=== PATIENT | male | born 1960 | race Caucasian/White ===

== ENCOUNTER 2023-06-11 14:49 | Inpatient (IN) | payer OTHER, MEDICAID, SELFPAY ==
[2023-06-11] VITALS (29 sets, daily range): BP systolic 88–154; BP diastolic 50–100; PULSE 2–100; BMI 28.2
[2023-06-11 11:42] LABS: Glucose - Point of Care 141 mg/dl (70-99)
[2023-06-11 12:13] LABS: % Basophils 0.1 % (0-2); % Immature Granulocytes 1.1 % (0-0.5); % Lymphocytes 4.2 % (20.5-51.1); % Monocytes 5.6 % (1.7-9.3); Absolute Immature Granulocytes 0.2 10^3/uL (0-0.05); Absolute Lymphocytes 0.8 10^3/uL (1.2-3.4); Absolute Monocytes 1.1 10^3/uL (0.1-0.6); Absolute Neutrophils 17.2 10^3/uL (1.4-6.5); Hematocrit 44.1 % (39.0-52.0); Mean Corp Hgb Conc. 29.5 g/dL (33.0-37.0); Mean Corpuscular Hgb 27.1 pg (27.0-31.0); Mean Corpuscular Volume 91.9 fL (80.0-94.0); Mean Platelet Volume 10.6 fL (7.4-10.4); Nucleated Red Blood Cells % 0.4 % (-); Platelet Count 299 10^3/uL (130-400); Red Cell Dist. Width 17.7 % (11.5-14.5); White Blood Cell Count 19.3 10^3/uL (4.8-10.8)
[2023-06-11 12:39] LABS: ALT (SGPT) 21 U/L (0-50); AST (SGOT) 30 U/L (17-59); Albumin 3.5 g/dl (3.5-5.0); Alkaline Phosphatase 149 U/L (38-126); Blood Urea Nitrogen 94 mg/dl (9-20); Calcium 8.6 mg/dl (8.4-10.2); Carbon Dioxide 24 mmol/L (22-30); Chloride 105 mmol/L (98-107); Glucose 149 mg/dl (70-99); Potassium 5.6 mmol/L (3.5-5.1); Sodium 136 mmol/L (135-145); Total Protein 6.3 g/dl (6.3-8.2); eGFR 29.39
--- NOTE | 2023-06-11 12:40 | ED.GENMED ---
History of Present Illness
General
Chief Complaint: Breathing Problem
Source: patient
Exam Limitations: none
Time Seen by Provider: 06/11/23 11:46
Travel History
Have you had any contact with someone who has COVID-19?: No
Do you have any symptoms of coronavirus? Fever > 100 degrees, chills, cough, shortness of breath, sore throat, loss of taste or smell, muscle aches, or headache?: No
History of Present Illness
History of Present Illness:
this is a 62yo male with extensive medical history including COPD, A-fib, cardiac arrest, pneumonia who still smokes presents feeling short of breath. He states his shortness of breath progressed over the last few days. Patient reports he feels
like it was caused by trying to use the breathing treatments at home. Patient notes he still smokes. He does not use his CPAP. He has a history of some noncompliance. He was recently admitted to the hospital back in April. Denies reported
fevers
Past History
Past History
ED Past Medical History: Arrthythmia, CHF, COPD, HTN, Hypercholesterolemia, NIDDM, Valvular disease and Other (Previous cardiac arrest)
ED Past Surgical History: Cardiac and Orthopedic
Social History
Tobacco: Smoker
Alcohol: None
Drug: None
Personal:
Living: with family
Phy Exam
Physical Exam
Physical Exam:
CONSTITUTIONAL Patient alert and oriented to person, place and time.ill-appearing. Vital signs reviewed. Markedly hypoxic
HEAD atraumatic, normocephalic.
EYES eyelids normal to inspection,Extraocular muscles intact, Conjunctiva normal, Sclera normal.
NECK normal range of motion, Trachea midline, no jugular venous distention.
RESPIRATORY CHEST moderate respiratory distress noted, Chest expansion equal, wheezing throughout, scattered rales as well.
CARDIOVASCULAR irregularly irregular and tachycardic
ABDOMEN mild distention.
UPPER EXTREMITY range of motion normal, Motor strength normal, no cyanosis, no edema.
LOWER EXTREMITY bilateral edema. Chronic venous stasis changes bilateral
NEURO Speech normal, No focal motor deficits, Jonathan coma scale 15, Memory normal, Cranial Nerves intact to screening exam.
SKIN skin warm, dry, and normal in color.
Scores
Heart Failure Risk
Heart Failure Risk Score: Not Applicable
Course
Orders/Labs/Results
Orders:
Orders
06/11/23 11:51
Electrocardiogram (*1) Urgent
Reason for Study: Shortness of Breath
06/11/23 11:53
Cr Chest Portable [CR Chest Portable - 1 View] Urgent
Comment:
Reason For Exam: sob
Reason Study Needs to be Portable: Unable to Transport
06/11/23 11:54
EKG- Treatment ONCE
06/11/23 11:56
Complete Blood Count/With Diff Urgent
Comprehensive Metabolic Panel Urgent
NT-proBNP Urgent
Troponin I Urgent
06/11/23 11:57
Bipap [RESP] Urgent
Patient to use own unit?: No
Inspiratory Pressure (cm H2O): 15
Expiratory Pressure (cm H2O): 5
06/11/23 12:40
Dexamethasone Sod Phosphate [Decadron] 10 mg IV NOW STA
06/11/23 12:54
Cefepime HCl [Maxipime] 2,000 mg IV NOW STA
06/11/23 13:00
Vancomycin [Vancocin] 1,500 mg 0.9% Sodium Chloride [Nss] 20 ml 0.9% Sodium Chloride 250 ml [Nss] 250 ml IV NOW
06/11/23 13:03
Lactic Acid Q4H
Comment: CANCEL 2nd LACTIC ACID IF 1st LACTIC ACID IS LESS THAN 2
Blood Culture Q30M
[place] Source: Blood/Venous
Specimen Description:
Blood Culture Q30M
[place] Source: Blood/Venous
Specimen Description:
06/11/23 13:15
ABG [Arterial Blood Gas] Urgent
%Oxygen/Room Air: 50
06/11/23 16:45
Lactic Acid Q4H
Comment: CANCEL 2nd LACTIC ACID IF 1st LACTIC ACID IS LESS THAN 2
Abnormal Lab Results
06/11/23 06/11/23 06/11/23
11:41 11:56 13:15
WBC 19.3 H 10^3/uL
(4.8-10.8)
MCHC 29.5 L g/dL
(33.0-37.0)
RDW 17.7 H %
(11.5-14.5)
MPV 10.6 H fL
(7.4-10.4)
Abs Immat Gran (auto) 0.2 H 10^3/uL
(0-0.05)
Absolute Neuts (auto) 17.2 H 10^3/uL
(1.4-6.5)
Absolute Lymphs (auto) 0.8 L 10^3/uL
(1.2-3.4)
Absolute Monos (auto) 1.1 H 10^3/uL
(0.1-0.6)
Immature Gran % 1.1 H %
(0-0.5)
Neutrophils % 89.0 H %
(42.2-75.2)
Lymphocytes % 4.2 L %
(20.5-51.1)
pH 7.18 L*
(7.35-7.45)
pCO2 73 H* mmHg
(35-48)
Potassium 5.6 H mmol/L
(3.5-5.1)
BUN 94 H mg/dl
(9-20)
Creatinine 2.4 H mg/dL
(0.7-1.3)
Glucose 149 H mg/dl
(70-99)
Alkaline Phosphatase 149 H U/L
(38-126)
POC Glucose 141 H mg/dl
(70-99)
06/11/23 11:56
06/11/23 11:56
Vital Signs
Initial and Last Documented VS:
Initial Vital Signs
Temp Pulse Resp BP Pulse Ox
98.4 F 120 18 152/81 74
06/11/23 11:35 06/11/23 11:35 06/11/23 11:35 06/11/23 11:35 06/11/23 11:35
Last Documented Vital Signs
Temp Pulse Resp BP Pulse Ox
98.4 F 113 19 145/100 95
06/11/23 11:35 06/11/23 13:30 06/11/23 13:15 06/11/23 13:00 06/11/23 13:15
MDM/Problems Addressed
MDM/Problems Addressed:
Acute kidney injury, acute pneumonia, acute congestive heart failure, acute exacerbation COPD
*Radiology
Radiology exam reviewed: preliminary read by ED provider (Present infiltrate)
*Pulse Oximetry
Patient hypoxic: yes
*EKG
Interpreted by ED Provider?: Yes
Interpretation: abnormal
Rate: tachycardiac
Rhythm: a-fib
Ischemia: non-specific ST changes
*Material Loader Interpretation
Rate: tachycardiac
Interpretation: abnormal
Rhythm: a-fib
*Critical Care Note
Total Time (30-74mins, 75-104mins- exclusive of procedures): 60 minutes
Data Reviewed
Review of Other/Old Records Reveals: Labs and Discharge Summary (From April 2023)
Source: patient
Further Testing Considered But Not Given:
Consider CT of the chest but suspect pneumonia
Patient Management
Discussion with other providers: Hospitalist
Escalation/DeEscalation of care consider admission/obs:
62-year-old male presents with respiratory distress and hypoxia. On reevaluation his heart rate is coming down respiratory distress improved on BiPAP but patient states he cannot tolerate it. Will trial mid flow. Admit. Broad-spectrum
antibiotics, steroids. May need bronchodilators and diuresis
ED Attending Note
-
Portions of this chart may have been created with voice recognition software.� Occasional wrong word or��sound alike� substitutions may have occurred due to the inherent limitations of voice recognition software.
Discharge Plan
Departure
Patient Disposition: Admit
Date of Disposition: 06/11/23
Time of Disposition: 13:05
Admit to: IMU
Presentation/result/management discussed w/ accepting MD/DO: Hospitalist
Discharge Problem:
Acute exacerbation of chronic obstructive pulmonary disease (COPD), Pneumonia, Acute kidney injury, CHF (congestive heart failure)
Prescriptions:
No Action
allopurinol 100 mg Tablet
100 mg PO DAILY
sotalol 120 mg Tablet
120 mg PO QPM
dapagliflozin propanediol [Farxiga] 10 mg Tablet
10 mg PO DAILY
digoxin 0.125 MG tablet
0.125 mg PO MOWEFR
metoprolol succinate 100 mg Tablet Extended Release 24 Hr
100 mg PO BID Qty: 60 0RF
prednisone 10 mg tablet
10 mg PO DIRECTED Qty: 7 0RF
Rx Instructions:
20 mg daily for 2 days, 10 mg daily for 3 days and stop, start on 06/09/23
Eliquis 5 MG tablet
5 mg PO BID Qty: 0 0RF
hydrocodone-acetaminophen 10-325 mg Tablet
1 tab PO Q4HPRN PRN (Reason: severe pain)
Trelegy Ellipta 100-62.5-25 mcg Blister With Device
1 inh INHALATION R DAILY
furosemide 40 mg tablet
20 mg PO MOWEFR
guaifenesin 600 mg tablet extended release 12hr
600 mg PO [id number] PRN (Reason: cough)
albuterol sulfate 2.5 mg /3 mL (0.083 %) Solution For Nebulization
2.5 mg INHALATION R Q4HPRN PRN (Reason: sob)
Referrals:
Maycol Dhaliwal MD [Family Provider] -
Interventions
Interventions:
*ED COVID-19 Vaccine History Last Done: 06/11/23 11:35
ED- Cardiac Assessment Last Done: 06/11/23 12:01
ED- Pulmonary Assessment Last Done: 06/11/23 12:01
[2023-06-11 12:47] LABS: NT-proBNP 7490 pg/ml
[2023-06-11] MEDS: DECADRON 10 MG IV (13:08)
[2023-06-11] MEDS: MAXIPIME 2000 MG IV (13:21)
[2023-06-11] MEDS: VANCOCIN 300 MG IV (13:22)
[2023-06-11] MEDS: VANCOCIN 300 ML IV (13:22)
[2023-06-11 13:23] LABS: B.E. -2.8 mmol/L; HCO3 27.2 mmol/L (21-28); PO2 92 mmHg (83-108)
[2023-06-11 13:26] LABS: PCO2 73 mmHg (35-48); pH 7.18 (7.35-7.45)
[2023-06-11 13:28] LABS: Lactic Acid 0.8 mmol/L (0.7-2.0)
[2023-06-11] MEDS: LASIX 40 MG IV (14:34)
--- NOTE | 2023-06-11 14:55 | HPS.HSE ---
Family Physician
-
Family Physician: Maycol Dhaliwal
Chief Complaint
-
Shortness of breath.
History of Present Illness
Patient is a 62 years old male with extensive medical history including CHF, COPD, permanent A-fib, cardiac arrest secondary to V-fib, medical noncompliance presents to the emergency room with gradually worsening shortness of breath. Patient
describes gradual worsening shortness of breath over the period of the last week. He describes productive cough, denies chest pain or fever. Denies loss of consciousness.
Patient with history of medical noncompliance. Currently smokes tobacco.
While in emergency room patient was found to be in distress, somnolent with initial pulse ox as low of 74%. Further evaluation including ABG was consistent with hypercapnia and respiratory acidosis. Patient was not able to tolerate attempted
BiPAP. He was placed on mid flow oxygen, at the time of my evaluation patient is somnolent but with no evidence of distress saturating in the low 90s on 4 L of mid flow.
After explanation of her concern of progressive respiratory failure and high risk of intubation patient would like to reconsider attempt of BiPAP.
Medical History
Past Medical History
Past Medical History: Reports Arrhythmia (Permanent A-fib), CHF and COPD
Past Surgical History: Reports Other (AICD)
Social History
Tobacco: Smoker
Alcohol: Binge drinker (Patient reports alcohol drinking at least once a week)
Drug: None
Personal:
Living: With Family
Family History
Family History: Not pertinent
Allergies / Home Medications
Allergies reflects when Allergies were last updated in [facility].
Home Medications with original date entered in [facility]
Allergy/Medication List:
Allergies
Allergy/AdvReac Type Severity Reaction Status Date / Time
Penicillins Allergy childhood Verified 06/11/23 11:38
Home Medications
allopurinol 100 mg tablet 100 mg PO DAILY Gout 02/01/23
dapagliflozin propanediol 10 mg tablet (Farxiga) 10 mg PO DAILY Diabetes 02/01/23
digoxin 125 mcg (0.125 mg) tablet 0.125 mg PO MOWEFR Arrhythmia 02/01/23
sotalol 120 mg tablet 120 mg PO QPM Arrhythmia 02/01/23
apixaban 5 mg tablet (Eliquis) 5 mg PO BID Blood clot prevention/tx #0 tabs 04/05/23
metoprolol succinate 100 mg tablet,extended release 24 hr 100 mg PO BID Arrhythmia #60 tabs 04/05/23
prednisone 10 mg tablet 10 mg PO DIRECTED Lung/breathing issues #7 tabs 04/05/23
albuterol sulfate 2.5 mg/3 mL (0.083 %) solution for nebulization 2.5 mg inhalation R Q4HPRN PRN sob 06/11/23
fluticasone fur. 100 mcg-umeclid 62.5 mcg-vilant 25 mcg inhalat.powder (Trelegy Ellipta) 1 inh inhalation R DAILY 06/11/23
furosemide 40 mg tablet 20 mg PO MOWEFR Fluid retention/Swelling 06/11/23
guaifenesin 600 mg tablet, extended release 12 hr 600 mg PO [id number] PRN cough 06/11/23
hydrocodone 10 mg-acetaminophen 325 mg tablet 1 tab PO Q4HPRN PRN severe pain 06/11/23
Review of Systems
-
A 12 point ROS was completed and negative except as noted: Yes
Respiratory: Reports See HPI
Cardiac: Reports See HPI
Physical Exam
Vital Signs
Vital Signs
Temp Pulse Resp BP Pulse Ox
98.4 F 99 19 134/81 95
06/11/23 11:35 06/11/23 14:34 06/11/23 13:15 06/11/23 14:34 06/11/23 13:15
Physical Exam
General: Well Developed, Well Nourished and No Apparent Distress
HEENT: NormoCephalic, Moist mucous membranes and Atraumatic
Respiratory: Wheezes, Rhonchi and Crackles
Cardiac: S1/S2 and Irregular Rhythm; No Murmur or Rub
GI: Soft, Non Tender, Non Distended and Normal Bowel Sounds; No Organomegaly
Rectal: Deferred by Provider
Musculoskeletal: No Clubbing, No Cyanosis and No Edema
Skin: No Rash
Neuro: Awake, Alert, Oriented, AO x 3, Nonfocal/grossly intact and Other (Somnolent)
Laboratory Results
-
06/11/23 11:56
06/11/23 11:56
Laboratory Results
pH 7.18 (7.35-7.45) L* 06/11/23 13:15
pCO2 73 mmHg (35-48) H* 06/11/23 13:15
pO2 92 mmHg (83-108) 06/11/23 13:15
HCO3 27.2 mmol/L (21-28) 06/11/23 13:15
Lactic Acid 0.8 mmol/L (0.7-2.0) 06/11/23 13:03
Total Bilirubin 1.0 mg/dl (0.2-1.3) 06/11/23 11:56
AST 30 U/L (17-59) 06/11/23 11:56
ALT 21 U/L (0-50) 06/11/23 11:56
Alkaline Phosphatase 149 U/L (38-126) H 06/11/23 11:56
Troponin I 0.020 ng/ml 06/11/23 11:56
Data Reviewed
-
Diagnostic Radiology: Report Reviewed by me
Lab Data: Labs Reviewed by me
Impression/Plan
-
IMPRESSION:
Acute hypoxic/hypercapnic respiratory failure.
Severe respiratory acidosis
Bilateral infiltrates
COPD exacerbation
Acute CHF preserved EF
FORTINO
Hyperkalemia
TME secondary to CO2 retention
Conditions prior to admission:
COPD
Obstructive sleep apnea intolerant to CPAP
CHF preserved/recovered EF: HAZEL 02/22 LVEF of 55% and severe pulmonary hypertension
V-fib status post AICD
Essential hypertension
Gout
Diabetes by history not on medications at home.
CKD stage IIIa-b
Ongoing tobacco smoker.
Alcohol use disorder
PLAN:
Acute hypoxic/hypercarbic respiratory failure.
Presents with hypoxia and pulse ox of 74% on room air.
Exam with +3 pitting edema to lower extremities
Elevated pro CHF BNP
Leukocytosis
ABG consistent with severe respiratory acidosis and hypoxia
Chest x-ray with bilateral infiltrate
Differential diagnosis for above likely multifactorial suspected decompensated CHF preserved EF also with severe pulmonary hypertension, COPD exacerbation, possible and less likely bilateral pneumonia.
Continue oxygen supplementation
Patient is willing to try BiPAP
Monitor closely, high risk for intubation if further decompensation with worsening of respiratory acidosis.
BiPAP ordered 14/08.
Lasix 40 mg IV x 1 monitor for response if stable hemodynamically we will continue with IV diuresis
Empiric antibiotics vancomycin/cefepime.
Sputum culture.
IV Decadron.
Short acting inhaled bronchodilators
Martial Arts Instructor/pulmonology consultation
Acute on chronic CHF preserved EF/pulmonary hypertension.
Preadmission regimen including metoprolol, Farxiga, furosemide 3 times a week, questionable compliance
Continue daily weight.
IV diuresis as above
COPD suspect exacerbation with decompensated respiratory failure.
Continue short acting bronchodilators, empiric antibiotics, corticosteroids
Permanent atrial fibrillation
History of V-fib status post AICD PPM.
Continue metoprolol, sotalol, digoxin
Check digoxin level
Continue anticoagulation with Eliquis
Gout
Continue allopurinol.
Alcohol use disorder.
High risk for DT
Start MSAS protocol
Thiamine
Ongoing tobacco use disorder
Extensively counseled about quitting
Full code
DVT prophylaxis/Eliquis
[2023-06-11 16:21] LABS: B.E. -4.8 mmol/L; HCO3 28.5 mmol/L (21-28); O2 Saturation % 97.6 % (94-98); PO2 97 mmHg (83-108)
[2023-06-11 16:24] LABS: PCO2 103 mmHg (35-48); pH 7.05 (7.35-7.45)
[2023-06-11 16:36] LABS: INR 1.66; PT 19.4 Sec (11.4-14.6)
[2023-06-11 16:38] LABS: GGTP 99 U/L (15-73); Magnesium 2.4 mg/dl (1.6-2.3); Phosphorus 7.6 mg/dl (2.5-4.5)
[2023-06-11 16:40] LABS: Alcohol None Detected
[2023-06-11] MEDS: LASIX 60 MG IV (16:40)
[2023-06-11 16:45] LABS: B-Hydroxybutyrate 0.19 mmol/L (0.02-0.27)
[2023-06-11 16:46] LABS: Glucose - Point of Care 129 mg/dl (70-99)
--- NOTE | 2023-06-11 16:50 | CON.INTV ---
Consultation
Consultation Request
Date/Time Consultation Requested: 06/11/2023
Date/Time Consultation Performed: 06/11/2023
Requesting Provider: Dr. Pope
Performing Provider: Dr. Mahesh Bernal
Reason for Consultation: Acute hypercapnic respiratory failure requiring noninvasive mechanical vent
Medical History
Past Medical History
Past Medical History: Other (See assessment and plan section)
Social History
Tobacco: Smoker
Drug: None
Personal:
Living: With Family
Family History
Family History: Unable to Obtain
Allergies / Home Medications
Allergies
Allergy/AdvReac Type Severity Reaction Status Date / Time
Penicillins Allergy childhood Verified 06/11/23 11:38
Home Medications
Medication Instructions Recorded Confirmed Last Taken Type
allopurinol 100 mg tablet 100 mg PO DAILY Gout 02/01/23 06/11/23 04/02/23 History
dapagliflozin propanediol 10 mg 10 mg PO DAILY Diabetes 02/01/23 06/11/23 06/10/23 History
tablet (Farxiga)
digoxin 125 mcg (0.125 mg) tablet 0.125 mg PO MOWEFR Arrhythmia 02/01/23 06/11/23 04/02/23 History
sotalol 120 mg tablet 120 mg PO QPM Arrhythmia 02/01/23 06/11/23 04/01/23 History
apixaban 5 mg tablet (Eliquis) 5 mg PO BID Blood clot 04/05/23 06/11/23 04/02/23 Rx
prevention/tx #0 tabs
metoprolol succinate 100 mg 100 mg PO BID Arrhythmia #60 tabs 04/05/23 06/11/23 Unknown Rx
tablet,extended release 24 hr
prednisone 10 mg tablet 10 mg PO DIRECTED 04/05/23 06/11/23 Unknown Rx
Lung/breathing issues #7 tabs
albuterol sulfate 2.5 mg/3 mL 2.5 mg inhalation R Q4HPRN PRN sob 06/11/23 06/11/23 Unknown History
(0.083 %) solution for nebulization
fluticasone fur. 100 mcg-umeclid 1 inh inhalation R DAILY 06/11/23 06/11/23 Unknown History
62.5 mcg-vilant 25 mcg
inhalat.powder (Trelegy Ellipta)
furosemide 40 mg tablet 20 mg PO MOWEFR Fluid 06/11/23 06/11/23 Unknown History
retention/Swelling
guaifenesin 600 mg tablet, 600 mg PO [id number] PRN cough 06/11/23 06/11/23 Unknown History
extended release 12 hr
hydrocodone 10 mg-acetaminophen 1 tab PO Q4HPRN PRN severe pain 06/11/23 06/11/23 Unknown History
325 mg tablet
Review of Systems
-
Unable to Obtain full review of systems at this time due to: Acuity and Other (Noninvasive mechanical ventilation)
Vitals / Labs / Diagnostic Testing
Vital Signs
Temp Pulse Resp BP Pulse Ox
97.9 F 101 18 146/84 97
06/11/23 16:06 06/11/23 16:00 06/11/23 16:00 06/11/23 16:00 06/11/23 16:00
Lab Data
06/11/23 11:56
Laboratory Results
06/11/23 06/11/23 06/11/23
13:15 16:07 16:10
PT 19.4 H
INR 1.66
APTT 39.0 H
pH 7.18 L* 7.05 L*
pCO2 73 H* 103 H*
pO2 92 97
HCO3 27.2 28.5 H
O2 Delivery Level
Diagnostic Testing:
Assessment
-
Acute on chronic hypercapnic respiratory failure requiring noninvasive mechanical ventilation acute exacerbation of COPD.
AB06/11/2023: 7. 18/73/92
Chest x-ray: Bilateral infiltrates.
Increased proBNP
Differential diagnosis includes pneumonia ( has leukocytosis) and/or acute on chronic heart failure with preserved ejection fraction.
HAZEL:01/2023 :Normal left ventricular systolic function. Left ventricular ejection fraction
�is 55%.Mild to moderate mitral regurgitation.Moderate tricuspid regurgitation.
Suspect chronic cor pulmonale due to underlying COPD
Conditions RELIEF MAP MODELER:
Dosed on hospital admission 04/2023: Hypercapnic respiratory failure due to COPD exacerbation.
COPD: symbicort. Patient states he is not using it or any BD or O2 at home
FLAVIO: PSG 6 y ago, once, rec CPAP, used only briefly s O2 and could not adapt, ended up returning equipment
AFib on apixaban, metoprolol, sotalol, digoxin
HFrecoveredEF on HAZEL 02-16-23 (EF 45=5% on TTE )
V-fib cardiac arrest, s/p ICD/PM
MReg
HTN
Gout
Arthritis
DM
CKD
Peripheral artery disease, s/p iliac stent
Back surgery
Smoker: 1 ppd for 49 y, down to 7 cig/d for last 2 m
ETOH use: beer, weekly intoxication for 47 y till 3 m ago when quit ETOH
Assessment and plan:
Patient is critically ill, lethargic, with acute severe hypercapnic respiratory failure, acute onset change in mental status.
Current acute decompensation possibly from infectious etiology pneumonia/with increased proBNP heart failure is a possibility on top of his underlying COPD with acute exacerbation.
-
It is noted in the past that the patient has refused oxygen therapy and has history of medical noncompliance. Notes reviewed from admission in April 2023.
-
I personally evaluated the patient at the bedside multiple times, BiPAP has been adjusted several times per
Most current settings 20/5 with a backup rate of 15.
Will repeat ABG in half an hour, if there is no significant improvement then patient will need intubation.
I did discuss in detail with the family above plan, they would want intubation if needed. and daughter.
-
Acute exacerbation of COPD:
Agree with IV corticosteroids
Discontinue inhalers as the patient is unable to perform
Start nebulizer therapy
-
Given bilateral chest x-ray with leukocytosis.
Agree with broad-spectrum antibiotics, patient was in the hospital in April. High risk for multidrug-resistant bacteria.
Sputum culture when able
Aspiration precautions
N.p.o. for now.
Cultures were sent we will follow
-
With increased proBNP, possibly heart failure with preserved ejection fraction. Alternatively, proBNP may be from cor pulmonale as the patient is not compliant with oxygen or BiPAP therapy.
Negative cardiac troponin.
He has bilateral cyanotic feet which per are chronic. Significant lower extremity edema 2-3+.
Lasix 40 mg given in the emergency room. No significant response.
Creatinine is elevated at 2.4, will give 60 mg of Lasix IV now.
Will place a Yung. Has residual of 240 cc in the bladder.
May need to repeat echocardiogram at some point.
Continue outpatient cardiac medications.
-
Acute kidney injury
Hyperkalemia
Agree with Lasix as above
Hopefully can correct acidosis
Repeat BMP at 6 PM, may need to treat hyperkalemia with IV bicarbonate if there is no improvement in acidosis.
-
History of obstructive sleep apnea: Patient did not tolerate CPAP.
Currently tolerating BiPAP here after insistence from the family and staff. Patient initially was refusing BiPAP therapy.
He also was declining intubation if necessary. Family made a decision to proceed with intubation if necessary.
-
Alcohol withdrawal protocol.
-
DVT prophylaxis-on apixaban.
If remains n.p.o., NG tube may need to be placed to provide anticoagulation therapy.
N.p.o. for now, high risk of aspiration.
-
Case has been discussed with primary team, family discussed at the bedside extensively by Dr. Bernal 06/11/2023.
Multiple conversations at the bedside after evaluation with nursing and respiratory therapy.
-
Prognosis is guarded.
-
Critical care statement: A total of 40minutes of critical care time was provided for this patient today. This includes management of unstable vital signs, evaluation of the patient at bedside, reviewing the patient's pertinent medical records
including ventilator settings, arterial blood gases, radiographs, microbiology, laboratory evaluations and discussion with primary team, critical care nursing, and respiratory therapy.
[2023-06-11] MEDS: VIBRAMYCIN 260 MG IV (17:20)
[2023-06-11] MEDS: ATIVAN 1 MG IV (17:20)
[2023-06-11 17:24] LABS: HCO3 26.6 mmol/L (21-28); O2 Saturation % 99.8 % (94-98); PO2 132 mmHg (83-108)
[2023-06-11 17:26] LABS: PCO2 94 mmHg (35-48); pH 7.06 (7.35-7.45)
[2023-06-11 17:27] LABS: Urine Albumin 2+ (Neg - Trace); Urine Bilirubin Negative (Negative); Urine Character Clear (Clear); Urine Color Yellow; Urine Glucose 1+ (Negative); Urine Ketone Negative (Negative); Urine Leukocyte Negative (Negative); Urine Nitrite Negative (Negative); Urine Occult Blood Negative (Negative); Urine Urobilinogen Negative (Neg - 1+)
--- NOTE | 2023-06-11 17:32 | W.PN.UPDATE ---
Update Note
Progress Note Update
Multiple bedside evaluations, patient became agitated. Intermittently obtunded. Unfortunately, he has failed noninvasive mechanical ventilation. Relative contraindication to 8 due to poor mental status.
Plan to pull BiPAP mask off. Required 1 dose of Ativan.
Repeat ABG without significant improvement. pH continues to be under 7.1.
Additional Lasix was given, Yung is in place.
Family at the bedside, again discuss critical situation. I am recommending intubation and mechanical ventilation. They are agreeable.
Anesthesia was called, immediately came to the bedside. Intubation will occur.
Mechanical ventilation will be started, assist-control, 500/16/60%/+5.
Repeat ABG later today.
Start propofol drip
Fentanyl IV pushes as needed
NG tube will be placed-
-
Additional critical care time 35 minutes.
[2023-06-11 17:38] LABS: Urine Bacteria Moderate (Negative); Urine Red Blood Cell 0-2 /HPF (0-2); Urine White Cell 0-2 /HPF (0-5)
[2023-06-11] MEDS: SUBLIMAZE 50 MCG IV ×3 (17:41→19:18)
[2023-06-11 17:45] LABS: Amphetamines Negative (Negative); Barbiturates Negative (Negative); Benzodiazepines Negative (Negative); Buprenorphine Negative (Negative); Cocaine Negative (Negative); Marijuana Negative (Negative); Methadone Negative (Negative); Methamphetamines Negative (Negative); Opiates Positive (Negative); Phencyclidine Negative (Negative); Tricyclic Antidepressants Negative (Negative)
--- NOTE | 2023-06-11 17:49 | W.PN.ANESINT ---
Anesthesia Intubation Note
- Intubation Note
Intubation Note:
Diagnosis: respiratory distress
Blade: glidescope
Tube Size: 8.0
Depth: 24cm
Side Taped: center
Drugs Used: 40mg propofol
Grade View: 1
EtCO2 Present: yes
Atraumatic: yes
Attempts: 1
Insertion Start and Stop Time: 1735 start 1740 end
SaO2 Pre: 95
SaO2 Post: 99
Glidescope Used: yes
Other Airway Adjustments: none
Pre-Oxygenated: yes
Portable Chest X-Ray:
RSI:
Suctioned: not necessary
Bilateral Breath Sounds Confirmed: b/l breathsounds confirmed
Vent Settings:
Settings per _x__Attending Physician
[2023-06-11] MEDS: DUONEB 3 ML INH ×2 (17:53→19:34)
[2023-06-11 18:02] LABS: Fentanyl, Urine Negative (Negative)
--- NOTE | 2023-06-11 18:03 | PTCARENOTE ---
Pt to ICU for COPD, PNA, CHF, FORTINO on BIPAP. ABG drawn and BIPAP settings increased. ABG redrawn and Pt intubated by anesthesia. 8.0/23 lip on right. AC 16/500/5/40%. Sucretions via ETT yellow/green and copious. Insp wheezes and rhonchi. Sedated
with propofol and fentanyl IVP. Dobhoff placed R nare 70cm. No UOP from lasix given in ED. Bladder scan 260cc. Dr. Bernal notified and dias ordered. 14F placed with yellow urine out. Lasix 60mg IVP given as ordered. Labs drawn as ordered. CXR
performed for verification of ETT and Dobhoff-to be read. Right DP pulse not present by doppler, all other pedal pulses dopplered. BLE cool, pale. Dr. Bernal notified. Vancomycin and doxy infused.
[2023-06-11 18:33] LABS: Blood Urea Nitrogen 104 mg/dl (9-20); Calcium 8.4 mg/dl (8.4-10.2); Carbon Dioxide 26 mmol/L (22-30); Chloride 102 mmol/L (98-107); Estimated Creatinine Clearance 32 ml/min; Glucose 143 mg/dl (70-99); Potassium 6.2 mmol/L (3.5-5.1); Sodium 138 mmol/L (135-145); Triglycerides 142 mg/dl (10-149)
[2023-06-11] MEDS: BETAPACE 120 MG PO (18:39)
[2023-06-11] MEDS: THIAMINE INJECTION 200 MG IV (19:21)
[2023-06-11] MEDS: DEXTROSE 50% SYRINGE 25 GRAMS IV (19:21)
[2023-06-11] MEDS: NOVOLIN R 10 UNITS IV (19:21)
[2023-06-11] MEDS: ELIQUIS 5 MG TUBE (19:32)
[2023-06-11] MEDS: SUBLIMAZE 100 IV (19:32)
[2023-06-11 19:37] LABS: B.E. -2.1 mmol/L; O2 Saturation % 87.8 % (94-98); PCO2 52 mmHg (35-48); pH 7.29 (7.35-7.45)
[2023-06-11 19:39] LABS: PO2 56 mmHg (83-108)
--- NOTE | 2023-06-11 19:52 | PHA.VAN.IN ---
Assessment
- Assessment
Renal Function: Appears elevated from baseline (1.5 - 1.7)
Maximum Temperature: 98.4 F oral 06/10 @ 1135
Minimum Temperature: 96.7 F core 06/10 @ 1913
Concomitant Antimicrobials: cefepime, doxycycline
Plan
- Plan
Initial / Loading Dose: vanc 1500mg administered in ED
Maintenance Regimen: dosing by level
Monitoring: random level 06/11 0600
MRSA Screen: Ordered per protocol
Pharmacokinetics Vancomycin I
- -
Patient Age: 62
Patient Sex: Male
Vancomycin Day #: 1
Indication: Pulmonary/Respiratory
Requesting Provider: Dr. Pope
Pertinent Antimicrobial Allergies:
penicillin (as a child) - unknown reaction
Height / Weight:
Height 6 ft
Actual Weight 94.2 kg
- Vital Signs / Lab Results
Temp Pulse Resp BP Pulse Ox
96.7 F L 104 17 93/70 98
06/11/23 19:13 06/11/23 18:15 06/11/23 18:15 06/11/23 18:15 06/11/23 18:15
Lab Results - Hematology
06/11/23
11:56
WBC 19.3 H
Lab Results - Chemistry
06/11/23 06/11/23
11:56 17:52
BUN 94 H 104 H*
Creatinine 2.4 H 2.6 H
Estimated Creat Clear 32
Albumin 3.5
06/11/23
13:03
Lactic Acid 0.8
Lab Results - Urine
06/11/23
17:08
Urine Nitrite Negative
Ur Leukocyte Esterase Negative
Urine WBC 0-2
Urine Bacteria Moderate A
Microbiology Results
06/11/23 17:53 Gram Stain - Preliminary
Endotracheal
--- NOTE | 2023-06-11 20:00 | PTCARENOTE ---
Patient received in bed, intubated and sedated on Propofol. Bilateral wrist restraints maintained. Afob on monitor, afebrile, blood pressure as documented. Bilateral PTs present by doppler, +3 bilateral lwer extremity edema. #8 ETT at 23 cm at
the right lip, tolerating vent settings A/C 16 TV 500 FIO2 40% Peep 5, lungs coarse bilaterally with scattered wheeze, pulse ox 98%. Suctioned for large amount of yellow green sputum. DHT in right nare, abdomen round with hy[oactive bowel sounds.
Thermister dias draining large amounts of urine. Foam dressings on sacrum and left arm. #20 g in right forearm with Propofol gtt infusing. #18 g in left arm flushed and patent. Turned and repositioned
[2023-06-11] MEDS: DECADRON 4 MG IV (21:05)
[2023-06-11] MEDS: DIPRIVAN 100 IV (22:55)
[2023-06-11 23:46] LABS: Glucose - Point of Care 125 mg/dl (70-99)
[2023-06-12] VITALS (24 sets, daily range): BP systolic 98–142; BP diastolic 53–93; BMI 27.2
[2023-06-12] MEDS: MAXIPIME 2000 MG IV ×2 (00:11→12:37)
[2023-06-12] MEDS: STERILE WATER FOR INJECTION 10 ML IV ×2 (00:12→12:37)
[2023-06-12] MEDS: NOVOLOG FLEXPEN-LOW RESISTANCE SC ×2 (00:16→06:13)
--- NOTE | 2023-06-12 00:17 | PTCARENOTE ---
Patient reassessed, no changes in assessment
[2023-06-12 01:24] LABS: % Basophils 0.1 % (0-2); % Lymphocytes 5.1 % (20.5-51.1); % Neutrophils 91.8 % (42.2-75.2); Absolute Immature Granulocytes 0.1 10^3/uL (0-0.05); Absolute Lymphocytes 0.6 10^3/uL (1.2-3.4); Absolute Monocytes 0.2 10^3/uL (0.1-0.6); Absolute Neutrophils 9.8 10^3/uL (1.4-6.5); Hematocrit 36.8 % (39.0-52.0); Hemoglobin 11.6 g/dL (13.0-18.0); Mean Corp Hgb Conc. 31.5 g/dL (33.0-37.0); Mean Corpuscular Hgb 27.2 pg (27.0-31.0); Mean Corpuscular Volume 86.4 fL (80.0-94.0); Mean Platelet Volume 9.7 fL (7.4-10.4); Nucleated Red Blood Cells % 0.4 % (-); Platelet Count 203 10^3/uL (130-400); Red Blood Cell Count 4.26 10^6/uL (4.70-6.10); Red Cell Dist. Width 17.7 % (11.5-14.5); White Blood Cell Count 10.7 10^3/uL (4.8-10.8)
[2023-06-12 01:58] LABS: Blood Urea Nitrogen 97 mg/dl (9-20); Calcium 8.5 mg/dl (8.4-10.2); Carbon Dioxide 21 mmol/L (22-30); Chloride 107 mmol/L (98-107); Estimated Creatinine Clearance 36 ml/min; Glucose 126 mg/dl (70-99); Magnesium 2.1 mg/dl (1.6-2.3); Potassium 4.9 mmol/L (3.5-5.1); Sodium 136 mmol/L (135-145); eGFR 30.93
--- NOTE | 2023-06-12 03:15 | PTCARENOTE ---
Patient given CHG bath, linens changed. Turned and repositioned. No other changes in assessment
[2023-06-12] MEDS: DIPRIVAN 100 IV ×4 (04:17→19:14)
[2023-06-12 05:30] LABS: Vancomycin Random 16.2 ug/ml
[2023-06-12] MEDS: DECADRON 4 MG IV ×3 (05:33→21:57)
[2023-06-12] MEDS: VIBRAMYCIN 260 MG IV (05:33)
[2023-06-12 06:19] LABS: Glucose - Point of Care 129 mg/dl (70-99)
[2023-06-12] MEDS: DUONEB 3 ML INH ×3 (07:07→19:51)
--- NOTE | 2023-06-12 07:53 | CON.CAR ---
Addendum entered and electronically signed by Dank Page MD 06/12/23 11:46:
I saw and examined the patient.
The MANAGER [employer]'s note was reviewed and I agree with the note.
Comment: 62 year old male (known to Dr. Dvais, his primary track announcer), with VF arrest status post ICD, chronic HFpEF, COPD, chronic tobacco abuse, type 2 diabetes mellitus, and permanent atrial fibrillation who presented to the emergency
department with shortness of breath. He ultimately required intubation and remains intubated. He appears to have a PNA and acute on chronic HFpEF exacerbation.
- AF is rate controlled, if FORTINO does not improve likely will need to stop dig
- cont sotalol
- diuresis as able
Original Note:
Consultation
Consultation Request
Date/Time Consultation Requested: 06/11/23 19:00
Date/Time Consultation Performed: 06/12/23 09:00
Requesting Provider: ADAMARIS Harvey
Performing Provider: ADAMARIS Anne for Dr. Page
Reason for Consultation: Heart failure
Medical History
-
Chief Complaint: Shortness of breath
History of Present Illness:
Meek Og is a 62 year old male (known to Dr. Davis, his primary track announcer), with VF arrest status post ICD, chronic HFpEF, COPD, chronic tobacco abuse, type 2 diabetes mellitus, and permanent atrial fibrillation who presented to the emergency
department with shortness of breath. He endorsed shortness of breath with starting earlier this week. It progressively got worse. He presented to the emergency department with an SpO2 of 74%. Initial ABG consistent with hypercapnia and
respiratory acidosis. Noninvasive ventilation was attempted with BiPAP but unfortunately he was unable to tolerate it. He required intubation yesterday evening. This HPI is limited as the patient is currently intubated and sedated on mechanical
ventilation.
Past Medical History
Past Medical History: Arrhythmias (VF arrest, permanent atrial fibrillation), CAD, Cancer, HTN and Other (PAD)
Social History
Tobacco: Smoker
Alcohol: Occasional
Personal:
Living: With Family
Family History
Family History: Reviewed & Not Pertinent
Allergies / Home Medications
Allergy/AdvReac Type Severity Reaction Status Date / Time
Penicillins Allergy childhood Verified 06/11/23 11:38
Medication Instructions Recorded Confirmed Type
allopurinol 100 mg tablet 100 mg PO DAILY Gout 02/01/23 06/11/23 History
dapagliflozin propanediol 10 mg 10 mg PO DAILY Diabetes 02/01/23 06/11/23 History
tablet (Farxiga)
digoxin 125 mcg (0.125 mg) tablet 0.125 mg PO MOWEFR Arrhythmia 02/01/23 06/11/23 History
sotalol 120 mg tablet 120 mg PO QPM Arrhythmia 02/01/23 06/11/23 History
apixaban 5 mg tablet (Eliquis) 5 mg PO BID Blood clot 04/05/23 06/11/23 Rx
prevention/tx #0 tabs
metoprolol succinate 100 mg 100 mg PO BID Arrhythmia #60 tabs 04/05/23 06/11/23 Rx
tablet,extended release 24 hr
prednisone 10 mg tablet 10 mg PO DIRECTED 04/05/23 06/11/23 Rx
Lung/breathing issues #7 tabs
albuterol sulfate 2.5 mg/3 mL 2.5 mg inhalation R Q4HPRN PRN sob 06/11/23 06/11/23 History
(0.083 %) solution for nebulization
fluticasone fur. 100 mcg-umeclid 1 inh inhalation R DAILY 06/11/23 06/11/23 History
62.5 mcg-vilant 25 mcg
inhalat.powder (Trelegy Ellipta)
furosemide 40 mg tablet 20 mg PO MOWEFR Fluid 06/11/23 06/11/23 History
retention/Swelling
guaifenesin 600 mg tablet, 600 mg PO [id number] PRN cough 06/11/23 06/11/23 History
extended release 12 hr
hydrocodone 10 mg-acetaminophen 1 tab PO Q4HPRN PRN severe pain 06/11/23 06/11/23 History
325 mg tablet
Review of Systems
-
Unable to obtain full review of systems at this time due to: Patient Intubation
Physical Exam
Vital Signs
Temp Pulse Resp BP Pulse Ox
98.4 F 80 18 110/63 96
06/12/23 07:48 06/12/23 05:00 06/12/23 05:00 06/12/23 05:00 06/12/23 05:00
Lab Results
06/12/23 01:00
06/12/23 01:00
Troponin I 0.020 ng/ml 06/11/23 11:56
Neu-Z-Zxdksfbyhlz Pept 7490 pg/ml 06/11/23 11:56
Physical Exam
General: Well Developed, Well Nourished, No Apparent Distress and Comfortable
HEENT: Normocephalic, Anicteric and Moist Mucous Membranes
Respiratory: Clear
Cardiac: S1/S2 and Regular Rhythm
Breast: Deferred by me
GI: Soft, Non Tender, Non Distended and Normal Bowel Sounds
Rectal: Deferred by Provider
Genito-urinary: No Costovertebral Tender
Musculoskeletal: No Clubbing, No Cyanosis and Edema (+2 LE edema)
Skin: Warm and Dry
Neuro: Other (sedated)
Hematologic/Lymphatic: No Lymphadenopathy
Psych: Calm
Impression / Plan
-
Acute hypoxic respiratory failure, severe, requiring intubation
-Multifactorial in the setting of COPD and HFpEF, consider cor pulmonale
COPD, acute exacerbation, per pulmonary
HFpEF, acute on chronic
-Diuresis has been ordered, furosemide 60 mg IV, no output to 40mg
-Hold Farxiga given FORTINO
-Trend daily weight, I/O, and BMP with diuresis
-Heart failure education after he is extubated
Permanent atrial fibrillation
-Rate controlled
-May need to discontinue digoxin and decrease sotalol given FORTINO, follow
-Oral Anticoagulation: Apixaban 5 mg twice daily
-[id number]: Score at least 3 (Heart failure, HTN, Diabetes Mellitus)
FORTINO on CKD
Hypertension, BP currently at goal, mild cLVH on TTE
Pulmonary hypertension, PASP 86 mmHg on most recent echocardiogram
Kbs-xmevklr-gyhzqbzeb diabetes mellitus, HgbA1c worsening 7.1%
Ventricular fibrillation arrest, status post ICD, on sotalol, followed in our device clinic
Current tobacco smoker, cessation recommended
Data Reviewed
-
EKG: Report Reviewed by me (Atrial fibrillation with rapid ventricular response, lateral T wave abnormality, rate 116)
Radiology: Report Reviewed by me (CXR: Bibasilar airspace disease/pneumonia.)
Medical Tests (Nuc Med, Echo etc): Report Reviewed by me (Echocardiogram as above)
Labs: Labs Reviewed by me
Old Records: Reviewed
[2023-06-12] MEDS: ELIQUIS 5 MG TUBE ×2 (08:07→19:13)
[2023-06-12] MEDS: FOLVITE 1 MG TUBE (08:07)
[2023-06-12] MEDS: ZYLOPRIM 100 MG TUBE (08:07)
[2023-06-12] MEDS: MIRALAX TUBE (08:07)
[2023-06-12] MEDS: THIAMINE INJECTION 200 MG IV ×2 (08:07→19:12)
[2023-06-12 08:25] LABS: B.E. -0.7 mmol/L; HCO3 23.2 mmol/L (21-28); O2 Saturation % 99.5 % (94-98); PCO2 35 mmHg (35-48); PO2 112 mmHg (83-108); pH 7.43 (7.35-7.45)
[2023-06-12 08:26] LABS: Glycohemoglobin (HgbA1c) 7.1 % (4.0-5.6)
[2023-06-12] MEDS: LASIX 60 MG IV (09:11)
[2023-06-12 10:08] LABS: Digoxin 0.5 ng/ml (0.8-2.0)
[2023-06-12 11:05] LABS: TSH 0.65 uIU/ml (0.47-4.68)
[2023-06-12] MEDS: SUBLIMAZE 100 IV (11:43)
[2023-06-12 11:56] LABS: Glucose - Point of Care 175 mg/dl (70-99)
--- NOTE | 2023-06-12 12:00 | PTCARENOTE ---
VSS. Assessment unchanged. Tolerating vent setting. Daughter at bedside.
[2023-06-12] MEDS: NSS (PRESERVATIVE FREE) 10 ML IV (12:36)
[2023-06-12] MEDS: PROTONIX IV 40 MG IV (12:36)
[2023-06-12] MEDS: NOVOLOG FLEXPEN-LOW RESISTANCE 1 UNITS SC ×2 (12:43→17:52)
--- NOTE | 2023-06-12 12:56 | W.PN.INTV ---
Addendum entered and electronically signed by Mahesh Arciniega MD 06/12/23 14:02:
Patient remains critically ill.
See note below.
Original Note:
Documented by User: Cristal Small MD, Resident 06/12/23 13:45
Today's Communication / Plan
Recommendations
Continue mechanical ventilation
Cefepime
Doxycycline
Pantoprazole
Assessment
-
Acute on chronic hypercapnic respiratory failure requiring mechanical ventilation, acute exacerbation of COPD.
ABG 06/11/2023: 7.06, 94/132
Chest x-ray: Bilateral infiltrates.
Increased proBNP
Differential diagnosis includes pneumonia ( has leukocytosis) and/or acute on chronic heart failure with preserved ejection fraction.
HAZEL:01/2023 :Normal left ventricular systolic function. Left ventricular ejection fraction
�is 55%.Mild to moderate mitral regurgitation.Moderate tricuspid regurgitation.
Suspect chronic cor pulmonale due to underlying COPD
Patient failed BiPAP overnight, ABGs without significant improvement, patient is intubated and mechanically ventilated.
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
Dosed on hospital admission 04/2023: Hypercapnic respiratory failure due to COPD exacerbation.
COPD: symbicort. Patient states he is not using it or any BD or O2 at home
FLAVIO: PSG 6 y ago, once, rec CPAP, used only briefly s O2 and could not adapt, ended up returning equipment
AFib on apixaban, metoprolol, sotalol, digoxin
HFrecoveredEF on HAZEL 02-16-23 (EF 45=5% on TTE )
V-fib cardiac arrest, s/p ICD/PM
MReg
HTN
Gout
Arthritis
DM
CKD
Peripheral artery disease, s/p iliac stent
Back surgery
Smoker: 1 ppd for 49 y, down to 7 cig/d for last 2 m
ETOH use: beer, weekly intoxication for 49 y till 3 m ago when quit ETOH
Assessment and plan:
Patient is critically ill, lethargic, with acute severe hypercapnic respiratory failure, acute onset change in mental status.
Current acute decompensation possibly from infectious etiology pneumonia/with increased proBNP heart failure is a possibility on top of his underlying COPD with acute exacerbation.It is noted in the past that the patient has refused oxygen therapy
and has history of medical noncompliance. Notes reviewed from admission in April 2023.
Patient was started on BiPAP initially in the ED, patient became agitated, intermittently obtunded.� Unfortunately, he has failed noninvasive mechanical ventilation.� Relative contraindication to 8 due to poor mental status.
Repeat ABG without significant improvement.� pH continues to be under 7.1.
Plan to pull BiPAP mask off and start him on mechanical ventilation.�
Required 1 dose of Ativan.
Additional Lasix was given, Yung is in place.
Anesthesia called in. Patient was intubated and mechanically ventilated after discussing with the family.
NG tube placed
ABG today pH 7.43, pCO2 35, pO2 112
-Acute exacerbation of COPD:
IV corticosteroids
Inhalers discontinued because of patient's condition.
DuoNeb started
Given bilateral chest x-ray with leukocytosis, started on antibiotics, cefepime and doxycycline. Patient was in the hospital in April, high risk for multidrug-resistant bacteria.
Aspiration precautions
N.p.o. for now.
Cultures were sent we will follow
-Heart failure with preserved ejection fraction. proBNP elevated to 7490. Alternatively, proBNP may be from cor pulmonale as the patient is not compliant with oxygen or BiPAP therapy.
Negative cardiac troponin.
He has bilateral cyanotic feet which per are chronic. Significant lower extremity edema 2-3+.
Lasix 40 mg given in the emergency room. No significant response.
Creatinine is elevated at 2.4, Lasix dose increased to 60 mg IV
May need to repeat echocardiogram at some point.
Continue outpatient cardiac medications.
-Acute kidney injury
Hyperkalemia, got corrected after mechanical ventilation, K today 4.9, creatinine 2.3
Lasix dose increased to 60 mg IV
-History of obstructive sleep apnea: Patient did not tolerate CPAP at home
Family made a decision to proceed with intubation, mechanical ventilation after BiPAP failure
-Permanent atrial fibrillation
� Rate controlled with sotalol 120 mg
�Anticoagulation with apixaban
-Alcohol withdrawal protocol.
-DVT prophylaxis-on apixaban.
N.p.o. for now, high risk of aspiration.
Subjective Dataa
Subjective Data
Date of Service:
Date of Service: June 12, 2023
Review of Systems
General: Unobtainable - Sedation
Objective Data
Data Reviewed
Vital Signs / I&O / Oxygen:
Vital Signs
Temp Pulse Resp BP Pulse Ox
98.0 F 102 18 129/73 95
06/12/23 11:18 06/12/23 11:00 06/12/23 11:00 06/12/23 11:00 06/12/23 12:00
Intake and Output
06/11/23 06/12/23 06/13/23
06:59 06:59 06:59
Intake Total 502 / 502 133 / 133
Output Total 2675 / 2675 635 / 635
Balance -2173 / -2173 -502 / -502
SaO2 [A/C] 95
SaO2 96
Nasal Cannula flow liters per 10
minute
Physical Exam
General: Other (Patient is sedated)
HEENT: Normocephalic and Anicteric
Cardiovascular: S1-S2 and Peripheral Edema
Respiratory: Wheeze and Crackles
Labs/Micro/Reports
Lab Data
06/12/23 01:00
06/12/23 01:00
Laboratory Results
06/11/23 06/11/23 06/11/23
13:15 16:07 16:10
PT 19.4 H
INR 1.66
APTT 39.0 H
pH 7.18 L* 7.05 L*
pCO2 73 H* 103 H*
pO2 92 97
HCO3 27.2 28.5 H
O2 Delivery Level
06/11/23 06/11/23 06/12/23
17:06 19:31 08:13
PT
INR
APTT
pH 7.06 L* 7.29 L 7.43
pCO2 94 H* 52 H 35
pO2 132 H 56 L* 112 H
HCO3 26.6 25.0 23.2
O2 Delivery Level
Microbiology
06/11/23 17:53 Endotracheal Respiratory Culture - Preliminary
06/11/23 17:53 Endotracheal Gram Stain - Preliminary
06/11/23 13:03 Blood/Venous Blood Culture - Preliminary
Streptococcus species
06/11/23 13:03 Blood/Venous Gram Stain - Preliminary
06/12/23 04:54 Nose Nasal Screen MRSA (PCR) - Final
MRSA not detected - performed by PCR methodology.

Documented by User: Mahesh Arciniega MD 06/12/23 13:59
Today's Communication / Plan
Recommendations
Continue mechanical ventilation without change
Spontaneous breathing trial tomorrow if improved
Continue sedation
Cefepime
Doxycycli continue antibiotics
Follow final cultures
Diuresis today
Assessment
-
Acute on chronic hypercapnic respiratory failure requiring mechanical ventilation, acute exacerbation of COPD.
ABG 06/11/2023: 7.06, 94/132
Emergently intubated 06/11/2023
Chest x-ray: Bilateral infiltrates.
Increased proBNP
Differential diagnosis includes pneumonia ( has leukocytosis) and/or acute on chronic heart failure with preserved ejection fraction.
HAZEL:01/2023 :Normal left ventricular systolic function. Left ventricular ejection fraction
�is 55%.Mild to moderate mitral regurgitation.Moderate tricuspid regurgitation.
Suspect chronic cor pulmonale due to underlying COPD
Patient failed BiPAP overnight, ABGs without significant improvement, patient is intubated and mechanically ventilated.
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
Dosed on hospital admission 04/2023: Hypercapnic respiratory failure due to COPD exacerbation.
COPD: symbicort. Patient states he is not using it or any BD or O2 at home
FLAVIO: PSG 6 y ago, once, rec CPAP, used only briefly s O2 and could not adapt, ended up returning equipment
AFib on apixaban, metoprolol, sotalol, digoxin
HFrecoveredEF on HAZEL 02-16-23 (EF 45=5% on TTE )
V-fib cardiac arrest, s/p ICD/PM
MReg
HTN
Gout
Arthritis
DM
CKD
Peripheral artery disease, s/p iliac stent
Back surgery
Smoker: 1 ppd for 49 y, down to 7 cig/d for last 2 m
ETOH use: beer, weekly intoxication for 49 y till 3 m ago when quit ETOH
Assessment and plan:
Patient is critically ill, lethargic, with acute severe hypercapnic respiratory failure, acute onset change in mental status. Required emergent intubation 06/11/2023, does not respond to BiPAP therapy.
Current acute decompensation possibly from infectious etiology pneumonia/with increased proBNP heart failure is a possibility on top of his underlying COPD with acute exacerbation.It is noted in the past that the patient has refused oxygen therapy
and has history of medical noncompliance. Notes reviewed from admission in April 2023.
Patient was started on BiPAP initially in the ED, patient became agitated, intermittently obtunded.� Unfortunately, he has failed noninvasive mechanical ventilation.� Relative contraindication to 8 due to poor mental status.
Repeat ABG without significant improvement.� pH continues to be under 7.1.
Then intubated 06/11/2023.
Responded well to diuresis. Negative fluid balance. Lower extremity edema improving.
-
NG tube placed
ABG today pH 7.43, pCO2 35, pO2 112-mechanical ventilation settings reviewed.
Pulmonary mechanics acceptable, improved.
FiO2 40%
Continue current mechanical ventilation without change
Sedation breaks per protocol
Will maintain RASS 0(-1)
-Acute exacerbation of COPD: Improved bronchospasm.
Continue without change, IV corticosteroids
Inhalers discontinued because of patient's condition.
DuoNeb started
-
Given bilateral chest x-ray with leukocytosis, started on antibiotics, cefepime and doxycycline. Patient was in the hospital in April, high risk for multidrug-resistant bacteria. Vancomycin discontinued, MRSA screen negative.
Aspiration precautions
N.p.o. for now.
Blood culture positive with Streptococcus species.
Sputum culture pending
-
-Heart failure with preserved ejection fraction. proBNP elevated to 7490. Alternatively, proBNP may be from cor pulmonale as the patient is not compliant with oxygen or BiPAP therapy.
Negative cardiac troponin.
He has bilateral cyanotic feet which per are chronic. Significant lower extremity edema 2-3+.
Lasix 40 mg given in the emergency room. No significant response.
Creatinine is elevated at 2.4, Lasix dose increased to 60 mg IV
May need to repeat echocardiogram at some point. Will reassess depending on clinical situation.
Will repeat dose of Lasix today 60 mg.
Continue outpatient cardiac medications.
-Acute kidney injury, improved.
Hyperkalemia, got corrected after mechanical ventilation, K today 4.9, creatinine 2.3
Continue diuresis intermittently. Follow renal function and electrolytes.
-History of obstructive sleep apnea: Patient did not tolerate CPAP at home
Family made a decision to proceed with intubation, mechanical ventilation after BiPAP failure
-Permanent atrial fibrillation
� Rate controlled with sotalol 120 mg
�Anticoagulation with apixaban
Cardiology following the patient.
-? Chronic alcohol use, discussed with patient has not drank in about 3 weeks.
No need for alcohol withdrawal protocol.
-DVT prophylaxis-on apixaban.
N.p.o. for now, high risk of aspiration. Dobbhoff tube in place
Start tube feedings today
-
Subjective Dataa
Subjective Data
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
Subjective:
Patient is sedated, on mechanical ventilation. Critically ill.
Objective Data
Physical Exam
Respiratory: ET Tube (Yellow secretions. No hemoptysis.)
GI: Distended (Obese)
Neurology: Depressed (Sedated, occasionally open eyes on sedation.)
--- NOTE | 2023-06-12 13:08 | PTCARENOTE ---
Patient received in bed, intubated and sedated on Propofol and fentanyl. Bilateral wrist restraints maintained. Afib on monitor, afebrile, blood pressure as documented. Bilateral PT/DP present by doppler, +3 bilateral lewer extremity edema. #8
ETT at 23 cm at the left lip, tolerating vent settings A/C18/500/5/40%, lungs coarse bilaterally with scattered wheeze, pulse ox 95%. Suctioned for large amount of yellow bloody sputum. DHT in right nare, abdomen round with hypoactive bowel
sounds. Thermister dias draining large amounts of urine. Foam dressings on sacrum, heels, and left arm. #20 g in right forearm with Propofol/fentanyl gtt infusing. #18 g in left arm KVO. Turned and repositioned
--- NOTE | 2023-06-12 16:30 | PTCARENOTE ---
Echo performed at bedside as ordered. Afib continues. Sedation gtts unchanged this shift with RASS -2.
--- NOTE | 2023-06-12 16:47 | W.PN.HOSP.TC ---
Today's Communication/Plan
-
Ventilatory support
Continue sedation
IV diuresis.
IV antibiotics
IV corticosteroids
Total Critical Care Time_45____ minutes. I was immediately available to the patient and staff. I personally examined, reviewed labs, diagnostic images/reports, interpretations, treatment plans, discussed patient care with other providers and
family or caregivers (if patient is unable to make decisions), entered orders as appropriate and documented the medical record.
Assessment / Plan
Assessment / Plan
IMPRESSION:
Acute hypoxic/hypercapnic respiratory failure.
VDRF
� Intubated on 06/10
Severe respiratory acidosis
Bilateral infiltrates
COPD exacerbation
Acute CHF preserved EF
FORTINO
Hyperkalemia
TME secondary to CO2 retention
Conditions prior to admission:
COPD
Obstructive sleep apnea intolerant to CPAP
CHF preserved/recovered EF: HAZEL 02/22 LVEF of 55% and severe pulmonary hypertension
V-fib status post AICD
Essential hypertension
Gout
Diabetes by history not on medications at home.
CKD stage IIIa-b
Ongoing tobacco smoker.
Alcohol use disorder
PLAN:
Acute hypoxic/hypercarbic respiratory failure.
Presents with hypoxia and pulse ox of 74% on room air.
Exam with +3 pitting edema to lower extremities
Elevated pro CHF BNP
Leukocytosis
ABG consistent with severe respiratory acidosis and hypoxia
Chest x-ray with bilateral infiltrate
Differential diagnosis for above likely multifactorial suspected decompensated CHF preserved EF also with severe pulmonary hypertension, COPD exacerbation, possible and less likely bilateral pneumonia.
Failed attempt of BiPAP with persistent respiratory acidosis and required intubation
� Intubated on 06/10
Nutrition. NG tube in place.
Hold oral medications converted via NG tube
Acute on chronic CHF preserved EF/pulmonary hypertension.
Preadmission regimen including metoprolol, Farxiga, furosemide 3 times a week, questionable compliance
Continue daily weight.
Continue IV diuresis
Acute kidney
Suspect prerenal
Monitor creatinine while on IV Lasix
Yung catheter in place since 06/10
COPD suspect exacerbation with decompensated respiratory failure.
Continue short acting bronchodilators,
Blood culture with strep species pending final notification
empiric antibiotics: Cefepime/doxycycline. Initially dose vancomycin discontinued.
corticosteroids
Permanent atrial fibrillation
History of V-fib status post AICD PPM.
Continue metoprolol, sotalol, digoxin
Check digoxin level
Continue anticoagulation with Eliquis
Gout
Continue allopurinol.
Alcohol use disorder.
High risk for DT
Start MSAS protocol
Thiamine
Ongoing tobacco use disorder
Extensively counseled about quitting
Full code
DVT prophylaxis/Eliquis
Anticipated Discharge: > 48 hours
Subjective/Interval History
-
Date of Service: June 12, 2023
Objective Data
-
Labs:
Laboratory Results
06/12/23
08:13
HCO3 23.2
Vital Signs:
Vital Signs
Temp Pulse Resp BP Pulse Ox
97.5 F 89 18 109/72 95
06/12/23 15:36 06/12/23 16:00 06/12/23 16:00 06/12/23 16:00 06/12/23 16:00
I&O
06/11/23 06/12/23 06/13/23
06:59 06:59 06:59
Intake Total 502 / 502 401 / 401
Output Total 2675 / 2675 1505 / 1505
Balance -2173 / -2173 -1104 / -1104
Physical Exam
-
General: Well Developed and No Apparent Distress
HEENT: Normocephalic, Atraumatic, Moist Mucous Membranes and Other (ET tube with clear secretions)
Respiratory: Clear to Auscultation
Cardiac: Regular Rhythm and S1/S2; Negative Murmur, Rub or Gallop
GI: Soft, Nontender, Nondistended, Normal Bowel Sounds and Other (NG tube in place); Negative Organomegaly
Rectal: Deferred by Provider
Genito-urinary: Yung
Musculoskeletal: No Clubbing, No Cyanosis and No Edema
Skin: Negative Rash
Neuro: Nonfocal/Grossly Intact
--- NOTE | 2023-06-12 16:48 | CM ---
CM following re: d/c planning
Chart reviewed
CM spoke with the patient's daughter at bedside; IA completed
Pt is currently intubated & on mechanical ventilation
Per the patient's daughter, she, the patient and her mom all reside in a 2SH with no MIKEY and full flight to 2nd floor
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
Pt does confirm prescription coverage and rx's are filled at [facility] on [address] [place]
Pt PCP-Maycol Dhaliwal
CM addressed consult for ETOH use and at this time the patient unable to respond; however patient's daughter does not agree with ETOH abuse/use claim
At this time d/c plan is undetermined
CM will continue to follow patient's progress and assist with needs at d/c as indicated
PLAN; CM following for needs
[2023-06-12] MEDS: SUBLIMAZE 50 MCG IV ×2 (17:42→22:26)
[2023-06-12] MEDS: BETAPACE 120 MG TUBE (17:44)
[2023-06-12] MEDS: VIBRAMYCIN 100 MG TUBE (17:44)
[2023-06-12 17:49] LABS: Glucose - Point of Care 195 mg/dl (70-99)
--- NOTE | 2023-06-12 20:00 | PTCARENOTE ---
Patient received in bed, intubated and sedated on Propofol and Fentanyl gtts. Bilateral wrist restraints maintained. Afib on monitor, afebrile, blood pressure as documented. Bilateral PTs present by doppler, +3 edema noted. #8 ETT at 23 cm at the
center, tolerating A/C 18 TV 500 FIO2 40% Peep 5, lungs coarse with I/e wheezing bilaterally, pulse ox 98%. DHT in right nare with Jevity 1.5 infusing at 40 ml.hr withn25 ml.hr water flush. abdomen round with hypoactive bowel sounds. Thermister
dias draining yellow urine. Foam dressings on left arm and sacrum. #20 g in right forearm with Propofol and Fentanyl gtts infusing as documented, #18 g in left forearm flushed and patent. turned and repositioned
[2023-06-12 23:43] LABS: Glucose - Point of Care 256 mg/dl (70-99)
[2023-06-13] VITALS (25 sets, daily range): BP systolic 85–157; BP diastolic 19–87; BMI 27.0
[2023-06-13] MEDS: MAXIPIME 2000 MG IV (00:05)
[2023-06-13] MEDS: STERILE WATER FOR INJECTION 10 ML IV ×2 (00:05→11:59)
[2023-06-13] MEDS: NOVOLOG FLEXPEN-MODERATE RESISTANCE 5 UNITS SC ×2 (00:05→05:18)
--- NOTE | 2023-06-13 00:12 | PTCARENOTE ---
Patient reassessed, intermittently restless and agitated, no other changes in assessment. Turned and repositioned
[2023-06-13] MEDS: SUBLIMAZE 50 MCG IV (00:36)
[2023-06-13] MEDS: DIPRIVAN 100 IV ×4 (00:55→23:43)
[2023-06-13] MEDS: DUONEB 3 ML INH ×5 (00:59→19:42)
[2023-06-13 04:22] LABS: % Basophils 0.1 % (0-2); % Immature Granulocytes 0.9 % (0-0.5); % Monocytes 4.4 % (1.7-9.3); % Neutrophils 91.6 % (42.2-75.2); Absolute Immature Granulocytes 0.1 10^3/uL (0-0.05); Absolute Lymphocytes 0.3 10^3/uL (1.2-3.4); Absolute Monocytes 0.5 10^3/uL (0.1-0.6); Absolute Neutrophils 9.7 10^3/uL (1.4-6.5); Hematocrit 36.1 % (39.0-52.0); Hemoglobin 11.5 g/dL (13.0-18.0); Mean Corp Hgb Conc. 31.9 g/dL (33.0-37.0); Mean Corpuscular Hgb 26.7 pg (27.0-31.0); Mean Platelet Volume 9.8 fL (7.4-10.4); Nucleated Red Blood Cells % 0.6 % (-); Platelet Count 212 10^3/uL (130-400); White Blood Cell Count 10.6 10^3/uL (4.8-10.8)
--- NOTE | 2023-06-13 04:38 | SUR.PHASEI ---
Patient given CHG bath, linens changed. Turned and repositioned
[2023-06-13 04:39] LABS: HCO3 25.5 mmol/L (21-28); O2 Saturation % 99.1 % (94-98); PCO2 35 mmHg (35-48); PO2 104 mmHg (83-108); pH 7.47 (7.35-7.45)
[2023-06-13 04:41] LABS: O2 Therapy 95% on ventilator
[2023-06-13 05:10] LABS: Blood Urea Nitrogen 109 mg/dl (9-20); Calcium 8.5 mg/dl (8.4-10.2); Carbon Dioxide 25 mmol/L (22-30); Chloride 102 mmol/L (98-107); Estimated Creatinine Clearance 34 ml/min; Glucose 271 mg/dl (70-99); Potassium 4.5 mmol/L (3.5-5.1); Sodium 136 mmol/L (135-145); eGFR 29.39
[2023-06-13] MEDS: SUBLIMAZE 100 IV ×2 (05:10→19:54)
[2023-06-13] MEDS: DECADRON 4 MG IV ×3 (05:18→21:48)
[2023-06-13] MEDS: VIBRAMYCIN 100 MG TUBE ×2 (05:24→18:30)
[2023-06-13 07:51] LABS: Triglycerides 242 mg/dl (10-149)
[2023-06-13] MEDS: FOLVITE 1 MG TUBE (07:52)
[2023-06-13] MEDS: THIAMINE INJECTION 200 MG IV ×2 (07:53→19:17)
[2023-06-13] MEDS: ELIQUIS 5 MG TUBE ×2 (07:53→19:18)
[2023-06-13] MEDS: NSS (PRESERVATIVE FREE) 10 ML IV (07:53)
[2023-06-13] MEDS: PROTONIX IV 40 MG IV (07:53)
[2023-06-13] MEDS: ZYLOPRIM 100 MG TUBE (07:53)
[2023-06-13] MEDS: MIRALAX 17 GRAMS TUBE (07:54)
[2023-06-13] MEDS: LOPRESSOR 25 MG TUBE ×2 (09:25→21:48)
[2023-06-13] MEDS: NOVOLIN N vial 0.100000000000000006 UNITS SC (09:26)
[2023-06-13 09:40] LABS: Glucose - Point of Care 342 mg/dl (70-99)
--- NOTE | 2023-06-13 11:03 | W.PN.CD ---
Today's Communication / Plan
-
Positive blood culture => Strep in pairs
- Agree with f/u as if it does not clear we may need HAZEL and consideration for ICD removal
Will place Sotalol on hold for severe FORTINO on CKD but will plan to resume (VF recurred and has not recurred since on sotalol)
Holding Farxiga given FORTINO
No diuretic today
Impression / Plan
-
Acute hypoxic respiratory failure, severe, requiring intubation
- Multifactorial in the setting of COPD and HFpEF, consider cor pulmonale
- Seems mostly of pulmonary etiology, not much acute HF
Positive blood culture => Strep in pairs
- Can be important in light of ICD
Ventricular fibrillation arrest, status post ICD, on sotalol, followed in our device clinic
- Will place Sotalol on hold for severe FORTINO on CKD but will plan to resume (VF recurred and has not recurred since on sotalol)
COPD, acute exacerbation, per pulmonary
HFpEF, acute on chronic
- Now off diuresis => typically on low dose diuretic
- Holding Farxiga given FORTINO
- Trend daily weight, I/O, and BMP with diuresis
- Heart failure education after he is extubated
Permanent atrial fibrillation
- Rate controlled
- May need to discontinue digoxin and decrease sotalol given FORTINO, follow
- Oral Anticoagulation: Apixaban 5 mg twice daily
- [id number]: Score at least 3 (Heart failure, HTN, Diabetes Mellitus)
FORTINO on CKD
- Severe
Hypertension, BP currently at goal, mild cLVH on TTE
Pulmonary hypertension, PASP 86 mmHg on most recent echocardiogram
Gji-nstxonv-yosvvzfqc diabetes mellitus, HgbA1c worsening 7.1%
Current tobacco smoker, cessation important
Subjective:
Intubated and sedated
Physical Exam
Vital Signs/Labs
Vital Signs
Temp Pulse Resp BP Pulse Ox
98.6 F 126 18 115/79 93
06/13/23 07:41 06/13/23 09:25 06/13/23 08:00 06/13/23 09:25 06/13/23 08:00
06/12/23 06/13/23 06/14/23
06:59 06:59 06:59
Actual Weight 90.9 kg 90.3 kg
06/13/23 03:59
06/13/23 03:59
PT 19.4 Sec (11.4-14.6) H 06/11/23 16:10
INR 1.66 06/11/23 16:10
APTT 39.0 Sec (23.4-35.0) H 06/11/23 16:10
Magnesium 2.1 mg/dl (1.6-2.3) 06/12/23 01:00
Triglycerides Cancelled 06/13/23 04:38
TSH 0.65 uIU/ml (0.47-4.68) 06/12/23 01:00
Digoxin 0.5 ng/ml (0.8-2.0) L 06/12/23 01:00
06/11/23
11:56
Kfb-P-Bohzkzajgrk Pept 7490
LAB Results
06/11/23
11:56
Troponin I 0.020
Physical Exam
Constitutional: Comfortable
Cardiovascular: Rhythm/rate is irregular, Pedal edema present (mild) and S1S2 is normal
Respiratory: Wheeze Present and Rhonchi Present
GI: Soft and Distention absent
Data Reviewed
-
Date of Service: June 13, 2023
[2023-06-13] MEDS: LANOXIN 125 MCG PO (11:59)
[2023-06-13] MEDS: ROCEPHIN 1000 MG IV (11:59)
[2023-06-13] MEDS: NOVOLOG FLEXPEN-HIGH RESISTANCE 15 UNITS SC (12:00)
[2023-06-13] MEDS: NOVOLOG FLEXPEN 5 UNITS SC ×3 (12:00→23:48)
[2023-06-13 12:09] LABS: Glucose - Point of Care 347 mg/dl (70-99)
--- NOTE | 2023-06-13 12:12 | W.PN.INTV ---
Addendum entered and electronically signed by Mahesh Arciniega MD 06/13/23 13:32:
See addendum.
Original Note:
Documented by User: Cristal Small MD, Resident 06/13/23 12:37
Today's Communication / Plan
Recommendations
Spontaneous breathing trial today
No Lasix today
NPH insulin if sugars greater than 180
Antibiotics changed to ceftriaxone
Taper corticosteroids tomorrow
Assessment
-
Acute on chronic hypercapnic respiratory failure requiring mechanical ventilation, acute exacerbation of COPD.
ABG 06/11/2023: 7.06, 94/132
Emergently intubated 06/11/2023
Chest x-ray: Bilateral infiltrates.
Increased proBNP
Differential diagnosis includes pneumonia ( has leukocytosis) and/or acute on chronic heart failure with preserved ejection fraction.
HAZEL:01/2023 :Normal left ventricular systolic function. Left ventricular ejection fraction
�is 55%.Mild to moderate mitral regurgitation.Moderate tricuspid regurgitation.
Suspect chronic cor pulmonale due to underlying COPD
Patient failed BiPAP overnight, ABGs without significant improvement, patient is intubated and mechanically ventilated.
Conditions REMELTER:
Dosed on hospital admission 04/2023: Hypercapnic respiratory failure due to COPD exacerbation.
COPD: symbicort. Patient states he is not using it or any BD or O2 at home
FLAVIO: PSG 6 y ago, once, rec CPAP, used only briefly s O2 and could not adapt, ended up returning equipment
AFib on apixaban, metoprolol, sotalol, digoxin
HFrecoveredEF on HAZEL 02-16-23 (EF 45=5% on TTE )
V-fib cardiac arrest, s/p ICD/PM
MReg
HTN
Gout
Arthritis
DM
CKD
Peripheral artery disease, s/p iliac stent
Back surgery
Smoker: 1 ppd for 49 y, down to 7 cig/d for last 2 m
ETOH use: beer, weekly intoxication for 49 y till 3 m ago when quit ETOH
Assessment and plan:
Patient is critically ill, lethargic, with acute severe hypercapnic respiratory failure, acute onset change in mental status. Required emergent intubation 06/11/2023, does not respond to BiPAP therapy.
Spontaneous breathing trial today.
Current acute decompensation possibly from infectious etiology pneumonia/with increased proBNP heart failure is a possibility on top of his underlying COPD with acute exacerbation.It is noted in the past that the patient has refused oxygen therapy
and has history of medical noncompliance. Notes reviewed from admission in April 2023.
Patient was started on BiPAP initially in the ED, patient became agitated, intermittently obtunded.� Unfortunately, he has failed noninvasive mechanical ventilation.� Relative contraindication to 8 due to poor mental status.
Repeat ABG without significant improvement.� pH continues to be under 7.1.
Then intubated 06/11/2023.
Responded well to diuresis. Negative fluid balance. Lower extremity edema improving.
Patient no longer on dialysis
NG tube placed
ABG today pH 7.47, pCO2 35, pO2 104-mechanical ventilation settings reviewed.
Pulmonary mechanics acceptable, improved.
FiO2 40%
Spontaneous breathing trial today
Will maintain RASS 0(-1)
-Acute exacerbation of COPD: Improved bronchospasm.
Continue IV corticosteroids, taper them from tomorrow.
Inhalers discontinued because of patient's condition.
DuoNeb started
-
Given bilateral chest x-ray with leukocytosis, started on antibiotics, cefepime and doxycycline. Patient was in the hospital in April, high risk for multidrug-resistant bacteria. Vancomycin discontinued, MRSA screen negative.
Aspiration precautions
NG tube feeding
Blood culture positive with Streptococcus species.
Antibiotic changed to ceftriaxone.
-Heart failure with preserved ejection fraction. proBNP elevated to 7490. Alternatively, proBNP may be from cor pulmonale as the patient is not compliant with oxygen or BiPAP therapy.
Negative cardiac troponin.
He has bilateral cyanotic feet which per are chronic. Significant lower extremity edema 2-3+.
Lasix 40 mg given in the emergency room. No significant response.
Creatinine is elevated at 2.4, Lasix dose increased to 60 mg IV
May need to repeat echocardiogram at some point. Will reassess depending on clinical situation.
Sotalol, Farxiga on hold due to FORTINO
No Lasix today
Trend daily weight, I/O
-Acute kidney injury, improved.
Hyperkalemia, got corrected after mechanical ventilation, K today 4.9, creatinine 2.3
Continue diuresis intermittently. Follow renal function and electrolytes.
-History of obstructive sleep apnea: Patient did not tolerate CPAP at home
Family made a decision to proceed with intubation, mechanical ventilation after BiPAP failure
-Elevated blood sugars 256
NPH insulin if sugars greater than 180
-Permanent atrial fibrillation
Sotalol on hold due to FORTINO
Anticoagulation with apixaban
Cardiology following the patient.
-DVT prophylaxis-on apixaban.
NG tube feeding
Subjective Dataa
Subjective Data
Date of Service:
Date of Service: June 13, 2023
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
Objective Data
Data Reviewed
Vital Signs / I&O / Oxygen:
Vital Signs
Temp Pulse Resp BP Pulse Ox
98.5 F 105 12 112/68 93
06/13/23 11:59 06/13/23 11:59 06/13/23 11:52 06/13/23 11:00 06/13/23 11:52
Intake and Output
06/12/23 06/13/23 06/14/23
06:59 06:59 06:59
Intake Total 502 / 502 1678.8 / 1773.9 447.3 / 447.3
Output Total 2675 / 2675 2715 / 2715 400 / 400
Balance -2173 / -2173 -1036.2 / -941.1 47.3 / 47.3
SaO2 [A/C] 93
SaO2 93
Nasal Cannula flow liters per 10
minute
Physical Exam
General: Other (Patient is sedated)
HEENT: Normocephalic and Anicteric
Cardiovascular: S1-S2, Irregular Rhythm and Peripheral Edema
Respiratory: Wheeze, Crackles and ET Tube (Yellow secretions. No hemoptysis.)
GI: Soft and Distended (Obese)
Neurology: Other (Sedated )
Skin: Warm and Dry
Labs/Micro/Reports
Lab Data
06/13/23 03:59
06/13/23 03:59
Laboratory Results
06/13/23
04:29
pH 7.47 H
pCO2 35
pO2 104
HCO3 25.5
O2 Delivery Level 95% on ventilator
Microbiology
06/11/23 13:03 Blood/Venous Blood Culture - Preliminary
Streptococcus species
Additional testing on request
06/11/23 13:03 Blood/Venous Gram Stain - Preliminary
06/11/23 13:03 Blood/Venous Blood Culture - Preliminary
No Growth in 24 hours- Final report to follow
06/11/23 17:53 Endotracheal Respiratory Culture - Preliminary
06/11/23 17:53 Endotracheal Gram Stain - Preliminary
06/12/23 04:54 Nose Nasal Screen MRSA (PCR) - Final
MRSA not detected - performed by PCR methodology.

Documented by User: Mahesh Arciniega MD 06/13/23 13:28
Today's Communication / Plan
Recommendations
Spontaneous breathing trial today
No Lasix today
NPH insulin if sugars greater than 180
Antibiotics changed to ceftriaxone
Taper corticosteroids tomorrow
Repeat blood cultures
Assessment
-
Acute on chronic hypercapnic respiratory failure requiring mechanical ventilation, acute exacerbation of COPD.
ABG 06/11/2023: 7.06, 94/132
Emergently intubated 06/11/2023
Chest x-ray: Bilateral infiltrates.
Increased proBNP
Differential diagnosis includes pneumonia ( has leukocytosis) and/or acute on chronic heart failure with preserved ejection fraction.
HAZEL:01/2023 :Normal left ventricular systolic function. Left ventricular ejection fraction
�is 55%.Mild to moderate mitral regurgitation.Moderate tricuspid regurgitation.
Suspect chronic cor pulmonale due to underlying COPD
Patient failed BiPAP overnight, ABGs without significant improvement, patient is intubated and mechanically ventilated.
Conditions REMELTER:
Dosed on hospital admission 04/2023: Hypercapnic respiratory failure due to COPD exacerbation.
COPD: symbicort. Patient states he is not using it or any BD or O2 at home
FLAVIO: PSG 6 y ago, once, rec CPAP, used only briefly s O2 and could not adapt, ended up returning equipment
AFib on apixaban, metoprolol, sotalol, digoxin
HFrecoveredEF on HAZEL 02-16-23 (EF 45=5% on TTE )
V-fib cardiac arrest, s/p ICD/PM
MReg
HTN
Gout
Arthritis
DM
CKD
Peripheral artery disease, s/p iliac stent
Back surgery
Smoker: 1 ppd for 49 y, down to 7 cig/d for last 2 m
ETOH use: beer, weekly intoxication for 49 y till 3 m ago when quit ETOH
Assessment and plan:
Patient is critically ill, lethargic, with acute severe hypercapnic respiratory failure, acute onset change in mental status. Required emergent intubation 06/11/2023, does not respond to BiPAP therapy.
Spontaneous breathing trial today.
Current acute decompensation possibly from infectious etiology pneumonia/with increased proBNP heart failure is a possibility on top of his underlying COPD with acute exacerbation.It is noted in the past that the patient has refused oxygen therapy
and has history of medical noncompliance. Notes reviewed from admission in April 2023.
Patient was started on BiPAP initially in the ED, patient became agitated, intermittently obtunded.� Unfortunately, he has failed noninvasive mechanical ventilation.� Relative contraindication to 8 due to poor mental status.
Then intubated 06/11/2023.
Responded well to diuresis. Negative fluid balance. Lower extremity edema improving.
Diuresis on hold, increased creatinine. Fluid balance has been negative for about 48 hours per
ABG today pH 7.47, pCO2 35, pO2 104-mechanical ventilation settings reviewed.
Pulmonary mechanics acceptable, improved.
FiO2 40%
Respiratory rate adjusted.
Spontaneous breathing trial today
Will maintain RASS 0(-1)
-Acute exacerbation of COPD: Improved bronchospasm.
Continue IV corticosteroids, taper them from tomorrow.
Inhalers discontinued because of patient's condition.
DuoNeb continue for now
-
Given bilateral chest x-ray with leukocytosis, started on antibiotics, cefepime and doxycycline. Patient was in the hospital in April, high risk for multidrug-resistant bacteria. Vancomycin discontinued, MRSA screen negative.
Aspiration precautions
NG tube feeding
Blood culture positive with Streptococcus species.
Repeat blood cultures
Antibiotic changed to ceftriaxone.
-Heart failure with preserved ejection fraction. proBNP elevated to 7490. Alternatively, proBNP may be from cor pulmonale as the patient is not compliant with oxygen or BiPAP therapy.
Negative cardiac troponin.
He has bilateral cyanotic feet which per are chronic. Significant lower extremity edema 2-3+.
Status post diuresis, hold for now due to increased creatinine. Lower extremity edema improved.
Echocardiogram noted. Pulmonary hypertension has improved. Slightly decreased LVEF.
Sotalol, Farxiga on hold due to FORTINO
No Lasix today
Trend daily weight, I/O
-Acute kidney injury, improved.
Hyperkalemia resolved.
Intermittent diuresis. Hold for now.
Follow BMP.
-History of obstructive sleep apnea: Patient did not tolerate CPAP at home
Family made a decision to proceed with intubation, mechanical ventilation after BiPAP failure
-Elevated blood sugars 256
NPH insulin if sugars greater than 180
Is on a sliding scale high resistance.
May need insulin drip.
-Permanent atrial fibrillation
Sotalol on hold due to FORTINO
Anticoagulation with apixaban
Cardiology following the patient.
-DVT prophylaxis-on apixaban.
NG tube feeding-tolerating.
Critical care statement: A total of 38 minutes of critical care time was provided for this patient today. This includes management of unstable vital signs, evaluation of the patient at bedside, reviewing the patient's pertinent medical records
including ventilator settings, arterial blood gases, radiographs, microbiology, laboratory evaluations and discussion with primary team, critical care nursing, and respiratory therapy.
[2023-06-13 13:01] LABS: B.E. 0.8 mmol/L; HCO3 27.8 mmol/L (21-28); O2 Saturation % 98.5 % (94-98); PCO2 54 mmHg (35-48); PO2 106 mmHg (83-108); pH 7.32 (7.35-7.45)
--- NOTE | 2023-06-13 14:09 | W.PN.HOSP.TC ---
Today's Communication/Plan
-
Wean off sedation with trial of spontaneous breathing.
Hold further Lasix
Antibiotics
Repeat blood cultures
Continue nutrition.
Continue NG tube medications including anticoagulation.
Basal bolus insulin
Total Critical Care Time__55___ minutes. I was immediately available to the patient and staff. I personally examined, reviewed labs, diagnostic images/reports, interpretations, treatment plans, discussed patient care with other providers and
family or caregivers (if patient is unable to make decisions), entered orders as appropriate and documented the medical record.
Assessment / Plan
Assessment / Plan
IMPRESSION:
Acute hypoxic/hypercapnic respiratory failure.
VDRF
� Intubated on 06/10
Severe respiratory acidosis
Bilateral infiltrates
COPD exacerbation
Acute CHF preserved EF
FORTINO
Hyperkalemia
TME secondary to CO2 retention
Conditions prior to admission:
COPD
Obstructive sleep apnea intolerant to CPAP
CHF preserved/recovered EF: HAZEL 02/22 LVEF of 55% and severe pulmonary hypertension
V-fib status post AICD
Essential hypertension
Gout
Diabetes by history not on medications at home.
CKD stage IIIa-b
Ongoing tobacco smoker.
Alcohol use disorder
PLAN:
Acute hypoxic/hypercarbic respiratory failure.
Presents with hypoxia and pulse ox of 74% on room air.
Exam with +3 pitting edema to lower extremities
Elevated pro CHF BNP
Leukocytosis
ABG consistent with severe respiratory acidosis and hypoxia
Chest x-ray with bilateral infiltrate
Differential diagnosis for above likely multifactorial suspected decompensated CHF preserved EF also with severe pulmonary hypertension, COPD exacerbation, possible and less likely bilateral pneumonia.
Failed attempt of BiPAP with persistent respiratory acidosis and required intubation
� Intubated on 06/10
Attempt to wean off sedation with SBT on 06/12
Nutrition. NG tube in place.
Hold oral medications converted via NG tube
Acute on chronic CHF preserved EF/pulmonary hypertension.
Updated echocardiogram 06/11: LVEF 40-50%, mild diffuse hypokinesis, mild MR, pulmonary pressure 37 mmHg
Preadmission regimen including metoprolol, Farxiga, furosemide 3 times a week, questionable compliance
IV Lasix provided on 06/10 - 06/11.
Noted elevated BUN and rising creatinine
Hold further diuresis monitoring volume status closely
ID:
Bilateral infiltrates with concern for multifocal pneumonia versus pulmonary edema
Streptococcal bacteremia.
Antibiotics consolidated to ceftriaxone.
Echo unremarkable.
Repeat blood culture for clearance
ID consultation
Acute kidney
Suspect prerenal
Monitor creatinine while on IV Lasix
Noted worsening acidemia 109
Yung catheter in place since 06/10
COPD suspect exacerbation with decompensated respiratory failure.
Continue short acting bronchodilators,
Continue corticosteroids
Permanent atrial fibrillation
History of V-fib status post AICD PPM.
Home regimen: Metoprolol, sotalol, digoxin
Check digoxin level
Continue anticoagulation with Eliquis
Gout
Continue allopurinol.
Alcohol use disorder.
High risk for DT
Start MSAS protocol
Thiamine
Ongoing tobacco use disorder
Extensively counseled about quitting
Full code
DVT prophylaxis/Eliquis
Anticipated Discharge: > 48 hours
Subjective/Interval History
-
Date of Service: June 13, 2023
Objective Data
-
Labs:
Laboratory Results
06/13/23 06/13/23 06/13/23
03:59 04:29 12:42
WBC 10.6
Hgb 11.5 L
Hct 36.1 L
Plt Count 212
HCO3 25.5 27.8
Sodium 136
Potassium 4.5
Chloride 102
Carbon Dioxide 25
BUN 109 H*
Creatinine 2.4 H
Glucose 271 H
Calcium 8.5
Vital Signs:
Vital Signs
Temp Pulse Resp BP Pulse Ox
98.5 F 115 16 151/87 92
06/13/23 11:59 06/13/23 13:00 06/13/23 13:00 06/13/23 13:00 06/13/23 13:20
I&O
06/12/23 06/13/23 06/14/23
06:59 06:59 06:59
Intake Total 502 / 502 1678.8 / 1773.9 588.0 / 588.0
Output Total 2675 / 2675 2715 / 2715 550 / 550
Balance -2173 / -2173 -1036.2 / -941.1 38.0 / 38.0
Physical Exam
-
General: Well Developed and No Apparent Distress
HEENT: Normocephalic, Atraumatic and Moist Mucous Membranes
Respiratory: Clear to Auscultation
Cardiac: Regular Rhythm and S1/S2; Negative Murmur, Rub or Gallop
GI: Soft, Nontender, Nondistended and Normal Bowel Sounds; Negative Organomegaly
Rectal: Deferred by Provider
Musculoskeletal: No Clubbing, No Cyanosis and No Edema
Skin: Negative Rash
Neuro: Nonfocal/Grossly Intact
--- NOTE | 2023-06-13 14:17 | CON.ID ---
Consultation
-
Date/Time Consultation Requested: 06/13/2023, 1108
Date/Time Consultation Performed: 06/13/2023, 1420
Requesting Provider: Dr. Henri Pope
Performing Provider: Dr. Frannie Arreola
Reason for Consultation: Strep bacteremia 1/2
Chief Complaint / Past History
Chief Complaint
Short of breath
History of Present Illness
History obtained from review of medical records since patient currently intubated and unable to provide any history. He is a 62 year old male smoker, with DM, COPD, HFpEF, Afib, FLAVIO noncompliant with CPAP, CKD3 who presented to ED on 06/11/23 c/o
worsening SOB x 1 week. O2 sat in 70's. ABG showed hypercapnia and resp acidosis. 06/11/23 BIPAP converted to intubation due to decreased in mental status. CXR showed bilateral opacities. Bcx 1 of 2 sets Streptococcus species.
Past History
Additional Past Medical History:
DM
COPD
Permanent Afib
hx V-fib cardiac arrest
HFpEF
AICD
Sleep apnea, intolerant to CPAP
gout
CKD3
PAD
Allergy History:
Penicillins Allergy (Verified 06/11/23 11:38)
childhood
Medications Reviewed: Yes
Current Antibiotics:
Cefepime (06/10 to 06/11)
ceftriaxone D1
doxycycline d 3
Social History
Tobacco: Smoker
Alcohol: Binge Drinker
Drug: None
Personal:
Family History
Family History: Not Pertinent
Review of Systems
Review of Systems
Unable to obtain, pt on mechanical ventilation.
Vital Signs
Temp Pulse Resp BP Pulse Ox
98.5 F 115 16 151/87 92
06/13/23 11:59 06/13/23 13:00 06/13/23 13:00 06/13/23 13:00 06/13/23 13:20
Physical Exam
Physical Exam
Constitutional: Acutely Ill
Eyes: Sclera Anicteric
Cardiovascular: Irregular Rate and Other (tachycardic)
Pulmonary: Wheezes (Expiratory wheeze, anterior chest)
Gastrointestinal: Soft, Non Tender, Non Distended and Normal Bowel Sounds
Genito-Urinary: Yung and Clear Urine
Extremities: Edema (BLE 1 to 2+)
Lab / Diagnostic Study Results
06/13/23 03:59
06/13/23 03:59
Abs Immat Gran (auto) 0.1 10^3/uL (0-0.05) H 06/13/23 03:59
Absolute Neuts (auto) 9.7 10^3/uL (1.4-6.5) H 06/13/23 03:59
Absolute Lymphs (auto) 0.3 10^3/uL (1.2-3.4) L 06/13/23 03:59
Absolute Monos (auto) 0.5 10^3/uL (0.1-0.6) 06/13/23 03:59
Absolute Basos (auto) 0.0 10^3/uL (0-0.2) 06/13/23 03:59
Immature Gran % 0.9 % (0-0.5) H 06/13/23 03:59
Neutrophils % 91.6 % (42.2-75.2) H 06/13/23 03:59
Lymphocytes % 3.0 % (20.5-51.1) L 06/13/23 03:59
Monocytes % 4.4 % (1.7-9.3) 06/13/23 03:59
Eosinophils % 0.0 % (0-6) 06/13/23 03:59
Basophils % 0.1 % (0-2) 06/13/23 03:59
PT 19.4 Sec (11.4-14.6) H 06/11/23 16:10
INR 1.66 06/11/23 16:10
Lactic Acid Cancelled 06/11/23 16:45
Urine WBC 0-2 /HPF (0-5) 06/11/23 17:08
Microbiology Results
Micro:
06/11/23 13:03 Blood Culture - Preliminary
Blood/Venous No Growth in 48 hours- Final report to follow
06/11/23 17:53 Respiratory Culture - Final
Endotracheal Haemophilus influenzae
Gram Stain - Final
06/13/23 11:51 Blood Culture - Pending
Blood/Venous
06/13/23 11:22 Blood Culture - Pending
Blood/Venous
06/11/23 13:03 Blood Culture - Preliminary
Blood/Venous Streptococcus species
Additional testing on request
Gram Stain - Preliminary
06/12/23 04:54 Nasal Screen MRSA (PCR) - Final
Nose MRSA not detected - performed by PCR methodology.
06/11/23 CXR: Bibasilar airspace opacities are remonstrated.
06/11/23 CXR: Moderate to severe bibasilar airspace disease (right worse than left), progressed from prior.
06/12/23 CXR: Moderate right basilar parenchymal airspace disease/pneumonia, improved but unresolved.�
Assessment / Plan
# CAP
- Sputum cx Haemophilus influenzae, beta-lactamase neg
- Agree with ceftriaxone (d3 abx) to complete 7d course.
# Strep species bacteremia, 1 out of 4 bottles
- Likely contaminant
- Follow repeat blood cx.
- No need to treat at this time.
# AECOPD
- on steroid
- on doxycycline
# Acute on chronic hypoxemic/hypercapnic resp failure
- Weaning from vent
# Tobacco use disorder
--- NOTE | 2023-06-13 14:57 | PTCARENOTE ---
Patient received in AM with assessment as noted. Continues intubated and sedated with Propofol and Fentanyl infusing. SBT done in AM with ABG results [id number]. aware ans patient remains intubated. Lungs coarse through out with
scattered exp wheezes. Current Sao2 94% on vent setting A/C 14-500-40% peep 5. Soft wrist restraints maintained for patient safety with current order on chart and documentation as noted. A-fib on monitor. Afebrile. B/P's stable. Suctions for small
amounts of garrido secretions. Hypo BS. No bowel movement today. Jevity 1.5 infusing at goal rate of 40 ml/hr. Yung draining yellow urine. Family into visit and updated to patient condition. Patient currently in bed with soft restraints in place and
side rails up. Will continue to monitor closely.
[2023-06-13] MEDS: LOPRESSOR 50 MG TUBE (15:40)
[2023-06-13] MEDS: NOVOLOG FLEXPEN-HIGH RESISTANCE 4 UNITS SC ×2 (17:37→23:49)
[2023-06-13 17:46] LABS: Glucose - Point of Care 214 mg/dl (70-99)
--- NOTE | 2023-06-13 20:00 | PTCARENOTE ---
Rec`d pt at 1900 intubated and sedated on prop and fent. pt opens eyes to name. Afib on monitor. +1 edema lower bilateral legs. afebrile. Lungs coarse throughout. 92% on vent...setting A/C 14/500/40%/ 5 of peep. Jevity 1.5 infusing at 40 ml/hr with
25cc flush through Rt nare Dobhoff tube. Therm dias draining yellow urine. Restraints in place for #1 justification. safe environment maintained. pt resting comfortably.
[2023-06-13 23:58] LABS: Glucose - Point of Care 207 mg/dl (70-99)
[2023-06-14] VITALS (27 sets, daily range): BP systolic 95–160; BP diastolic 46–124; PULSE 2–73; BMI 26.9
--- NOTE | 2023-06-14 | PTCARENOTE ---
pt reassessed. no changes in pt assessment. safe environment maintained.
[2023-06-14] MEDS: DUONEB 3 ML INH ×5 (00:19→20:06)
[2023-06-14 04:49] LABS: % Basophils 0.1 % (0-2); % Immature Granulocytes 1.1 % (0-0.5); % Lymphocytes 2.6 % (20.5-51.1); % Monocytes 3.6 % (1.7-9.3); % Neutrophils 92.6 % (42.2-75.2); Absolute Immature Granulocytes 0.1 10^3/uL (0-0.05); Absolute Lymphocytes 0.3 10^3/uL (1.2-3.4); Absolute Monocytes 0.4 10^3/uL (0.1-0.6); Absolute Neutrophils 10.7 10^3/uL (1.4-6.5); Hematocrit 37.9 % (39.0-52.0); Hemoglobin 11.7 g/dL (13.0-18.0); Mean Corp Hgb Conc. 30.9 g/dL (33.0-37.0); Mean Corpuscular Hgb 26.7 pg (27.0-31.0); Mean Corpuscular Volume 86.3 fL (80.0-94.0); Mean Platelet Volume 10.3 fL (7.4-10.4); Nucleated Red Blood Cells % 0.6 % (-); Platelet Count 182 10^3/uL (130-400); Red Blood Cell Count 4.39 10^6/uL (4.70-6.10); Red Cell Dist. Width 17.9 % (11.5-14.5); White Blood Cell Count 11.5 10^3/uL (4.8-10.8)
[2023-06-14 05:07] LABS: Blood Urea Nitrogen 92 mg/dl (9-20); Calcium 8.3 mg/dl (8.4-10.2); Carbon Dioxide 23 mmol/L (22-30); Chloride 108 mmol/L (98-107); Estimated Creatinine Clearance 43 ml/min; Glucose 264 mg/dl (70-99); Potassium 5.5 mmol/L (3.5-5.1); Sodium 136 mmol/L (135-145); Triglycerides 183 mg/dl (10-149); eGFR 38.91
[2023-06-14] MEDS: DECADRON 4 MG IV (05:16)
[2023-06-14] MEDS: DIPRIVAN 100 IV (05:36)
[2023-06-14] MEDS: NOVOLOG FLEXPEN 5 UNITS SC (05:37)
[2023-06-14] MEDS: NOVOLOG FLEXPEN-HIGH RESISTANCE 10 UNITS SC (05:38)
[2023-06-14 05:48] LABS: Glucose - Point of Care 316 mg/dl (70-99)
[2023-06-14] MEDS: NOVOLIN R 10 UNITS IV (06:15)
[2023-06-14] MEDS: DEXTROSE 50% SYRINGE 25 GRAMS IV (06:17)
[2023-06-14] MEDS: VIBRAMYCIN 100 MG TUBE (07:22)
[2023-06-14] MEDS: PROTONIX IV 40 MG IV (07:23)
[2023-06-14] MEDS: MIRALAX 17 GRAMS TUBE (07:23)
[2023-06-14] MEDS: ELIQUIS 5 MG TUBE ×2 (07:23→21:12)
[2023-06-14] MEDS: NSS (PRESERVATIVE FREE) 10 ML IV (07:23)
[2023-06-14] MEDS: ZYLOPRIM 100 MG TUBE (07:23)
[2023-06-14] MEDS: FOLVITE 1 MG TUBE (07:23)
[2023-06-14] MEDS: THIAMINE INJECTION 200 MG IV (07:24)
[2023-06-14] MEDS: SUBLIMAZE 100 IV (08:40)
--- NOTE | 2023-06-14 09:26 | W.PN.ID1 ---
Date of Service
Date of Service: June 14, 2023
Today's Communication
Continue ceftriaxone.
Assessment / Plan
# CAP
- Sputum cx :Haemophilus influenzae, beta-lactamase neg
- Agree with ceftriaxone (d4 abx) to complete 7d course.
# Strep species bacteremia, 1 out of 4 bottles
- Likely contaminant
- Follow repeat blood cx.
- No need to treat at this time.
# AECOPD
- on steroid
- on doxycycline
# Acute on chronic hypoxemic/hypercapnic resp failure
- Weaning from vent
# Tobacco use disorder
- Will benefit from smoking cessation
#Additional Past Medical History:
DM
COPD
Permanent Afib
hx V-fib cardiac arrest
HFpEF
AICD
Sleep apnea, intolerant to CPAP
gout
CKD3
PAD
Chief Complaint
-: Pneumonia
Subjective / Review of Systems
Awake. Occasional agitation per nurse.
Vital Signs / Physical Exam
Vital Signs
Vital Signs
Temp Pulse Resp BP Pulse Ox
97.7 F 101 23 129/58 97
06/14/23 07:56 06/14/23 09:00 06/14/23 09:00 06/14/23 09:00 06/14/23 09:00
Physical Exam
Constitutional: No Acute Distress
Eyes: No Conjunctival Hemorrhage and Sclera Anicteric
Cardiovascular: Irregular Rate and S1/S2
Pulmonary: Clear (anteriorly)
Gastrointestinal: Soft, Non Tender and Non Distended
Genito-Urinary: Yung and Clear Urine
Extremities: Venous Insufficiency (bilateral LE)
Objective Data
Lab Data
Lab Results
06/14/23 04:27
PT 19.4 Sec (11.4-14.6) H 06/11/23 16:10
INR 1.66 06/11/23 16:10
APTT 39.0 Sec (23.4-35.0) H 06/11/23 16:10
Estimated Creat Clear 43 ml/min 06/14/23 04:27
Lactic Acid Cancelled 06/11/23 16:45
Total Bilirubin 1.0 mg/dl (0.2-1.3) 06/11/23 11:56
GGT 99 U/L (15-73) H 06/11/23 16:10
AST 30 U/L (17-59) 06/11/23 11:56
ALT 21 U/L (0-50) 06/11/23 11:56
Alkaline Phosphatase 149 U/L (38-126) H 06/11/23 11:56
Most recent labs reviewed.
Micro Results:
06/11/23 13:03 Blood Culture - Preliminary
Blood/Venous No Growth in 48 hours- Final report to follow
06/11/23 17:53 Respiratory Culture - Final
Endotracheal Haemophilus influenzae
Gram Stain - Final
06/13/23 11:51 Blood Culture - Pending
Blood/Venous
06/13/23 11:22 Blood Culture - Pending
Blood/Venous
06/11/23 13:03 Blood Culture - Preliminary
Blood/Venous Streptococcus species
Additional testing on request
Gram Stain - Preliminary
06/12/23 04:54 Nasal Screen MRSA (PCR) - Final
Nose MRSA not detected - performed by PCR methodology.
06/11/23 CXR: Bibasilar airspace opacities are remonstrated.
06/11/23 CXR: Moderate to severe bibasilar airspace disease (right worse than left), progressed from prior.
06/12/23 CXR: Moderate right basilar parenchymal airspace disease/pneumonia, improved but unresolved.�
--- NOTE | 2023-06-14 09:41 | W.PN.CD ---
Today's Communication / Plan
-
Hold Sotalol for severe FORTINO on CKD
- but will plan to resume
- He has VFx2 with no sotalol and no VF since sotalol added
Holding Farxiga given FORTINO
No diuretic today
Given lots of wheezing and fairly good LVEF if we must we can stop metoprolol and try Dilt for rate control
34 min of critical care time spent today caring for the patient
Impression / Plan
-
Acute hypoxic respiratory failure, severe, requiring intubation
- Multifactorial in the setting of COPD and HFmidrangeEF
- Seems mostly of pulmonary etiology, not much acute HF
Positive blood culture => Strep in pairs
- ID suspects contaminant
Ventricular fibrillation arrest, status post ICD, on sotalol, followed in our device clinic
- Sotalol still on hold, will resume (FORTINO)
COPD, acute exacerbation, per pulmonary
- Lots of wheezing
HFmidrangeEF, acute on chronic
- Now off diuresis => typically on low dose diuretic
- Holding Farxiga given FORTINO
- Trend daily weight, I/O, and BMP with diuresis
- Heart failure education after he is extubated
Permanent atrial fibrillation
- Rate controlled. If needed we can try and stop metoprolol and use Dilt for rate control
- May need to discontinue digoxin and decrease sotalol given FORTINO, follow
- Oral Anticoagulation: Apixaban 5 mg twice daily
- [id number]: Score at least 3 (Heart failure, HTN, Diabetes Mellitus)
FORTINO on CKD
- Severe, perhaps a bit better
Hypertension, BP currently at goal, mild cLVH on TTE
Pulmonary hypertension, PASP 86 mmHg on most recent echocardiogram
Int-ibkplso-tqzrqcqkg diabetes mellitus, HgbA1c worsening 7.1%
Current tobacco smoker, cessation important
Subjective:
Intubated and sedated
Physical Exam
Vital Signs/Labs
Vital Signs
Temp Pulse Resp BP Pulse Ox
97.7 F 101 23 129/58 97
06/14/23 07:56 06/14/23 09:00 06/14/23 09:00 06/14/23 09:00 06/14/23 09:00
06/13/23 06/14/23 06/15/23
06:59 06:59 06:59
Actual Weight 90.3 kg 90 kg
06/14/23 04:27
PT 19.4 Sec (11.4-14.6) H 06/11/23 16:10
INR 1.66 06/11/23 16:10
APTT 39.0 Sec (23.4-35.0) H 06/11/23 16:10
Magnesium 2.1 mg/dl (1.6-2.3) 06/12/23 01:00
Triglycerides 183 mg/dl (10-149) H 06/14/23 04:27
TSH 0.65 uIU/ml (0.47-4.68) 06/12/23 01:00
Digoxin 0.5 ng/ml (0.8-2.0) L 06/12/23 01:00
06/11/23
11:56
Eos-H-Prptbruwtht Pept 7490
LAB Results
06/11/23
11:56
Troponin I 0.020
Physical Exam
Constitutional: Other (intubated and sedated)
EENT: Anicteric
Cardiovascular: Rhythm/rate is irregular and S1S2 is normal
Respiratory: Wheeze Present
GI: Soft and Distention absent
Data Reviewed
-
Date of Service: June 14, 2023
[2023-06-14] MEDS: LOKELMA 10 GRAM TUBE (10:14)
[2023-06-14 10:47] LABS: Glucose - Point of Care 188 mg/dl (70-99)
[2023-06-14 10:55] LABS: B.E. 2.1 mmol/L; HCO3 29.4 mmol/L (21-28); O2 Saturation % 84.2 % (94-98); PCO2 57 mmHg (35-48); pH 7.32 (7.35-7.45)
--- NOTE | 2023-06-14 10:56 | W.PN.INTV ---
Today's Communication / Plan
Recommendations
Spontaneous breathing trial: Extubate today.
Decrease IV corticosteroids
Continue antibiotic therapy
Continue tube feedings
Follow BMP later, if remains hypercapnic additional Lasix will be given.
Heart rate control per cardiology.
Assessment
-
Acute on chronic hypercapnic respiratory failure requiring mechanical ventilation, acute exacerbation of COPD.
ABG 06/11/2023: 7.06, 94/132
Emergently intubated 06/11/2023
Chest x-ray: Bilateral infiltrates.
Increased proBNP
Differential diagnosis includes pneumonia ( has leukocytosis) and/or acute on chronic heart failure with preserved ejection fraction.
HAZEL:01/2023 :Normal left ventricular systolic function. Left ventricular ejection fraction
�is 55%.Mild to moderate mitral regurgitation.Moderate tricuspid regurgitation.
Suspect chronic cor pulmonale due to underlying COPD
Patient failed BiPAP overnight, ABGs without significant improvement, patient is intubated and mechanically ventilated.
Conditions MARBLE MASON:
Dosed on hospital admission 04/2023: Hypercapnic respiratory failure due to COPD exacerbation.
COPD: symbicort. Patient states he is not using it or any BD or O2 at home
FLAVIO: PSG 6 y ago, once, rec CPAP, used only briefly s O2 and could not adapt, ended up returning equipment
AFib on apixaban, metoprolol, sotalol, digoxin
HFrecoveredEF on HAZEL 02-16-23 (EF 45=5% on TTE )
V-fib cardiac arrest, s/p ICD/PM
MReg
HTN
Gout
Arthritis
DM
CKD
Peripheral artery disease, s/p iliac stent
Back surgery
Smoker: 1 ppd for 49 y, down to 7 cig/d for last 2 m
ETOH use: beer, weekly intoxication for 49 y till 3 m ago when quit ETOH
Assessment and plan:
Patient is critically ill, lethargic, with acute severe hypercapnic respiratory failure, acute onset change in mental status. Required emergent intubation 06/11/2023, does not respond to BiPAP therapy.
Current acute decompensation possibly from infectious etiology pneumonia/with increased proBNP heart failure is a possibility on top of his underlying COPD with acute exacerbation. It is noted in the past that the patient has refused oxygen therapy
and has history of medical noncompliance. Notes reviewed from admission in April 2023.
-
Overall clinically improving but remains critically ill 06/14/2023.
In discussion with Dr. Davis who knows the patient from the outpatient setting, patient always has a wheeze.
-
intubated 06/11/2023.
Mechanical ventilation settings reviewed. Pulmonary mechanics stable with a peak pressure of 26.
Patient continues to be with abnormal breath sounds which is a chronic problem.
Hemodynamically stable.
Secretions improved since admission
With sedation breaks patient has a strong cough.
He is appropriate, following commands. Moving 4 extremities.
All sedation has been discontinued early this morning 06/14/2023 per
-
Spontaneous breathing trial for over an hour performed under my supervision. On reevaluation blood pressure is a stable. Atrial fibrillation is slightly fast at 110 140 but patient is somewhat restless and would like to be extubated.
Saturations are above 94%.
ABG was mixed venous. Looks improved compared to yesterday.
at this point recommend extubation
Would utilize BiPAP 5/15 as needed.
Continue oxygen supplementation to maintain pulse ox above 88%
All sedation will be discontinued.
-Acute exacerbation of COPD: Improved bronchospasm.
Dexamethasone decreased to 2 mg IV every 8 hours 06/14/2023.
Inhalers discontinued because of patient's condition.
DuoNeb continue for now, 4 times a day.
-
Sputum culture with haemophilus influenza.
Continue ceftriaxone and complete total 7 days of antibiotics.
Blood culture positive with Streptococcus species.Final cultures pending.
Repeat blood cultures were sent.
Chest x-ray 06/14/2023: Reviewed, mild right lower lobe pneumonia. Improved compared to prior. There is mild left lower lobe abnormality.
-
MRSA screen negative.
-
Heart failure with preserved ejection fraction. proBNP elevated to 7490. Alternatively, proBNP may be from cor pulmonale as the patient is not compliant with oxygen or BiPAP therapy.
Negative cardiac troponin.
He has bilateral cyanotic feet which per are chronic. Significant lower extremity edema 2-3+.
Status post diuresis, hold for now due to increased creatinine. Lower extremity edema improved.
Echocardiogram noted. Pulmonary hypertension has improved. Slightly decreased LVEF.
Sotalol, Farxiga on hold due to FORTINO
Intermittent Lasix, defer to cardiology.
Trend daily weight, I/O
-Acute kidney injury, improved.
Hyperkalemia, Lokelma was given. Repeat BMP later today. If persistently hypercapnic then Lasix will be given.
Will optimize bowel regimen as well.
Follow BMP.
-
History of obstructive sleep apnea: Patient did not tolerate CPAP at home
-
Elevated blood sugars 256 blood sugar goal 140-180.
Insulin drip started 06/14/2023.
-Permanent atrial fibrillation
Sotalol on hold due to FORTINO
Okay to continue with metoprolol for now. Has been tolerating in the outpatient setting.
Defer further heart rate control medication to cardiology
Anticoagulation with apixaban
-DVT prophylaxis-on apixaban.
NG tube feeding-tolerating.
Dr. Bernal updated at the bedside 06/14/2023 per
Case discussed with cardiology and primary team as well
Critical care statement: A total of 32 minutes of critical care time was provided for this patient today. This includes management of unstable vital signs, evaluation of the patient at bedside, reviewing the patient's pertinent medical records
including ventilator settings, arterial blood gases, radiographs, microbiology, laboratory evaluations and discussion with primary team, critical care nursing, and respiratory therapy.
Subjective Dataa
Subjective Data
Date of Service:
Date of Service: June 14, 2023
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
Subjective:
Patient remains critically ill, intubated on mechanical ventilation.
Patient is appropriate with sedation breaks, following commands.
Has remained hemodynamically stable.
Review of Systems
General: Other (Difficult to obtain due to intubation status.)
Objective Data
Data Reviewed
Vital Signs / I&O / Oxygen:
Vital Signs
Temp Pulse Resp BP Pulse Ox
97.7 F 125 21 129/58 95
06/14/23 07:56 06/14/23 09:52 06/14/23 09:52 06/14/23 09:00 06/14/23 09:52
Intake and Output
06/13/23 06/14/23 06/15/23
06:59 06:59 06:59
Intake Total 1678.8 / 1773.9 2060.2 / 2113.8 194.8 / 194.8
Output Total 2715 / 2715 2350 / 2350 275 / 275
Balance -1036.2 / -941.1 -289.8 / -236.2 -80.2 / -80.2
SaO2 [CPAP/PSV] 94
SaO2 [A/C] 97
SaO2 95
Nasal Cannula flow liters per 10
minute
Physical Exam
General: Other (Patient is sedated)
HEENT: Normocephalic and Anicteric
Cardiovascular: S1-S2, Irregular Rhythm and Peripheral Edema
Respiratory: Wheeze (Bilateral, expiratory.), Crackles and ET Tube (Yellow secretions improved. No evidence for hemoptysis.)
GI: Soft and Distended (Obese)
Neurology: Awake, Alert, Other (Difficult to obtain history due to intubation status.) and Other (Following commands with sedation breaks.)
Skin: Warm and Dry
Labs/Micro/Reports
Lab Data
06/14/23 04:27
Laboratory Results
06/13/23
12:42
pH 7.32 L
pCO2 54 H
pO2 106
HCO3 27.8
O2 Delivery Level
Microbiology
06/11/23 13:03 Blood/Venous Blood Culture - Preliminary
No Growth in 48 hours- Final report to follow
06/11/23 17:53 Endotracheal Respiratory Culture - Final
Haemophilus influenzae
06/11/23 17:53 Endotracheal Gram Stain - Final
06/11/23 13:03 Blood/Venous Blood Culture - Preliminary
Streptococcus species
Additional testing on request
06/11/23 13:03 Blood/Venous Gram Stain - Preliminary
06/12/23 04:54 Nose Nasal Screen MRSA (PCR) - Final
MRSA not detected - performed by PCR methodology.
[2023-06-14 10:57] LABS: PO2 58 mmHg (83-108)
[2023-06-14] MEDS: LOPRESSOR 50 MG TUBE ×3 (11:15→21:15)
--- NOTE | 2023-06-14 11:24 | RESPNOTE ---
patient extubated at 1120 without incident. 90% on 6L.
[2023-06-14] MEDS: NOVOLOG FLEXPEN SC ×2 (12:00→17:11)
[2023-06-14] MEDS: NOVOLIN R 3 UNITS IV (12:04)
[2023-06-14 12:05] LABS: Glucose - Point of Care 190 mg/dl (70-99)
[2023-06-14] MEDS: NOVOLIN R INSULIN INFUSION 100 IV (12:06)
[2023-06-14] MEDS: ROCEPHIN 1000 MG IV (12:23)
[2023-06-14] MEDS: STERILE WATER FOR INJECTION 10 ML IV (12:24)
--- NOTE | 2023-06-14 12:48 | PN.DE.MGMTRT ---
Insulin Management
- -
06/14/2023 Diabetes Management Consult
Patient admitted 06/11/2023 with Acute kidney injury, acute CHF,exacerbation of COPD, Acute pneumonia. PMH COPD, CHF, afib , ICD /pacemaker placement, cardiac arrest, HTN, HCL, type 2 diabetes, valvular disease. In the past patient has taken
glimepiride 2.5 mg daily and metformin 500 mg BID but these were both stopped. He was started on Farxiga 10 mg daily on 06/08/2023. A1C on admission 7.1%, CR 2.4, eGFR 29.39 . Patient was intubated on ventilator. He is receiving steroids IV.
Glucose has trended up as high as 347.
Today Patient has been extubated, he is alert and oriented able to speak to me regarding his diabetes care prior to admission. His voice is raspy. He is receiving tube feedings @ 40 per hour.
The AM CR is 1.9, eGFR 38.91. Fasting glucose 316 today. He did receive 15 units of novolog and 10 units of R this AM. Glucose 188 and 190. Will start glycemic protocol as ordered by Dr. Bernal. I spoke to the nurse.
Patient does NOT have a glucose monitor.
Diabetes History
- -
Type of Diabetes: 2
Pre-Admission Diabetes Regimen
06/14/23
04:27
Creatinine 1.9 H
Lab Results
Hemoglobin A1c 7.1 % (4.0-5.6) H 06/12/23 01:00
Insulin Pump Settings
IP Diabetes Regimen
06/13/23 06/13/23 06/14/23
17:35 23:46 04:27
Glucose 264 H
POC Glucose 214 H 207 H
06/14/23 06/14/23 06/14/23
05:36 10:36 11:54
Glucose
POC Glucose 316 H 188 H 190 H
Meal type: Breakfast
Patient Education
[2023-06-14 13:22] LABS: Glucose - Point of Care 118 mg/dl (70-99)
[2023-06-14 14:15] LABS: Glucose - Point of Care 121 mg/dl (70-99)
[2023-06-14] MEDS: DECADRON 2 MG IV ×2 (14:44→21:15)
[2023-06-14 14:57] LABS: Blood Urea Nitrogen 90 mg/dl (9-20); Calcium 8.3 mg/dl (8.4-10.2); Carbon Dioxide 28 mmol/L (22-30); Chloride 105 mmol/L (98-107); Estimated Creatinine Clearance 37 ml/min; Glucose 133 mg/dl (70-99); Potassium 5.6 mmol/L (3.5-5.1); Sodium 139 mmol/L (135-145); eGFR 32.63
--- NOTE | 2023-06-14 15:07 | W.PN.UPDATE ---
Update Note
Progress Note Update
BMP noted, potassium remains elevated at 5.6. Slightly higher. Did not respond to Lokelma.
Will give 60 mg of IV Lasix now.
Repeat later
[2023-06-14] MEDS: LASIX 60 MG IV (15:13)
[2023-06-14 15:15] LABS: Glucose - Point of Care 124 mg/dl (70-99)
--- NOTE | 2023-06-14 15:43 | W.PN.UPDATE ---
Update Note
Progress Note Update
Extubated, no stridor on exam.
Continue with nebulizer therapy
Will add secretion clearance interventions
Will add Pulmicort
Continue with supplemental oxygen
Additional dose of Lasix will be given due to hyperkalemia
--- NOTE | 2023-06-14 15:53 | PTCARENOTE ---
Patient received in AM with assessment as noted. Initially intubated with Fentanyl and Propofol infusing. Sedation weaned for planned SBP and d/c'd at 0915. SBT done between 9559-2138 and tolerated well with tidal volumes 350-420 ml and respiratory
in the 20's. Sao2 >93% and ETCO2 in the 40's. Seen by and extubation ordered and done at 1120. Patient weaned from 6 to 4 lnc with Sao2 maintained >93%. Voice initially a very weak oriented whisper but is slowly improving but is still
very hoarse. Speech oriented, affect calm and cooperative. Restraints d/c'd upon extubation. MSAS score of 2 with points given for heart rate. Rapid A-fib on monitor. Afebrile. More hypertensive with sedation d/c'd. Denies pain. Lungs continue
coarse with exp wheezes and scattered rhonchi. Hypo BS. No bowel movement today. Jevity 1.5 infusing via right nares Dobhoff at goal rate of 40 ml/hr with residuals <110 ml. Yung draining yellow urine. Family into visit and updated to patient
condition. Patient currently in bed with call perez and telephone in reach. Will continue to monitor closely.
[2023-06-14 16:18] LABS: Glucose - Point of Care 132 mg/dl (70-99)
--- NOTE | 2023-06-14 17:00 | W.PN.HOSP.TC ---
Today's Communication/Plan
-
Extubated.
Continue antibiotics covering community-acquired pneumonia
Steroid taper
Additional Lasix provided for volume as well as hyperkalemia.
A-fib rate controlled with metoprolol.
Address hyperglycemia with insulin protocol
Speech and swallow evaluation
Assessment / Plan
Assessment / Plan
IMPRESSION:
Acute hypoxic/hypercapnic respiratory failure.
VDRF
� Intubated on 06/10
Severe respiratory acidosis
Community-acquired pneumonia
Bilateral infiltrates likely attributed to community-acquired pneumonia as well as pulmonary edema.
COPD exacerbation
Acute CHF preserved EF
FORTINO
Hyperkalemia
TME secondary to CO2 retention
Conditions prior to admission:
COPD
Obstructive sleep apnea intolerant to CPAP
CHF preserved/recovered EF: HAZEL 02/22 LVEF of 55% and severe pulmonary hypertension
V-fib status post AICD
Essential hypertension
Gout
Diabetes by history not on medications at home.
CKD stage IIIa-b
Ongoing tobacco smoker.
Alcohol use disorder
PLAN:
Acute hypoxic/hypercarbic respiratory failure.
Presents with hypoxia and pulse ox of 74% on room air.
Exam with +3 pitting edema to lower extremities
Elevated pro CHF BNP
Leukocytosis
ABG consistent with severe respiratory acidosis and hypoxia
Chest x-ray with bilateral infiltrate
Differential diagnosis for above likely multifactorial suspected decompensated CHF preserved EF also with severe pulmonary hypertension, COPD exacerbation, likely bilateral pneumonia.
Failed attempt of BiPAP with persistent respiratory acidosis and required intubation
� Intubated on 06/10
- Extubated on 06/13
Speech and swallow evaluation
Acute on chronic CHF preserved EF/pulmonary hypertension.
Updated echocardiogram 06/11: LVEF 40-50%, mild diffuse hypokinesis, mild MR, pulmonary pressure 37 mmHg
Preadmission regimen including metoprolol, Farxiga, furosemide 3 times a week, questionable compliance
IV Lasix provided on 06/10 - 06/11, 314
Follow-up volume status is extubated
ID:
Community-acquired pneumonia
Sputum culture positive for haemophilus influenza
Bilateral infiltrates with concern for multifocal pneumonia.
Streptococcal bacteremia 1 out of 4 likely contaminant
Antibiotics consolidated to ceftriaxone/doxycycline
Acute kidney
Cardiorenal state with
Monitor creatinine while on IV Lasix
Noted worsening azotemia 109
Yung catheter in place since 06/10
Hyperkalemia observe status post Lokelma and IV Lasix.
COPD suspect exacerbation with decompensated respiratory failure.
Continue short acting bronchodilators,
Continue corticosteroids taper
Type 2 diabetes.
Hemoglobin A1c 7.1
Persistent hyperglycemia likely steroid-induced
Initiated on insulin protocol. Will continue until settled respiratory and hemodynamic status prior to transition to oral regimen, possibly standing dose of insulin.
Permanent atrial fibrillation
History of V-fib status post AICD PPM.
Home regimen: Metoprolol, sotalol, digoxin
Off sotalol due to FORTINO
Reintroduce metoprolol and monitor rate postextubation
Continue anticoagulation with Eliquis
Gout
Continue allopurinol.
Alcohol use disorder.
High risk for DT
Continue MSAS protocol
Thiamine
Ongoing tobacco use disorder
Extensively counseled about quitting
Full code
DVT prophylaxis/Eliquis
Anticipated Discharge: > 48 hours
Subjective/Interval History
-
Date of Service: June 14, 2023
Objective Data
-
Labs:
Laboratory Results
06/14/23 06/14/23 06/14/23
04:27 09:23 10:46
WBC 11.5 H
Hgb 11.7 L
Hct 37.9 L
Plt Count 182
HCO3 29.4 H
Sodium 136 Pending
Potassium 5.5 H Pending
Chloride 108 H Pending
Carbon Dioxide 23 Pending
BUN 92 H Pending
Creatinine 1.9 H Pending
Glucose 264 H Pending
Calcium 8.3 L Pending
06/14/23
14:29
WBC
Hgb
Hct
Plt Count
HCO3
Sodium 139
Potassium 5.6 H
Chloride 105
Carbon Dioxide 28
BUN 90 H
Creatinine 2.2 H
Glucose 133 H
Calcium 8.3 L
Vital Signs:
Vital Signs
Temp Pulse Resp BP Pulse Ox
97.8 F 113 16 141/96 95
06/14/23 15:04 06/14/23 16:12 06/14/23 16:00 06/14/23 16:12 06/14/23 16:00
I&O
06/13/23 06/14/23 06/15/23
06:59 06:59 06:59
Intake Total 1678.8 / 1773.9 2060.2 / 2113.8 596.4 / 596.4
Output Total 2715 / 2715 2350 / 2350 535 / 535
Balance -1036.2 / -941.1 -289.8 / -236.2 61.4 / 61.4
Physical Exam
-
General: Well Developed and No Apparent Distress
HEENT: Normocephalic, Atraumatic and Moist Mucous Membranes
Respiratory: Clear to Auscultation
Cardiac: Regular Rhythm and S1/S2; Negative Murmur, Rub or Gallop
GI: Soft, Nontender, Nondistended and Normal Bowel Sounds; Negative Organomegaly
Rectal: Deferred by Provider
Musculoskeletal: No Clubbing, No Cyanosis and No Edema
Skin: Negative Rash
Neuro: Nonfocal/Grossly Intact
[2023-06-14 17:15] LABS: Glucose - Point of Care 136 mg/dl (70-99)
[2023-06-14 18:11] LABS: Glucose - Point of Care 147 mg/dl (70-99)
--- NOTE | 2023-06-14 20:00 | PTCARENOTE ---
rec`d pt at 1900 laying in bed, AAOx 3 talking to his daughter. glycemic protocol continued. A fib on monitor. hr low 100s. +pulses, + 1 generalized edema. 92% on 4L. wears BIPAP at night. coarse lung sounds. productive cough. pt will suction self
with Asif. Rt angelica suggs @70 florecita. Tf jevity 1.2 at 40cc/hr with 25cc flush. round, hard, distended abdomen. dias in place draining adequate yellow urine. Left arm covered with foams. safe environment maintained. call perez in reach.
[2023-06-14] MEDS: PULMICORT 0.5 MG INH (20:06)
[2023-06-14 20:20] LABS: Glucose - Point of Care 138 mg/dl (70-99)
[2023-06-14] MEDS: VITAMIN B1 100 MG PO (21:12)
[2023-06-14 21:18] LABS: Glucose - Point of Care 142 mg/dl (70-99)
[2023-06-14 22:14] LABS: Glucose - Point of Care 129 mg/dl (70-99)
[2023-06-14 23:20] LABS: Glucose - Point of Care 135 mg/dl (70-99)
[2023-06-15] VITALS (22 sets, daily range): BP systolic 123–170; BP diastolic 70–96; PULSE 2–111; O2SAT 96–97; BMI 26.9; BMI 27.6
--- NOTE | 2023-06-15 | PTCARENOTE ---
pt reassessed. no changes in pt assessment. glycemic protocol continued. call perez in reach
[2023-06-15 00:21] LABS: Glucose - Point of Care 172 mg/dl (70-99)
--- NOTE | 2023-06-15 00:55 | RESPNOTE ---
Pt was very concerned that the CPT would set off his defibrillator. Pt states that his backpack leaf blower sets off the defibrillator. It was this RTs' decision to make dayshift aware to consult the pulmonary group.
--- NOTE | 2023-06-15 00:59 | RESPNOTE ---
BORING MACHINE OPERATOR HORIZONTAL made aware that the patient was extremely concerned about the CPT setting off his defibrillator. Pt also states that his backpack leaf blower sets off the defibrillator. It was this RTs' decision to make dayshift RT aware to consult pulmonary.
[2023-06-15 01:15] LABS: Glucose - Point of Care 168 mg/dl (70-99)
[2023-06-15 03:20] LABS: Glucose - Point of Care 182 mg/dl (70-99)
--- NOTE | 2023-06-15 04:00 | PTCARENOTE ---
pt reassessed. no changes in pt assessment. call perez in reach.
[2023-06-15] MEDS: LOPRESSOR 50 MG TUBE ×2 (04:04→09:47)
[2023-06-15 04:09] LABS: % Basophils 0.1 % (0-2); % Immature Granulocytes 1.2 % (0-0.5); % Lymphocytes 2.1 % (20.5-51.1); % Neutrophils 91.6 % (42.2-75.2); Absolute Immature Granulocytes 0.2 10^3/uL (0-0.05); Absolute Lymphocytes 0.3 10^3/uL (1.2-3.4); Absolute Monocytes 0.8 10^3/uL (0.1-0.6); Hemoglobin 12.6 g/dL (13.0-18.0); Mean Corpuscular Volume 89.9 fL (80.0-94.0); Mean Platelet Volume 9.3 fL (7.4-10.4); Nucleated Red Blood Cells % 0.2 % (-); Platelet Count 193 10^3/uL (130-400); Red Blood Cell Count 4.67 10^6/uL (4.70-6.10); Red Cell Dist. Width 17.9 % (11.5-14.5); White Blood Cell Count 16.4 10^3/uL (4.8-10.8)
[2023-06-15 04:13] LABS: Glucose - Point of Care 162 mg/dl (70-99)
[2023-06-15 05:36] LABS: Glucose - Point of Care 107 mg/dl (70-99)
[2023-06-15] MEDS: DECADRON 2 MG IV ×3 (05:36→21:36)
[2023-06-15 06:37] LABS: Glucose - Point of Care 88 mg/dl (70-99)
[2023-06-15 07:10] LABS: Glucose - Point of Care 104 mg/dl (70-99)
--- NOTE | 2023-06-15 07:23 | PN.DE.MGMTRT ---
Insulin Management
- -
06/15/2023: Diabetes Management F/U:
Patient admitted 06/11/2023 w/ FORTINO, Acute CHF, COPD exacerbation and Acute pneumonia.
PMH includes: Ischemic CM, moderate MR, CHF, A-Fib , ICD/ PPM, cardiac arrest, COPD, pulmonary emphysema, CKD3a, HTN, HCL, T2DM, valvular disease, Active smoker (unmotivated to quit), chronic pain with narcotic drug use.
Was taking Glimepiride 2.5 mg daily and Metformin 500 mg BID in the past, both stopped due to CKD. He was started on Farxiga 10 mg daily on 06/08/2023.
A1C on admission 7.1%, CR 2.4, eGFR 29.39.Cr remains elevated, 2.3-->2.0 today.
Patient was intubated on 06/10, Extubated on 06/13. He continues on IV steroids and tube feeds-->Hyperglycemia--> Critical care glycemic protocol.
Glucose has improved, 88 to 182, requiring 0.4 to 7 units of insulin/hr.
Will closely monitor and reassess for readiness to transition to oral medications, ideally at d/c of tube feeds.
He is awaiting speech and swallow eval. Discussed SQ insulin use upon transition from insulin gtt given elevated Cr. Pt adamant about resuming Farxiga, states both Metformin and Glimepiride were stopped due to CKD and is aware of risk for worsening
kidney function with continued use of Farxiga. He continued to state that he does not want to hear about insulin use and that his glucose levels have always been good at home.
Diabetes History
- -
Type of Diabetes: 2
Pre-Admission Diabetes Regimen
06/14/23 06/14/23 06/15/23
09:23 14:29 03:57
Creatinine Cancelled 2.2 H Cancelled
06/15/23
06:32
Creatinine Cancelled
Lab Results
Hemoglobin A1c 7.1 % (4.0-5.6) H 06/12/23 01:00
Insulin Pump Settings
IP Diabetes Regimen
06/14/23 06/14/23 06/14/23
09:23 10:36 11:54
Glucose Cancelled
POC Glucose 188 H 190 H
06/14/23 06/14/23 06/14/23
13:10 14:04 14:29
Glucose 133 H
POC Glucose 118 H 121 H
06/14/23 06/14/23 06/14/23
14:59 16:07 17:03
Glucose
POC Glucose 124 H 132 H 136 H
06/14/23 06/14/23 06/14/23
18:00 20:09 21:07
Glucose
POC Glucose 147 H 138 H 142 H
06/14/23 06/14/23 06/15/23
22:03 23:09 00:09
Glucose
POC Glucose 129 H 135 H 172 H
06/15/23 06/15/23 06/15/23
01:03 03:08 03:57
Glucose Cancelled
POC Glucose 168 H 182 H
06/15/23 06/15/23 06/15/23
04:02 05:24 06:26
Glucose
POC Glucose 162 H 107 H 88
06/15/23 06/15/23
06:32 06:58
Glucose Cancelled
POC Glucose 104 H
Meal type: Breakfast
Patient Education
[2023-06-15 07:59] LABS: Blood Urea Nitrogen 95 mg/dl (9-20); Calcium 8.5 mg/dl (8.4-10.2); Carbon Dioxide 35 mmol/L (22-30); Chloride 101 mmol/L (98-107); Estimated Creatinine Clearance 41 ml/min; Glucose 146 mg/dl (70-99); Magnesium 2.7 mg/dl (1.6-2.3); Potassium 5.7 mmol/L (3.5-5.1); Sodium 143 mmol/L (135-145); eGFR 36.58
[2023-06-15] MEDS: PULMICORT 0.5 MG INH ×2 (07:59→20:14)
[2023-06-15] MEDS: DUONEB 3 ML INH ×3 (07:59→20:14)
[2023-06-15 08:23] LABS: Glucose - Point of Care 134 mg/dl (70-99)
[2023-06-15] MEDS: NOVOLOG FLEXPEN 4 UNITS SC (08:29)
[2023-06-15] MEDS: ELIQUIS 5 MG TUBE (08:32)
[2023-06-15] MEDS: MIRALAX 17 GRAMS TUBE (08:33)
[2023-06-15] MEDS: FOLVITE 1 MG TUBE (08:33)
[2023-06-15] MEDS: NSS (PRESERVATIVE FREE) 10 ML IV (08:33)
[2023-06-15] MEDS: VITAMIN B1 100 MG PO ×2 (08:34→19:59)
[2023-06-15] MEDS: ZYLOPRIM 100 MG TUBE (08:34)
[2023-06-15] MEDS: PROTONIX IV 40 MG IV (08:34)
[2023-06-15 09:14] LABS: Glucose - Point of Care 134 mg/dl (70-99)
--- NOTE | 2023-06-15 09:22 | W.PN.ID1 ---
Date of Service
Date of Service: June 15, 2023
Today's Communication
Continue ceftriaxone (d5 abx) to complete 7d course.
Assessment / Plan
# CAP
- Sputum cx :Haemophilus influenzae, beta-lactamase neg
- Continue ceftriaxone (d5 abx) to complete 7d course.
# Strep species bacteremia, 1 out of 4 bottles
- Likely contaminant
- Repeat blood cx negatve
- No need to treat at this time.
# AECOPD
- on steroid
- on doxycycline as per pulm.
# Leukocytosis due to steroid.
# Acute on chronic hypoxemic/hypercapnic resp failure
- Extubated
# Tobacco use disorder
- Will benefit from smoking cessation
#Additional Past Medical History:
DM
COPD
Permanent Afib
hx V-fib cardiac arrest
HFpEF
AICD
Sleep apnea, intolerant to CPAP
gout
CKD3
PAD
Chief Complaint
-: Pneumonia
Subjective / Review of Systems
Extubated.
Vital Signs / Physical Exam
Vital Signs
Vital Signs
Temp Pulse Resp BP Pulse Ox
97.5 F 97 26 123/76 96
06/15/23 08:00 06/15/23 07:59 06/15/23 07:59 06/15/23 06:00 06/15/23 07:59
Physical Exam
Constitutional: Comfortable
Eyes: Sclera Anicteric
Pulmonary: Clear (anteriorly)
Gastrointestinal: Soft, Non Tender and Non Distended
Genito-Urinary: Yung and Clear Urine
Extremities: Venous Insufficiency
Neurological: Awake
Objective Data
Lab Data
Lab Results
06/15/23 03:57
06/15/23 07:31
PT 19.4 Sec (11.4-14.6) H 06/11/23 16:10
INR 1.66 06/11/23 16:10
APTT 39.0 Sec (23.4-35.0) H 06/11/23 16:10
Estimated Creat Clear 41 ml/min 06/15/23 07:31
Lactic Acid Cancelled 06/11/23 16:45
Total Bilirubin 1.0 mg/dl (0.2-1.3) 06/11/23 11:56
GGT 99 U/L (15-73) H 06/11/23 16:10
AST 30 U/L (17-59) 06/11/23 11:56
ALT 21 U/L (0-50) 06/11/23 11:56
Alkaline Phosphatase 149 U/L (38-126) H 06/11/23 11:56
Most recent labs reviewed.
Micro Results:
06/11/23 13:03 Blood Culture - Preliminary
Blood/Venous No Growth in 72 hours- Final report to follow
06/13/23 11:51 Blood Culture - Preliminary
Blood/Venous No Growth in 24 hours- Final report to follow
06/13/23 11:22 Blood Culture - Preliminary
Blood/Venous No Growth in 24 hours- Final report to follow
06/11/23 17:53 Respiratory Culture - Final
Endotracheal Haemophilus influenzae
Gram Stain - Final
06/11/23 13:03 Blood Culture - Preliminary
Blood/Venous Streptococcus species
Additional testing on request
Gram Stain - Preliminary
06/12/23 04:54 Nasal Screen MRSA (PCR) - Final
Nose MRSA not detected - performed by PCR methodology.
06/11/23 CXR: Bibasilar airspace opacities are remonstrated.
06/11/23 CXR: Moderate to severe bibasilar airspace disease (right worse than left), progressed from prior.
06/12/23 CXR: Moderate right basilar parenchymal airspace disease/pneumonia, improved but unresolved.�
[2023-06-15 10:21] LABS: Glucose - Point of Care 127 mg/dl (70-99)
--- NOTE | 2023-06-15 10:23 | W.PN.CD ---
Addendum entered and electronically signed by Ivan Davis MD 06/15/23 16:28:
Move to metoprolol ER 50 bid and in a few days go to 100 BID (his home dose)
Please call with questions.
Original Note:
Today's Communication / Plan
-
Will resume his sotalol
At discharge add back his usual SGLT2-I and his usual diuretic dosing
Metoprolol dosing as needed for rate control
Cardiology will sign off
Impression / Plan
-
Acute hypoxic respiratory failure, severe, requiring intubation
- Multifactorial in the setting of COPD and HFmidrangeEF
- Seems mostly of pulmonary etiology, not much acute HF
ID issues
- Suspected pneuomonia leading to his resp. failure
- Sputum with H. influenzae, beta-lactamase neg => 2 more days of Ceftriaxone planned
- Positive blood culture x1, all others negative => Strep in pairs => ID suspects contaminant
FORTINO on CKD
- Severe
- Hyperkalemia persists
Ventricular fibrillation arrest, status post ICD, on sotalol, followed in our device clinic
- Sotalol will resume now 06/15/2023
COPD, acute exacerbation, per pulmonary
- A bit less wheezing
- Even as outpatient he usually had wheezing but tolerated metoprolol ER at high dose (needed for rate control) and sotalol
HFmidrangeEF, acute on chronic
- Now off diuresis => typically on low dose diuretic
- Holding Farxiga given FORTINO
- Trend daily weight, I/O, and BMP with diuresis
- Heart failure education after he is extubated
Permanent atrial fibrillation
- Rate controlled. If needed we can try and stop metoprolol and use Dilt for rate control
- May need to discontinue digoxin and decrease sotalol given FORTINO, follow
- Oral Anticoagulation: Apixaban 5 mg twice daily
- [id number]: Score at least 3 (Heart failure, HTN, Diabetes Mellitus)
Hypertension, BP currently at goal, mild cLVH on TTE
Pulmonary hypertension, PASP 86 mmHg on most recent echocardiogram
Mng-wefkwut-kckmqvbmb diabetes mellitus, HgbA1c worsening 7.1%
Current tobacco smoker, cessation important
Subjective:
Intubated and sedated
Physical Exam
Vital Signs/Labs
Vital Signs
Temp Pulse Resp BP Pulse Ox
97.5 F 100 16 141/76 97
06/15/23 08:00 06/15/23 09:47 06/15/23 09:12 06/15/23 09:47 06/15/23 09:32
06/14/23 06/15/23 06/16/23
06:59 06:59 06:59
Actual Weight 90 kg 90 kg
06/15/23 03:57
06/15/23 07:31
PT 19.4 Sec (11.4-14.6) H 06/11/23 16:10
INR 1.66 06/11/23 16:10
APTT 39.0 Sec (23.4-35.0) H 06/11/23 16:10
Magnesium 2.7 mg/dl (1.6-2.3) H 06/15/23 07:31
Triglycerides 183 mg/dl (10-149) H 06/14/23 04:27
TSH 0.65 uIU/ml (0.47-4.68) 06/12/23 01:00
Digoxin 0.5 ng/ml (0.8-2.0) L 06/12/23 01:00
06/11/23
11:56
Qrj-V-Xoskhtcczta Pept 7490
Physical Exam
Constitutional: No acute distress
Cardiovascular: Rhythm/rate is irregular
Respiratory: Respiratory effort normal, Crackles Absent and Wheeze Present
GI: Soft and Distention absent
Neuro/Psych: Alert and Oriented
Data Reviewed
-
Date of Service: June 15, 2023
--- NOTE | 2023-06-15 10:29 | PTCARENOTE ---
Complete assessment and noted in chart/worklist. Pt seen this morning by Dr Bernal, Dr Pop, Diabetes LITHOGRAPH PRINTER, and Renal MD. Pt remains afib 90-110. Pt with coarse BS (rhonchi) and exp wheezes throughout all lobes, on 4l nc. O2 sat=95%. Acupella done
at bedside, resp tx given. Pt with dobhof FT with jevity 1.2 at 40 ml/hr and 25 ml hr water flushes. +BS, abd obese, +BSs. Consult placed for swallowing for possible removal of DHT. Miralax given to help with constipation. Yung cath intact,
draining large amts of yellow urine. Pt's at bedside and updated. Pt turned q 2 hrs, P/T consulted to see/assess pt today. Foam drsgs on F/A from previous skin tears intact. Protective drsgs on heels bilat intact. Pt resting comfortably, remote
at side.
--- NOTE | 2023-06-15 11:05 | W.PN.INTV ---
Addendum entered and electronically signed by Mahesh Arciniega MD 06/15/23 14:21:
Patient is on an insulin drip, hopefully after discontinuing NG tube and tube feedings insulin drip will be able to be discontinued.
After discontinuation of insulin drip then transferred to telemetry.
Original Note:
Today's Communication / Plan
Recommendations
PT/OT/speech eval
Continue dexamethasone, Pulmicort
Continue ceftriaxone
Resume Farxiga
Resume sotalol, continue metoprolol
Resume pantoprazole
Assessment
-
Acute on chronic hypercapnic respiratory failure requiring mechanical ventilation, acute exacerbation of COPD.
ABG 06/11/2023: 7.06, 94/132
Emergently intubated 06/11/2023
Chest x-ray: Bilateral infiltrates.
Increased proBNP
Differential diagnosis includes pneumonia ( has leukocytosis) and/or acute on chronic heart failure with preserved ejection fraction.
HAZEL:01/2023 :Normal left ventricular systolic function. Left ventricular ejection fraction
�is 55%.Mild to moderate mitral regurgitation.Moderate tricuspid regurgitation.
Suspect chronic cor pulmonale due to underlying COPD
Patient failed BiPAP overnight, ABGs without significant improvement, patient is intubated and mechanically ventilated.
Patient is extubated 06/14/2023. Hemodynamically condition stable. Lung exam has improved.
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
Dosed on hospital admission 04/2023: Hypercapnic respiratory failure due to COPD exacerbation.
COPD: symbicort. Patient states he is not using it or any BD or O2 at home
FLAVIO: PSG 6 y ago, once, rec CPAP, used only briefly s O2 and could not adapt, ended up returning equipment
AFib on apixaban, metoprolol, sotalol, digoxin
HFrecoveredEF on HAZEL 02-16-23 (EF 45=5% on TTE )
V-fib cardiac arrest, s/p ICD/PM
MReg
HTN
Gout
Arthritis
DM
CKD
Peripheral artery disease, s/p iliac stent
Back surgery
Smoker: 1 ppd for 49 y, down to 7 cig/d for last 2 m
ETOH use: beer, weekly intoxication for 49 y till 3 m ago when quit ETOH
Assessment and plan:
Patient admitted with acute severe hypercapnic respiratory failure, acute onset change in mental status. Required emergent intubation 06/11/2023, does not respond to BiPAP therapy.
Differentials might be infectious etiology pneumonia/with increased proBNP heart failure is a possibility on top of his underlying COPD with acute exacerbation. It is noted in the past that the patient has refused oxygen therapy and has history of
medical noncompliance. Notes reviewed from admission in April 2023.
-
Overall clinically improving.
Patient extubated after spontaneous breathing trial for over an hour on 06/14/2023.
Patient is on 4 L oxygen, saturations above 94%. ABG today pH 7.32, pCO2 57, pO2 58, HCO3 29
Lung exam improved than yesterday with mild bilateral wheezing.
Continue oxygen supplementation.
Acapella device
PT/OT/speech eval today.
-
-Acute exacerbation of COPD: Improved bronchospasm.
Dexamethasone decreased to 2 mg IV every 8 hours 06/14/2023.
Started on Pulmicort.
DuoNeb continue for now, 4 times a day.
-
Sputum culture with haemophilus influenza.
Continue ceftriaxone and complete total 7 days of antibiotics as per ID.
Blood culture positive with Streptococcus species.Final cultures pending.
Repeat blood cultures were sent.
Chest x-ray 06/14/2023: Reviewed, mild right lower lobe pneumonia. Improved compared to prior. There is mild left lower lobe abnormality.
-
MRSA screen negative.
-
Heart failure with preserved ejection fraction. proBNP elevated to 7490. Alternatively, proBNP may be from cor pulmonale as the patient is not compliant with oxygen or BiPAP therapy.
Negative cardiac troponin.
He has bilateral cyanotic feet which per are chronic. Significant lower extremity edema 2-3+.
Status post diuresis, hold for now due to increased creatinine. Lower extremity edema improved.
Echocardiogram noted. Pulmonary hypertension has improved. Slightly decreased LVEF.
Farxiga on hold due to FORTINO
On metoprolol tartrate
Sotalol resumed today as per cardiology recommendation.
Trend daily weight, I/O
-Acute kidney injury, improved.
Persistent hyperkalemia, Lokelma was given. Diuresed yesterday with 60 mg Lasix
Potassium still at 5.7 today
Will optimize bowel regimen as well. MiraLAX given.
Follow BMP.
-
History of obstructive sleep apnea: Patient did not tolerate CPAP at home
-
Elevated blood sugars
Insulin drip started 06/14/2023.
Blood sugars controlled ranging 88�182
Farxiga resumed
-Permanent atrial fibrillation
Sotalol resumed today as per cardiology.
continue with metoprolol.
Anticoagulation with apixaban
-DVT prophylaxis-on apixaban.
NG tube feeding-tolerating.
Subjective Dataa
Subjective Data
Date of Service:
Date of Service: June 15, 2023
Patient extubated 06/14/2023. No acute events overnight, no SOB, chest pain, abdominal pain. He is on 4 L of oxygen. Patient feels a little dizzy with upright position.
Patient remains hemodynamically stable.
Chief Complaint: Survival Equipment Repairer Follow Up (Acute hypercapnic respiratory failure requiring intubation.)
Review of Systems
General: Elevated Blood Sugar
Cardiopulmonary: Wheezing
Genitourinary: Yung
Objective Data
Data Reviewed
Vital Signs / I&O / Oxygen:
Vital Signs
Temp Pulse Resp BP Pulse Ox
97.5 F 100 16 141/76 97
06/15/23 08:00 06/15/23 09:47 06/15/23 09:12 06/15/23 09:47 06/15/23 09:32
Intake and Output
06/14/23 06/15/23 06/16/23
06:59 06:59 06:59
Intake Total 2060.2 / 2113.8 1421.1 / 1487.9 79.3 / 79.3
Output Total 2350 / 2350 2580 / 2780 555 / 555
Balance -289.8 / -236.2 -1158.9 / -1292.1 -475.7 / -475.7
SaO2 [CPAP/PSV] 94
SaO2 [A/C] 97
SaO2 97
Nasal Cannula flow liters per 4
minute
Physical Exam
General: Comfortable
HEENT: Normocephalic and Anicteric
Cardiovascular: S1-S2 and Irregular Rhythm
Respiratory: Wheeze (Bilateral, expiratory.)
GI: Soft and Non Tender
Neurology: Awake, Alert and Oriented
Skin: Warm and Dry
Labs/Micro/Reports
Lab Data
06/15/23 03:57
06/15/23 07:31
Microbiology
06/11/23 13:03 Blood/Venous Blood Culture - Preliminary
No Growth in 72 hours- Final report to follow
06/13/23 11:51 Blood/Venous Blood Culture - Preliminary
No Growth in 24 hours- Final report to follow
06/13/23 11:22 Blood/Venous Blood Culture - Preliminary
No Growth in 24 hours- Final report to follow
06/11/23 17:53 Endotracheal Respiratory Culture - Final
Haemophilus influenzae
06/11/23 17:53 Endotracheal Gram Stain - Final
06/11/23 13:03 Blood/Venous Blood Culture - Preliminary
Streptococcus species
Additional testing on request
06/11/23 13:03 Blood/Venous Gram Stain - Preliminary
06/12/23 04:54 Nose Nasal Screen MRSA (PCR) - Final
MRSA not detected - performed by PCR methodology.
--- NOTE | 2023-06-15 11:14 | PTCARENOTE ---
Yung cath d/c'd, urinal at side. Pt assisted OOB to chair with 2 physical therapists. Pt sl weak on feet, but tolerating well.
--- NOTE | 2023-06-15 11:42 | PTOTSP ---
Speech Therapy Assessment
Oral/pharyngeal swallow deemed within functional limits without overt signs of aspiration. However aspiration risk is mildly elevated given laryngeal irritation as evidenced by hoarse vocal quality and breathy cough.
Recommend
1. Regular solids and thin liquids
2. Meds with liquid as tolerated
3. Upright with meals.
4. Single sips of liquid
5. Aspiration precautions.
6. Monitor vocal quality. Consider ENT if not at baseline within a week.
[2023-06-15 12:00] LABS: Glucose - Point of Care 125 mg/dl (70-99)
[2023-06-15] MEDS: FARXIGA 10 MG PO (12:03)
[2023-06-15] MEDS: ROCEPHIN 1000 MG IV (12:03)
[2023-06-15] MEDS: STERILE WATER FOR INJECTION 10 ML IV (12:04)
[2023-06-15] MEDS: LANOXIN 125 MCG PO (12:08)
--- NOTE | 2023-06-15 12:09 | PN.CDI ---
Addendum entered and electronically signed by Henri Pope MD 06/15/23 17:48:
Sufficient documentation provided. No further comments.
Original Note:
CDI
- -
CDI:
Physician Documentation Request
Admit Date: 06/11/23 14:49
Dear Doctor Toshia,
06/12 ID saw patient and included a diagnosis of CAP.
Respiratory culture positive for Hemophilus influenzae.
Please clarify if a relationship exist between these conditions:
Yes,pneumonia is related to/associated with/due to Hemophilus influenzae.
No, pneumonia is not related to/associated with/due to Hemophilus influenzae.
Unable to determine
Use of terms such as suspected, likely, concern for, or probable (associated with a specific diagnosis that is being evaluated, monitored, or treated as if it exists) are acceptable and can be coded in the inpatient setting, when documented at the
time of discharge.
Thank you,
Devi Fernando RN, BSN
CDI Specialist
tiger text
Please use your independent medical judgment in providing your response.
--- NOTE | 2023-06-15 12:13 | PN.CDI ---
Addendum entered and electronically signed by Henri Pope MD 06/15/23 17:48:
Unable to comment
Original Note:
CDI
- -
CDI:
Physician Documentation Request
Admit Date: 06/11/23 14:49
Dear Doctor Toshia,
Patient diagnosis includes heart failure.
Echo on 06/11 reports and EF of 45-50%
06/12 cardio note states HFpEF, acute on chronic.
06/13- cardio note states 'HFmidrangeEF, acute on chronic'
06/13 hospitalist note states Acute CHF preserved EF.
In an attempt to clarify potentially conflicting documentation, please clarify the type of CHF.
Type
Systolic
Diastolic
Combined Systolic/Diastolic
Other
Use of terms such as suspected, likely, concern for, or probable (associated with a specific diagnosis that is being evaluated, monitored, or treated as if it exists) are acceptable and can be coded in the inpatient setting, when documented at the
time of discharge.
Thank you,
Devi Fernando RN, BSN
CDI Specialist
tiger text
Please use your independent medical judgment in providing your response.
--- NOTE | 2023-06-15 12:24 | PTCARENOTE ---
Speech/swallowing eval completed. Dr Nguyen and Dr Bernal updated. Pt cleared to eat 1800 diabetic diet, and thin liquids. DHT d/c'd and insulin drip d/c'd. Accu check done =127. Lunch ordered, and pt tolerating well.
--- NOTE | 2023-06-15 13:46 | PTCARENOTE ---
Diabetes Education- Met with Meek and his daughter, Dary for glucometer instructions. Known history T2DM,A1C 7.1%, taking Farxiga prior to admission. Has never monitored BS. Discussed benefit of testing in regards to foods impact on BS, medication
effectiveness. Provided with and instructions given on One Touch Verio Flex glucometer. He is aware to check with his insurance for preferred meter. Fair return demonstration, dexterity issues and became frustrated, requiring verbal cues and some
manual assistance. Result 172 mg/dl, lunch meal just finished. Education booklet with information marked regarding testing pattern and expected results. Encouraged to attend outpt DSME classes and handout given. He will need follow up education to
reinforce proper testing technique, will return on Sunday.
--- NOTE | 2023-06-15 13:52 | W.PN.HOSP.TC ---
Today's Communication/Plan
-
Speech and swallow evaluation
Diet has been advanced
Resume sotalol and metoprolol.
Stop IV insulin transition into Farxiga and basal bolus protocol.
Continue IV antibiotics
Continue steroid taper per
Physical therapy assessment.
Assessment / Plan
Assessment / Plan
IMPRESSION:
Acute hypoxic/hypercapnic respiratory failure.
VDRF
� Intubated on 06/10
Severe respiratory acidosis
Community-acquired pneumonia
Bilateral infiltrates likely attributed to community-acquired pneumonia as well as pulmonary edema.
COPD exacerbation
Acute CHF preserved EF
FORTINO
Hyperkalemia
TME secondary to CO2 retention
Conditions prior to admission:
COPD
Obstructive sleep apnea intolerant to CPAP
CHF preserved/recovered EF: HAZEL 02/22 LVEF of 55% and severe pulmonary hypertension
V-fib status post AICD
Essential hypertension
Gout
Diabetes by history not on medications at home.
CKD stage IIIa-b
Ongoing tobacco smoker.
Alcohol use disorder
PLAN:
Acute hypoxic/hypercarbic respiratory failure.
Presents with hypoxia and pulse ox of 74% on room air.
Exam with +3 pitting edema to lower extremities
Elevated pro CHF BNP
Leukocytosis
ABG consistent with severe respiratory acidosis and hypoxia
Chest x-ray with bilateral infiltrate
Differential diagnosis for above likely multifactorial suspected decompensated CHF preserved EF also with severe pulmonary hypertension, COPD exacerbation, likely bilateral pneumonia.
Failed attempt of BiPAP with persistent respiratory acidosis and required intubation
� Intubated on 06/10
- Extubated on 06/13
Respiratory status remained stable
Speech and swallow evaluation with recommendation of regular consistency diet and thin liquids
NG tube to be removed on 06/14.
Acute on chronic CHF preserved EF/pulmonary hypertension.
Updated echocardiogram 06/11: LVEF 40-50%, mild diffuse hypokinesis, mild MR, pulmonary pressure 37 mmHg
Preadmission regimen including metoprolol, Farxiga, furosemide 3 times a week, questionable compliance
IV Lasix provided on 06/10 - 06/11, 314
Follow-up volume status is extubated
COPD exacerbation
Community-acquired pneumonia
Sputum culture positive for haemophilus influenza
Bilateral infiltrates with concern for multifocal pneumonia.
Streptococcal bacteremia 1 out of 4 likely contaminant
Antibiotics consolidated to ceftriaxone.
Continue Decadron taper
Acute kidney
Cardiorenal state with
Monitor creatinine while on IV Lasix
Noted worsening azotemia 109
Yung catheter in place since 06/10
Hyperkalemia likely function of tube feedings and hyper glycemia. Continue Lokelma dose increased to 10 mg 3 times daily and follow BMP
COPD suspect exacerbation with decompensated respiratory failure.
Continue short acting bronchodilators,
Continue corticosteroids taper
Type 2 diabetes.
Hemoglobin A1c 7.1
Persistent hyperglycemia likely steroid-induced
Initiated on insulin protocol.
Extubated
Diet being advanced
Resume Farxiga
Change to basal bolus protocol with serial Accu-Cheks adjusting regimen.
Permanent atrial fibrillation
History of V-fib status post AICD PPM.
Home regimen: Metoprolol, sotalol, digoxin
Restart sotalol and metoprolol
Continue anticoagulation with Eliquis
Gout
Continue allopurinol.
Alcohol use disorder.
No evidence of DT since presentation.
Thiamine
Ongoing tobacco use disorder
Extensively counseled about quitting
Full code
DVT prophylaxis/Eliquis
Anticipated Discharge: > 48 hours
Subjective/Interval History
-
Date of Service: June 15, 2023
Objective Data
-
Labs:
Laboratory Results
06/15/23 06/15/23 06/15/23
03:57 06:32 07:31
WBC 16.4 H
Hgb 12.6 L
Hct 42.0
Plt Count 193
Sodium Cancelled Cancelled 143
Potassium Cancelled Cancelled 5.7 H
Chloride Cancelled Cancelled 101
Carbon Dioxide Cancelled Cancelled 35 H
BUN Cancelled Cancelled 95 H
Creatinine Cancelled Cancelled 2.0 H
Glucose Cancelled Cancelled 146 H
Calcium Cancelled Cancelled 8.5
Vital Signs:
Vital Signs
Temp Pulse Resp BP Pulse Ox
97.2 F 99 18 158/82 91
06/15/23 11:00 06/15/23 13:37 06/15/23 13:37 06/15/23 12:00 06/15/23 13:37
I&O
06/14/23 06/15/23 06/16/23
06:59 06:59 06:59
Intake Total 2060.2 / 2113.8 1421.1 / 1487.9 358.3 / 358.3
Output Total 2350 / 2350 2580 / 2780 625 / 625
Balance -289.8 / -236.2 -1158.9 / -1292.1 -266.7 / -266.7
Physical Exam
-
General: Well Developed and No Apparent Distress
HEENT: Normocephalic, Atraumatic and Moist Mucous Membranes
Respiratory: Clear to Auscultation
Cardiac: Regular Rhythm and S1/S2; Negative Murmur, Rub or Gallop
GI: Soft, Nontender, Nondistended and Normal Bowel Sounds; Negative Organomegaly
Rectal: Deferred by Provider
Musculoskeletal: No Clubbing, No Cyanosis and No Edema
Skin: Negative Rash
Neuro: Nonfocal/Grossly Intact
[2023-06-15] MEDS: LOKELMA 10 GRAM PO ×2 (14:20→18:13)
--- NOTE | 2023-06-15 14:26 | CM ---
CM following re: discharge planning.
Discussed in Rounds, reviewed pt's chart, met with pt and spoke to pt's spouse Keyona over the phone to update on discharge plan progress. Per Rounds meeting, pt extubated yesterday to 4L NC of O2, doing better.
PT and OT evaluations are noted - SNF level of care recommended. Both pt and his spouse are aware, expressed their disappointed feelings. pt expressed his negative feelings regarding SNF and pt stated last time he was in the hospital, was intubated
and returned back home. Pt stated he feels he will be able to return back home instead of going to rehab. Pt's spouse supports pt's response and she stated she want to see how pt improves tomorrow and then she will decide on level of care. Pt's
spouse stated she preferred pt returns back home if able and she will help as needed.
D/C plan: SNF vs VN. PT/OT will reevaluate the pt daily.
CM will follow with discharge plan updates as hospitalization progresses
--- NOTE | 2023-06-15 15:25 | W.PN.UPDATE ---
Update Note
Progress Note Update
Insulin drip discontinued
NG tube discontinued
Tolerated lunch
Will transfer to telemetry
Pulmonary will follow
[2023-06-15] MEDS: COLACE PO (15:30)
[2023-06-15] MEDS: LOPRESSOR TUBE (16:37)
[2023-06-15] MEDS: LOPRESSOR 50 MG PO (16:54)
[2023-06-15 16:56] LABS: Glucose - Point of Care 132 mg/dl (70-99)
[2023-06-15] MEDS: BETAPACE 120 MG PO (18:12)
--- NOTE | 2023-06-15 18:42 | PTCARENOTE ---
Pt cont's to do well OOB in the chair, was able to walk to the bathroom with walker, had a BM and had voided this afternoon. Pt wants to stay in chair for now. Pt Gabe was updated and order placed for pt to go to tele bed when available. O2 95%
sat on 2l NC.
[2023-06-15] MEDS: COLACE 100 MG PO (19:59)
[2023-06-15] MEDS: TOPROL XL 50 MG PO (19:59)
[2023-06-15] MEDS: ELIQUIS 5 MG PO (19:59)
--- NOTE | 2023-06-15 20:00 | PTCARENOTE ---
Received pt. at 1900. Pt. awake, alert, and oriented. Denies pain/discomfort at this time. Afebrile. Heart rhythm known Afib. Blood pressure normotensive. Pt. on 2L nasal cannula. Lungs sound diminished. Pt. currently on 1800 calorie diabetic diet.
Voiding in urinal without issue. Skin as documented. Vital signs stable at this time.
[2023-06-15] MEDS: NOVOLOG FLEXPEN SC (20:50)
--- NOTE | 2023-06-15 22:00 | PTCARENOTE ---
Received pt from ICU Pt. awake, alert, and oriented- anxious at times. VSS- no complaints of pain- no changes in assessment.
[2023-06-16] MEDS: BENADRYL 25 MG PO (02:54)
[2023-06-16 03:28] VITALS: BP 155/86
[2023-06-16 06:00] VITALS: BMI 26.7
[2023-06-16] MEDS: DECADRON IV ×2 (06:17→14:29)
[2023-06-16] MEDS: LOKELMA PO ×2 (06:18→06:45)
--- NOTE | 2023-06-16 06:45 | PTCARENOTE ---
Pt does not want to take IV Decadron and his Lokelma for the morning, pt stating 'we are trying to kill him'- educated pt- will continue to educate
[2023-06-16 07:20] VITALS: BP 168/84
[2023-06-16 07:23] LABS: Glucose - Point of Care 116 mg/dl (70-99)
--- NOTE | 2023-06-16 07:33 | PTCARENOTE ---
Patient states that he wants to leave AMA today and states he is refusing rehab. Patient refusing to use walker and is getting up on own. Reinforced fall precautions and need to use walker.
[2023-06-16] MEDS: DUONEB 3 ML INH ×3 (07:57→20:36)
[2023-06-16] MEDS: PULMICORT 0.5 MG INH ×2 (07:57→20:36)
--- NOTE | 2023-06-16 08:12 | W.PN.HOSP.TC ---
Addendum entered and electronically signed by Obdulio Stahl MD 06/17/23 13:10:
Patient is in need of oxygen on exertion due to pulse oximetry of 92% on room air at rest; 86% on room air with exertion.
Patient was placed on 2L O2 via nasal cannula with saturation of 94%. Oxygen will help to improve hypoxemia.
Patient is mobile within the home. Albuterol therapy has been discussed and is ineffective in treating hypoxemia-related symptoms.
Oxygen will improve the patient's symptoms.
Original Note:
Today's Communication/Plan
-
Potassium 5.9 today, EKG with no changes, change diet to low potassium
Patient refused lokelma this morning, counseled he must take it 3 times a day
Start lactulose 20 g 3 times daily
Ordered-oxycodone 10 mg 3 times daily as needed that he says he takes at home
Continue Rocephin, steroid taper
Assessment / Plan
Assessment / Plan
IMPRESSION:
Acute hypoxic/hypercapnic respiratory failure.
VDRF
� Intubated on 06/10
Severe respiratory acidosis
Community-acquired pneumonia
Bilateral infiltrates likely attributed to community-acquired pneumonia as well as pulmonary edema.
COPD exacerbation
Acute CHF preserved EF
FORTINO
Hyperkalemia
TME secondary to CO2 retention
Conditions prior to admission:
COPD
Obstructive sleep apnea intolerant to CPAP
CHF preserved/recovered EF: HAZEL 02/22 LVEF of 55% and severe pulmonary hypertension
V-fib status post AICD
Essential hypertension
Gout
Diabetes by history not on medications at home.
CKD stage IIIa-b
Ongoing tobacco smoker.
Alcohol use disorder
PLAN:
Acute hypoxic/hypercarbic respiratory failure.
Presents with hypoxia and pulse ox of 74% on room air.
Exam with +3 pitting edema to lower extremities
Elevated pro CHF BNP
Leukocytosis
ABG consistent with severe respiratory acidosis and hypoxia
Chest x-ray with bilateral infiltrate
Differential diagnosis for above likely multifactorial suspected decompensated CHF preserved EF also with severe pulmonary hypertension, COPD exacerbation, likely bilateral pneumonia.
Failed attempt of BiPAP with persistent respiratory acidosis and required intubation
� Intubated on 06/10
- Extubated on 06/13
Respiratory failure improved, currently requiring 2 L of oxygen, does not wear oxygen at home�continue to wean
Speech and swallow evaluation with recommendation of regular consistency diet and thin liquids
NG tube to be removed on 06/14.
Acute on chronic CHF preserved EF/pulmonary hypertension.
Updated echocardiogram 06/11: LVEF 40-50%, mild diffuse hypokinesis, mild MR, pulmonary pressure 37 mmHg
Preadmission regimen including metoprolol, Farxiga, furosemide 3 times a week, questionable compliance
IV Lasix provided on 06/10 - 06/11, 314
Follow-up volume status is extubated
COPD exacerbation
Community-acquired pneumonia
Sputum culture positive for haemophilus influenza
Bilateral infiltrates with concern for multifocal pneumonia.
Streptococcal bacteremia 1 out of 4 likely contaminant
Antibiotics consolidated to ceftriaxone.
Continue Decadron taper
Acute kidney injury superimposed on stage IIIa chronic kidney disease
Cardiorenal state with
Monitor creatinine while on IV Lasix
Noted worsening azotemia 109
Yung catheter in place since 06/10
Hyperkalemia
-EKG 06/15 no changes
-Changed to low potassium diet, patient refused morning dose of Lokelma
-Counseled patient that he must take this
COPD suspect exacerbation with decompensated respiratory failure.
Continue short acting bronchodilators,
Continue corticosteroids taper
Type 2 diabetes.
Hemoglobin A1c 7.1
Persistent hyperglycemia likely steroid-induced
Initiated on insulin protocol.
Extubated
Diet being advanced
Resume Farxiga
Change to basal bolus protocol with serial Accu-Cheks adjusting regimen.
Permanent atrial fibrillation
History of V-fib status post AICD PPM.
Home regimen: Metoprolol, sotalol, digoxin
Restart sotalol and metoprolol
Continue anticoagulation with Eliquis
Gout
Continue allopurinol.
Alcohol use disorder.
No evidence of DT since presentation.
Thiamine
Ongoing tobacco use disorder
Extensively counseled about quitting
DVT prophylaxis�Eliquis
Full code
Physical Exam
General: No acute distress
HEENT: Normocephalic, Atraumatic, EOMI, MMM
Respiratory: Scattered rhonchi and wheezing
Cardiac: Normal S1/S2, Regular Rate and Rhythm
GI: Soft, Nontender, Nondistended, Normal Bowel Sounds
Extremities: No Clubbing, Cyanosis
Bilateral lower extremity edema noted
Neuro: Nonfocal/Grossly Intact
Psych: Calm, Cooperative
Derm: No Visible lesions
Anticipated Discharge: > 48 hours
Subjective/Interval History
-
Date of Service: June 16, 2023
Patient denies dyspnea with activity, denies shortness of breath. Continues to have a cough. No chest pain, no shortness of breath. No fever, no vomiting.
Objective Data
-
Labs:
Laboratory Results
06/16/23
06:00
WBC Pending
Hgb Pending
Hct Pending
Plt Count Pending
Sodium Pending
Potassium Pending
Chloride Pending
Carbon Dioxide Pending
BUN Pending
Creatinine Pending
Glucose Pending
Calcium Pending
Vital Signs:
Vital Signs
Temp Pulse Resp BP Pulse Ox
97.9 F 96 20 168/84 100
06/16/23 07:20 06/16/23 08:00 06/16/23 08:00 06/16/23 07:20 06/16/23 08:00
I&O
06/15/23 06/16/2324
06:59 06:59 06:59
Intake Total 1421.1 / 1487.9 1408.3 / 1408.3 480 / 480
Output Total 2580 / 2780 1475 / 1475 900 / 900
Balance -1158.9 / -1292.1 -66.7 / -66.7 -420 / -420
[2023-06-16 09:22] LABS: % Basophils 0.2 % (0-2); % Monocytes 6.4 % (1.7-9.3); % Neutrophils 87.4 % (42.2-75.2); Absolute Immature Granulocytes 0.6 10^3/uL (0-0.05); Absolute Lymphocytes 0.6 10^3/uL (1.2-3.4); Absolute Monocytes 1.3 10^3/uL (0.1-0.6); Absolute Neutrophils 17.1 10^3/uL (1.4-6.5); Hematocrit 41.6 % (39.0-52.0); Hemoglobin 12.5 g/dL (13.0-18.0); Mean Corpuscular Hgb 26.7 pg (27.0-31.0); Mean Corpuscular Volume 88.7 fL (80.0-94.0); Mean Platelet Volume 9.5 fL (7.4-10.4); Nucleated Red Blood Cells % 0.4 % (-); Platelet Count 214 10^3/uL (130-400); Red Blood Cell Count 4.69 10^6/uL (4.70-6.10); Red Cell Dist. Width 17.3 % (11.5-14.5); White Blood Cell Count 19.6 10^3/uL (4.8-10.8)
[2023-06-16] MEDS: COLACE PO ×2 (09:44→19:47)
[2023-06-16] MEDS: FOLVITE 1 MG PO (09:46)
[2023-06-16] MEDS: TOPROL XL 50 MG PO ×2 (09:46→19:47)
[2023-06-16] MEDS: FARXIGA 10 MG PO (09:47)
[2023-06-16] MEDS: VITAMIN B1 100 MG PO ×2 (09:47→19:47)
[2023-06-16] MEDS: PROTONIX 40 MG PO (09:47)
[2023-06-16] MEDS: ZYLOPRIM 100 MG PO (09:47)
[2023-06-16] MEDS: ELIQUIS 5 MG PO ×2 (09:48→19:47)
[2023-06-16 09:50] LABS: Blood Urea Nitrogen 94 mg/dl (9-20); Calcium 8.4 mg/dl (8.4-10.2); Carbon Dioxide 30 mmol/L (22-30); Chloride 99 mmol/L (98-107); Estimated Creatinine Clearance 55 ml/min; Glucose 161 mg/dl (70-99); Potassium 5.9 mmol/L (3.5-5.1); Sodium 136 mmol/L (135-145); Triglycerides 203 mg/dl (10-149); eGFR 51.67
--- NOTE | 2023-06-16 10:01 | W.PN.ID1 ---
Date of Service
Date of Service: June 16, 2023
Today's Communication
Tomorrow is last day of ceftriaxone.
ID will sign off. Call pen.
Assessment / Plan
# CAP
- Sputum cx :Haemophilus influenzae, beta-lactamase neg
- To complete ceftriaxone tomorrow ( 7d total abx course)
# Strep species bacteremia, 1 out of 4 bottles
- Likely contaminant
- Repeat blood cx negatve
- No need to treat at this time.
# AECOPD
- on steroid
- on doxycycline as per pulm.
# Leukocytosis due to steroid.
# Acute on chronic hypoxemic/hypercapnic resp failure
- Extubated
# Tobacco use disorder
- Will benefit from smoking cessation
ID will sign off.
#Additional Past Medical History:
DM
COPD
Permanent Afib
hx V-fib cardiac arrest
HFpEF
AICD
Sleep apnea, intolerant to CPAP
gout
CKD3
PAD
Chief Complaint
-: Pneumonia
Subjective / Review of Systems
c/o insomnia due to steroid.
Wants to stop steroid.
Vital Signs / Physical Exam
Vital Signs
Vital Signs
Temp Pulse Resp BP Pulse Ox
97.9 F 96 20 168/64 100
06/16/23 07:20 06/16/23 09:46 06/16/23 08:00 06/16/23 09:46 06/16/23 08:00
Physical Exam
Constitutional: No Acute Distress
Pulmonary: Clear
Gastrointestinal: Soft, Non Tender and Non Distended
Extremities: Venous Insufficiency
Objective Data
Lab Data
Lab Results
06/16/23 09:04
06/16/23 09:04
PT 19.4 Sec (11.4-14.6) H 06/11/23 16:10
INR 1.66 06/11/23 16:10
APTT 39.0 Sec (23.4-35.0) H 06/11/23 16:10
Estimated Creat Clear 55 ml/min 06/16/23 09:04
Lactic Acid Cancelled 06/11/23 16:45
Total Bilirubin 1.0 mg/dl (0.2-1.3) 06/11/23 11:56
GGT 99 U/L (15-73) H 06/11/23 16:10
AST 30 U/L (17-59) 06/11/23 11:56
ALT 21 U/L (0-50) 06/11/23 11:56
Alkaline Phosphatase 149 U/L (38-126) H 06/11/23 11:56
Most recent labs reviewed.
Micro Results:
06/11/23 13:03 Blood Culture - Preliminary
Blood/Venous No Growth in 4 days- Final report to follow
06/13/23 11:51 Blood Culture - Preliminary
Blood/Venous No Growth in 48 hours- Final report to follow
06/13/23 11:22 Blood Culture - Preliminary
Blood/Venous No Growth in 48 hours- Final report to follow
06/11/23 17:53 Respiratory Culture - Final
Endotracheal Haemophilus influenzae
Gram Stain - Final
06/11/23 13:03 Blood Culture - Preliminary
Blood/Venous Streptococcus species
Additional testing on request
Gram Stain - Preliminary
06/12/23 04:54 Nasal Screen MRSA (PCR) - Final
Nose MRSA not detected - performed by PCR methodology.
06/11/23 CXR: Bibasilar airspace opacities are remonstrated.
06/11/23 CXR: Moderate to severe bibasilar airspace disease (right worse than left), progressed from prior.
06/12/23 CXR: Moderate right basilar parenchymal airspace disease/pneumonia, improved but unresolved.�
[2023-06-16] MEDS: LOKELMA 10 GRAM PO ×3 (10:13→18:03)
[2023-06-16] MEDS: ROXICODONE 10 MG PO ×3 (10:13→19:51)
[2023-06-16 10:45] VITALS: BP 146/87
--- NOTE | 2023-06-16 10:50 | PTCARENOTE ---
Patient with potassium level 5.9 on morning labs. aware. Flor refused at 0600. Gave a dose and retimed medication. EKG done - patient in Afib which is his baseline. Denies symptoms.
[2023-06-16 11:52] LABS: Glucose - Point of Care 131 mg/dl (70-99)
[2023-06-16] MEDS: ROCEPHIN 1000 MG IV (12:14)
[2023-06-16] MEDS: DUPHALAC/CHRONULAC 20 GRAMS PO ×2 (12:14→16:00)
[2023-06-16] MEDS: STERILE WATER FOR INJECTION 10 ML IV (12:14)
--- NOTE | 2023-06-16 14:00 | PTCARENOTE ---
Patient continues to take off oxygen and ambulate in room without ringing for assistance. Patient is not using walker. Reinforced fall precautions but patient is not compliant.
--- NOTE | 2023-06-16 15:20 | W.PN.PUL3 ---
Today's Communication / Plan
-
Continue nebulizers while in the hospital
Transition to prednisone
Inhalers upon discharge
Discontinue BiPAP per patient request
Home oxygen assessment tomorrow
Hyperkalemia management per primary team
From the pulmonary perspective hopefully discharge in the next 24 hours.
Assessment
-
62-year-old man with history of COPD, admitted to the hospital with shortness of breath, required intubation and mechanical ventilation due toHypercapnic respiratory failure. Extubated and on supplemental oxygen. Patient transferred to the floors
06/15/2023.
Pulmonary following for for hypoxemic respiratory failure/acute exacerbation of COPD/pneumonia
Acute on chronic hypercapnic respiratory failure requiring mechanical ventilation, acute exacerbation of COPD.
ABG 06/11/2023: 7.06, 94/132
Emergently intubated 06/11/2023
Extubated 06/14/2023.
Chest x-ray: Bilateral infiltrates.
Increased proBNP
Differential diagnosis includes pneumonia ( has leukocytosis) and/or acute on chronic heart failure with preserved ejection fraction.
HAZEL:01/2023 :Normal left ventricular systolic function. Left ventricular ejection fraction
�is 55%.Mild to moderate mitral regurgitation.Moderate tricuspid regurgitation.
Suspect chronic cor pulmonale due to underlying COPD
Patient failed BiPAP overnight, ABGs without significant improvement, patient is intubated and mechanically ventilated.
Patient is extubated 06/14/2023.� Hemodynamically condition stable.� Lung exam has improved.
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
Dosed on hospital admission 04/2023: Hypercapnic respiratory failure due to COPD exacerbation.
COPD: symbicort. Patient states he is not using it or any BD or O2 at home
FLAVIO: PSG 6 y ago, once, rec CPAP, used only briefly s O2 and could not adapt, ended up returning equipment
AFib on apixaban, metoprolol, sotalol, digoxin
HFrecoveredEF on HAZEL 02-16-23 (EF 45=5% on TTE )
V-fib cardiac arrest, s/p ICD/PM
MReg
HTN
Gout
Arthritis
DM
CKD
Peripheral artery disease, s/p iliac stent
Back surgery
Smoker: 1 ppd for 49 y, down to 7 cig/d for last 2 m
ETOH use: beer, weekly intoxication for 49 y till 3 m ago when quit ETOH
Assessment and plan:
Patient admitted with acute severe hypercapnic respiratory failure, acute onset change in mental status.� Required emergent intubation 06/11/2023, does not respond to BiPAP therapy.
Differentials might be infectious etiology pneumonia/with increased proBNP heart failure is a possibility on top of his underlying COPD with acute exacerbation. It is noted in the past that the patient has refused oxygen therapy and has history of
medical noncompliance.�
-
Overall clinically improving.
Patient extubated-06/14/2023.
-
Wean oxygen down as able. Maintain pulse ox above 90%. Home oxygen assessment closer to discharge.
Home oxygen assessment tomorrow. Currently on 2 L.
Patient [place] without significant shortness of breath.
-
Continue secretion clearance intervention
Acapella device
Acute exacerbation of COPD: Improved bronchospasm.
Will transition to prednisone 40 mg daily 06/16/2023. Decrease by 10 mg every 72 hours to off.
Continue Pulmicort. While in the hospital
DuoNeb continue for now, 4 times a day. While in the hospital
Transition to inhalers upon discharge. Usually on Trelegy.
Will discontinue BiPAP patient does not like it here in the hospital.
-
Sputum culture with haemophilus influenza.
MRSA screen negative.
Continue ceftriaxone and complete total 7 days of antibiotics as per ID.
Blood culture positive with Streptococcus species
Repeat cultures negative
Defer antibiotics to infectious disease.
Chest x-ray 06/14/2023: Reviewed, mild right lower lobe pneumonia.� Improved compared to prior.� There is mild left lower lobe abnormality
-
Heart failure with preserved ejection fraction.��proBNP elevated to 7490.
Negative cardiac troponin.
Cardiology following
Status post diuresis.
-
-Acute kidney injury, improved. Hyperkalemia management per primary team.
-
History of obstructive sleep apnea: Patient did not tolerate CPAP at home
-
Elevated blood sugars, improve as steroids were tapered.
Management per primary team
-
-Permanent atrial fibrillation
Sotalol resumed today as per cardiolog rate improved
Remains on anticoagulation
Management per primary team
continue with metoprolol.
Anticoagulation with apixaban
-DVT prophylaxis-on apixaban.
Subjective Data
-
Date of Service:
Date of Service: June 16, 2023
Chief Complaint: Pulmonary Follow Up (Acute exacerbation of COPD/pneumonia)
Subjective:
Patient continues to report occasional coughing.
Phlegm production improved
Chronic wheezing.
Overall he feels better.
Review of Systems
General: Fever (n)
Cardiopulmonary: Dyspnea (Improved), Cough ( improved) and Wheezing
Objective Data
Data Reviewed
Vital Signs / I&O / Oxygen:
Vital Signs
Temp Pulse Resp BP Pulse Ox
98.0 F 102 18 146/87 95
06/16/23 10:45 06/16/23 10:45 06/16/23 10:45 06/16/23 10:45 06/16/23 13:58
Intake and Output
06/15/23 06/16/23 06/17/23
06:59 06:59 06:59
Intake Total 1421.1 / 1487.9 1408.3 / 1408.3 480 / 480
Output Total 2580 / 2780 1475 / 1475 900 / 900
Balance -1158.9 / -1292.1 -66.7 / -66.7 -420 / -420
SaO2 [CPAP/PSV] 94
SaO2 [A/C] 97
SaO2 95
Nasal Cannula flow liters per 2
minute
Physical Exam
General: Respiratory Distress (n) and Comfortable
HEENT: Normocephalic
Cardiovascular: S1-S2 and Irregular Rhythm
Respiratory: Wheeze (Chronic)
GI: Soft and Non Distended
Neurology: Awake and Alert
Labs/Micro/Reports
Lab Data
06/16/23 09:04
06/16/23 09:04
Microbiology
06/11/23 13:03 Blood/Venous Blood Culture - Final
No Growth - Final Report
06/13/23 11:51 Blood/Venous Blood Culture - Preliminary
No Growth in 72 hours- Final report to follow
06/13/23 11:22 Blood/Venous Blood Culture - Preliminary
No Growth in 72 hours- Final report to follow
06/11/23 17:53 Endotracheal Respiratory Culture - Final
Haemophilus influenzae
06/11/23 17:53 Endotracheal Gram Stain - Final
[2023-06-16 15:25] VITALS: BP 138/83
[2023-06-16 16:59] LABS: Glucose - Point of Care 89 mg/dl (70-99)
[2023-06-16] MEDS: BETAPACE 120 MG PO (18:03)
[2023-06-16 19:30] VITALS: BP 127/82
[2023-06-16] MEDS: DUPHALAC/CHRONULAC PO (19:57)
[2023-06-16 21:45] LABS: Glucose - Point of Care 88 mg/dl (70-99)
[2023-06-16 23:45] VITALS: BP 135/89
[2023-06-17 03:55] VITALS: BP 133/76
[2023-06-17] MEDS: LOKELMA 10 GRAM PO (05:16)
[2023-06-17 06:00] VITALS: BMI 27.0
[2023-06-17] MEDS: ROXICODONE 10 MG PO ×2 (06:34→12:13)
[2023-06-17 07:17] VITALS: BP 130/66
[2023-06-17 07:17] LABS: Glucose - Point of Care 79 mg/dl (70-99)
[2023-06-17] MEDS: DUONEB INH ×3 (07:20→15:27)
[2023-06-17] MEDS: PULMICORT INH (07:24)
[2023-06-17 07:43] LABS: % Basophils 0.1 % (0-2); % Eosinophils 0.8 % (0-6); % Immature Granulocytes 1.6 % (0-0.5); % Lymphocytes 9.4 % (20.5-51.1); % Monocytes 10.6 % (1.7-9.3); % Neutrophils 77.5 % (42.2-75.2); Absolute Eosinophils 0.1 10^3/uL (0-0.7); Absolute Immature Granulocytes 0.2 10^3/uL (0-0.05); Absolute Lymphocytes 1.4 10^3/uL (1.2-3.4); Absolute Monocytes 1.5 10^3/uL (0.1-0.6); Absolute Neutrophils 11.2 10^3/uL (1.4-6.5); Hematocrit 42.4 % (39.0-52.0); Hemoglobin 12.8 g/dL (13.0-18.0); Mean Corp Hgb Conc. 30.2 g/dL (33.0-37.0); Mean Corpuscular Hgb 27.2 pg (27.0-31.0); Mean Platelet Volume 10.3 fL (7.4-10.4); Nucleated Red Blood Cells % 0.2 % (-); Platelet Count 186 10^3/uL (130-400); Red Blood Cell Count 4.71 10^6/uL (4.70-6.10); Red Cell Dist. Width 17.1 % (11.5-14.5); White Blood Cell Count 14.5 10^3/uL (4.8-10.8)
[2023-06-17 08:10] LABS: Blood Urea Nitrogen 94 mg/dl (9-20); Calcium 8.4 mg/dl (8.4-10.2); Carbon Dioxide 35 mmol/L (22-30); Chloride 94 mmol/L (98-107); Estimated Creatinine Clearance 55 ml/min; Glucose 66 mg/dl (70-99); Potassium 4.8 mmol/L (3.5-5.1); Sodium 137 mmol/L (135-145); eGFR 51.67
--- NOTE | 2023-06-17 08:10 | W.PN.HOSP.TC ---
Addendum entered and electronically signed by Obdulio Stahl MD 06/17/23 14:33:
Patient has had multiple readmissions with chief complaint of shortness of breath and respiratory failure. The patient has a PaC02 of 84 on 2 liters of oxygen. The patient reports he is on oxygen continuously. The patient reports he gets short of
breath with minimal exertion. Due to the patients COPD and hypoventilation, the patient is at risk of worsening Chronic Respiratory failure. I have considered BiLevel, BiLevel ST, and BiLevel Vaps therapy and they have all been ruled out due to the
patients worsening condition. The patient now requires a unique mode of ventilation not offered on less costly options. The patient requires a device that will not fail in the event of a power failure and is also portable for mobility within the
home when needed. Due to the patients worsening condition, I am prescribing Non-Invasive Ventilation therapy to decrease the chance of continued unplanned expensive medical encounters including the physician office visits, emergency/urgent care
treatment and hospital readmissions.
Case management setting patient up with BiPAP.
Original Note:
Today's Communication/Plan
-
Today the last day of Rocephin as per ID
Cleared by pulmonology for discharge on steroid taper
He needs oxygen 2 L with activity�case management setting up
Also will be set up with home P T
Assessment / Plan
Assessment / Plan
IMPRESSION:
Acute hypoxic/hypercapnic respiratory failure.
VDRF
� Intubated on 06/10
Severe respiratory acidosis
Community-acquired pneumonia
Bilateral infiltrates likely attributed to community-acquired pneumonia as well as pulmonary edema.
COPD exacerbation
Acute CHF preserved EF
FORTINO
Hyperkalemia
TME secondary to CO2 retention
Conditions prior to admission:
COPD
Obstructive sleep apnea intolerant to CPAP
CHF preserved/recovered EF: HAZEL 02/22 LVEF of 55% and severe pulmonary hypertension
V-fib status post AICD
Essential hypertension
Gout
Diabetes by history not on medications at home.
CKD stage IIIa-b
Ongoing tobacco smoker.
Alcohol use disorder
PLAN:
Acute hypoxic/hypercarbic respiratory failure.
Presents with hypoxia and pulse ox of 74% on room air.
Exam with +3 pitting edema to lower extremities
Elevated pro CHF BNP
Leukocytosis
ABG consistent with severe respiratory acidosis and hypoxia
Chest x-ray with bilateral infiltrate
Differential diagnosis for above likely multifactorial suspected decompensated CHF preserved EF also with severe pulmonary hypertension, COPD exacerbation, likely bilateral pneumonia.
Failed attempt of BiPAP with persistent respiratory acidosis and required intubation
� Intubated on 06/10
- Extubated on 06/13
Respiratory failure improved, currently on RA
He needs 2 L of oxygen with activity, case management setting up
Speech and swallow evaluation with recommendation of regular consistency diet and thin liquids
NG tube to be removed on 06/14.
Acute on chronic CHF preserved EF/pulmonary hypertension.
Updated echocardiogram 06/11: LVEF 40-50%, mild diffuse hypokinesis, mild MR, pulmonary pressure 37 mmHg
Preadmission regimen including metoprolol, Farxiga, furosemide 3 times a week, questionable compliance
IV Lasix provided on 06/10 - 06/11, 314
Follow-up volume status is extubated
COPD exacerbation
Community-acquired pneumonia
Sputum culture positive for haemophilus influenza
Bilateral infiltrates with concern for multifocal pneumonia.
Streptococcal bacteremia 1 out of 4 likely contaminant
He has completed a full course of Rocephin
Status post IV steroids, cleared by pulmonology for discharge on prednisone taper
Resume Trelegy upon discharge
Acute kidney injury superimposed on stage IIIa chronic kidney disease
Cardiorenal state with
Monitor creatinine while on IV Lasix
Noted worsening azotemia 109
Yung catheter in place since 06/10
Hyperkalemia
-EKG 06/15 no changes
-Resolved on Lokelma, potassium 4.8 today
COPD suspect exacerbation with decompensated respiratory failure.
Continue short acting bronchodilators,
Continue corticosteroids taper
Type 2 diabetes.
Hemoglobin A1c 7.1
Persistent hyperglycemia likely steroid-induced
Initiated on insulin protocol.
Extubated
Diet being advanced
Resume Farxiga
Change to basal bolus protocol with serial Accu-Cheks adjusting regimen.
Permanent atrial fibrillation
History of V-fib status post AICD PPM.
Home regimen: Metoprolol, sotalol, digoxin
Restarted sotalol and metoprolol
Continue anticoagulation with Eliquis
Gout
Continue allopurinol.
Alcohol use disorder.
No evidence of DT since presentation.
Thiamine
Ongoing tobacco use disorder
Extensively counseled about quitting
DVT prophylaxis�Eliquis
Full code
Physical Exam
General: No acute distress
HEENT: Normocephalic, Atraumatic, EOMI, MMM
Respiratory: Scattered rhonchi and wheezing
Cardiac: Normal S1/S2, Regular Rate and Rhythm
GI: Soft, Nontender, Nondistended, Normal Bowel Sounds
Extremities: No Clubbing, Cyanosis
Bilateral lower extremity edema noted
Neuro: Nonfocal/Grossly Intact
Psych: Calm, Cooperative
Derm: No Visible lesions
Anticipated Discharge: Today
Subjective/Interval History
-
Date of Service: June 16, 2023
Patient ambulated to the bathroom without any problems breathing. No dyspnea with activity. Cough continues to improve. No chest pain. He had a bowel movement.
Objective Data
-
Labs:
Laboratory Results
06/16/23
09:04
WBC 19.6 H
Hgb 12.5 L
Hct 41.6
Plt Count 214
Sodium 136
Potassium 5.9 H
Chloride 99
Carbon Dioxide 30
BUN 94 H
Creatinine 1.5 H
Glucose 161 H
Calcium 8.4
Vital Signs:
Vital Signs
Temp Pulse Resp BP Pulse Ox
98.0 F 102 18 146/87 97
06/16/23 10:45 06/16/23 10:45 06/16/23 10:45 06/16/23 10:45 06/16/23 10:45
I&O
06/15/23 06/16/23 06/17/23
06:59 06:59 06:59
Intake Total 1421.1 / 1487.9 1408.3 / 1408.3 480 / 480
Output Total 2580 / 2780 1475 / 1475 900 / 900
Balance -1158.9 / -1292.1 -66.7 / -66.7 -420 / -420
[2023-06-17] MEDS: COLACE PO (09:32)
[2023-06-17] MEDS: ELIQUIS 5 MG PO (09:33)
[2023-06-17] MEDS: FOLVITE 1 MG PO (09:33)
[2023-06-17] MEDS: DELTASONE 40 MG PO (09:33)
[2023-06-17] MEDS: DUPHALAC/CHRONULAC PO (09:33)
[2023-06-17] MEDS: VITAMIN B1 100 MG PO (09:34)
[2023-06-17] MEDS: ZYLOPRIM 100 MG PO (09:34)
[2023-06-17] MEDS: PROTONIX 40 MG PO (09:34)
[2023-06-17] MEDS: FARXIGA 10 MG PO (09:34)
[2023-06-17] MEDS: TOPROL XL 50 MG PO ×2 (09:34→14:16)
[2023-06-17 11:10] VITALS: BP 139/84
[2023-06-17 12:01] LABS: Glucose - Point of Care 109 mg/dl (70-99)
[2023-06-17] MEDS: ROCEPHIN 1000 MG IV (12:13)
--- NOTE | 2023-06-17 12:22 | PTOTSP ---
ST Tx session
Pt received awake/alert sitting up on edge of bed with spouse at the bedside. Reports vocal quality improving however not at baselinle, spouse agrees. Education re: seeking outpatient follow up with ENT if voice does not return to baseline after d/c
from hospital.
Self fed trials of regular solids/thin liquids. Demo grossly functional mastication and bolus was orally cleared. Thin liquids by straw sip swallow appears prompt. No overt s/sx of aspiration observed.
Recommend
1. Continue regular solids/thin liquids
2. Standard aspiration precautions
3. Meds oral with sips of water
4. No further acute ACCESSIBILITY LIFT TECHNICIAN needs. ACCESSIBILITY LIFT TECHNICIAN signing off please reconsult as needed
[2023-06-17 12:30] VITALS: BP 159/90; PULSE 118; O2SAT 96
[2023-06-17 12:50] VITALS: BP 159/90; PULSE 116; O2SAT 94
--- NOTE | 2023-06-17 14:01 | W.DCSUMMARY ---
Discharge Summary
Discharge Data
Date of Admission: 06/11/23
Date of Discharge: 06/17/23
-
Pending Results: No
Hospital Course
Discharge diagnoses:
Acute hypoxic and hypercapnic respiratory failure requiring intubation
Severe respiratory acidosis
Community-acquired pneumonia
Acute on chronic obstructive pulmonary disease exacerbation
Acute heart failure with a preserved ejection fraction
Acute kidney injury
Hyperkalemia
Acute hypercapnic encephalopathy
Cigarette nicotine dependency
Type 2 diabetes
Gout
History of ventricular fibrillation arrest status post defibrillator placement
Acute kidney injury superimposed on stage III chronic kidney disease
Alcohol use disorder
Consults: Cardiology, pulmonology/environmental compliance inspector
Hospital course:
62-year-old male with a past medical history of VF arrest status post ICD, chronic HFpEF, COPD, chronic tobacco abuse, type 2 diabetes mellitus, and permanent atrial fibrillation on Eliquis was admitted with acute hypoxic and respiratory failure
secondary to pneumonia, COPD exacerbation. Patient was intubated, and seen with the environmental compliance inspector in the ICU. He was treated with IV steroids, IV antibiotics. He was able to be extubated, and weaned to room air.
Sputum cultures grew out haemophilus influenza, beta-lactamase negative. Patient was seen in conjunction with ID, who recommended IV Rocephin. Patient completed a full course of Rocephin.
For his COPD exacerbation, he was treated with IV steroids and doxycycline. He completed the doxycycline. Pulmonology recommends discharge on a prednisone taper.
Patient had acute kidney injury superimposed on stage III chronic kidney disease. His FORTINO is due to sepsis. His sotalol and Farxiga were initially held. His creatinine peaked at 2.6, and improved to 1.5 on the day of discharge.
Patient was seen in conjunction with cardiology, for acute heart failure with a preserved ejection fraction. He received IV Lasix, but does not need to be discharged on any oral Lasix. Patient has paroxysmal atrial fibrillation and is on Eliquis.
He was resumed on his Eliquis, metoprolol, and sotalol.
Patient's hospital course was complicated by hyperkalemia. He was treated with Lokelma, his potassium was normal at 4.8 on the day of discharge.
Patient continues to smoke, cigarette nicotine cessation counseling was provided.
Home oxygen evaluation was performed, he needs to wear 2 L of oxygen with activity. He is also set up with a home BiPAP.
Patient's multiple medical conditions have been optimized. He will be discharged home with home PT, oxygen 2L to be worn with activity, and BiPAP. He needs to follow-up with his primary care doctor in 1 week, as well as his usual customer sales advisor and
cruise counselor in 2-3 weeks.
Disposition: Home with home PT
Discharge planning: Required 50 minutes
Discharge Plan
-
Patient Disposition: Home with Home Care
Discharge Diagnosis/Procedures: Acute hypoxic and hypercapnic respiratory failure status post extubation, pneumonia, chronic obstructive pulmonary disease exacerbation, congestive heart failure, acute kidney injury, hyperkalemia, permanent atrial
fibrillation, alcohol use disorder, cigarette nicotine dependency, type 2 diabetes
Condition: Fair
Diet: Low Fat, Low Cholesterol and Diabetic, Carb Controlled
Activity: As tolerated
Other Services: PT and OT
Activity Restrictions/Additional Instructions:
Your oxygenation drops when you walk. You need to wear oxygen 2 L with activity. Follow-up with your customer sales advisor, and they will wean you.
Recommend you continue to abstain from smoking cigarettes.
Take your steroid taper as directed, follow-up with your primary care doctor in 1 week, and pulmonology in 2-3 weeks..
Instructions: *CBC Heart Failure Instructions
Referrals:
Александр Rowe MD [Active] - in two to three weeks
Maycol Dhaliwal MD [Family Provider] - in one week
Prescriptions:
New
prednisone 10 mg Tablet
See Rx Instructions .ROUTE .COMPLEX Qty: 30 0RF
Rx Instructions:
Take By Mouth:
40 mg daily x3 days, 30 mg daily x3 days,
20 mg daily x3 days, 10 mg daily x3 days.
polyethylene glycol 3350 17 gram/dose powder
17 g PO DAILY Qty: 510 0RF
Continued
allopurinol 100 mg Tablet
100 mg PO DAILY
sotalol 120 mg Tablet
120 mg PO QPM
dapagliflozin propanediol [Farxiga] 10 mg Tablet
10 mg PO DAILY
digoxin 0.125 MG tablet
0.125 mg PO MOWEFR
metoprolol succinate 100 mg Tablet Extended Release 24 Hr
100 mg PO BID Qty: 60 0RF
Eliquis 5 MG tablet
5 mg PO BID Qty: 0 0RF
hydrocodone-acetaminophen 10-325 mg Tablet
1 tab PO Q4HPRN PRN (Reason: severe pain)
Trelegy Ellipta 100-62.5-25 mcg Blister With Device
1 inh INHALATION R DAILY
furosemide 40 mg tablet
20 mg PO MOWEFR
guaifenesin 600 mg tablet extended release 12hr
600 mg PO [id number] PRN (Reason: cough)
albuterol sulfate 2.5 mg /3 mL (0.083 %) Solution For Nebulization
2.5 mg INHALATION R Q4HPRN PRN (Reason: sob)
Discontinued
prednisone 10 mg tablet
10 mg PO DIRECTED Qty: 7 0RF
Rx Instructions:
20 mg daily for 2 days, 10 mg daily for 3 days and stop, start on 06/09/23
Discharge Orders:
Discharge Patient (As Directed); Ordered 06/17/23
Ordered By: Obdulio Stahl
Discharge Date and Time
Discharge Date/Time: 06/17/23 16:15
--- NOTE | 2023-06-17 14:03 | W.PN.PUL3 ---
Today's Communication / Plan
-
Prednisone taper
Restart inhalers
Completed antibiotic
Wean off oxygen
CPAP set up in the outpatient setting ongoing
Discharge planning
Sign off
Assessment
-
62-year-old man with history of COPD, admitted to the hospital with shortness of breath, required intubation and mechanical ventilation due toHypercapnic respiratory failure. Extubated and on supplemental oxygen. Patient transferred to the floors
06/15/2023.
Pulmonary following for for hypoxemic respiratory failure/acute exacerbation of COPD/pneumonia
Acute on chronic hypercapnic respiratory failure requiring mechanical ventilation, acute exacerbation of COPD.
ABG 06/11/2023: 7.06, 94/132
Emergently intubated 06/11/2023
Extubated 06/14/2023.
Chest x-ray: Bilateral infiltrates.
Increased proBNP
Differential diagnosis includes pneumonia ( has leukocytosis) and/or acute on chronic heart failure with preserved ejection fraction.
HAZEL:01/2023 :Normal left ventricular systolic function. Left ventricular ejection fraction
�is 55%.Mild to moderate mitral regurgitation.Moderate tricuspid regurgitation.
Suspect chronic cor pulmonale due to underlying COPD
Patient failed BiPAP overnight, ABGs without significant improvement, patient is intubated and mechanically ventilated.
Patient is extubated 06/14/2023.� Hemodynamically condition stable.� Lung exam has improved.
Conditions BANQUET CHEF:
Dosed on hospital admission 04/2023: Hypercapnic respiratory failure due to COPD exacerbation.
COPD: symbicort. Patient states he is not using it or any BD or O2 at home
FLAVIO: PSG 6 y ago, once, rec CPAP, used only briefly s O2 and could not adapt, ended up returning equipment
AFib on apixaban, metoprolol, sotalol, digoxin
HFrecoveredEF on HAZEL 02-16-23 (EF 45=5% on TTE )
V-fib cardiac arrest, s/p ICD/PM
MReg
HTN
Gout
Arthritis
DM
CKD
Peripheral artery disease, s/p iliac stent
Back surgery
Smoker: 1 ppd for 49 y, down to 7 cig/d for last 2 m
ETOH use: beer, weekly intoxication for 49 y till 3 m ago when quit ETOH
Assessment and plan:
Patient admitted with acute severe hypercapnic respiratory failure, acute onset change in mental status.� Required emergent intubation 06/11/2023, does not respond to BiPAP therapy.
Differentials might be infectious etiology pneumonia/with increased proBNP heart failure is a possibility on top of his underlying COPD with acute exacerbation. It is noted in the past that the patient has refused oxygen therapy and has history of
medical noncompliance.�
-
Clinically improved-ambulatory around the east without significant symptoms.
Patient extubated-06/14/2023.
-
Wean off oxygen as able.
-
I agree with discharge planning
-
Acapella device-can continue at home until symptoms completely clear.
Acute exacerbation of COPD: Improved bronchospasm.
Continue prednisone 40 mg daily 06/16/2023. Decrease by 10 mg every 72 hours to off.
Discontinue all nebulizers upon discharge.
Transition to inhalers upon discharge. Usually on Trelegy.
-
BiPAP was discontinued.
-
Sputum culture with haemophilus influenza.
MRSA screen negative.
Completed 7-day course of antibiotics. No additional antibiotics needed.
Blood culture positive with Streptococcus species
Repeat cultures negative
Defer antibiotics to infectious disease.
Chest x-ray 06/14/2023: Reviewed, mild right lower lobe pneumonia.� Improved compared to prior.� There is mild left lower lobe abnormality
-
Heart failure with preserved ejection fraction.��proBNP elevated to 7490.
Negative cardiac troponin.
Cardiology following
Status post diuresis.
-
-Acute kidney injury, improved. Hyperkalemia management per primary team.
-
History of obstructive sleep apnea: Patient did not tolerate CPAP at home
-
-Permanent atrial fibrillation
Sotalol resumed today as per cardiolog rate improved
Remains on anticoagulation
Management per primary team
continue with metoprolol.
Anticoagulation with apixaban
-DVT prophylaxis-on apixaban.
-
I agree with discharge planning
Outpatient follow-up in our office with Dr. Rowe after discharge.
Sign off
Subjective Data
-
Date of Service:
Date of Service: June 17, 2023
Chief Complaint: Pulmonary Follow Up (Acute exacerbation of COPD/pneumonia)
Subjective:
Feels better
Patient has been ambulatory
Anxious to go home
Review of Systems
General: Fever (n)
Cardiopulmonary: Dyspnea (n)
GI: Abdominal Pain (n) and Nausea (n)
Objective Data
Data Reviewed
Vital Signs / I&O / Oxygen:
Vital Signs
Temp Pulse Resp BP Pulse Ox
98.1 F 107 16 130/66 93
06/17/23 07:17 06/17/23 09:34 06/17/23 07:17 06/17/23 09:34 06/17/23 08:15
Intake and Output
06/16/23 06/17/23 06/18/23
06:59 06:59 06:59
Intake Total 1408.3 / 1408.3 1320 / 1320
Output Total 1475 / 1475 1300 / 1300
Balance -66.7 / -66.7
SaO2 [CPAP/PSV] 94
SaO2 [A/C] 97
SaO2 93
Nasal Cannula flow liters per 1.5
minute
Physical Exam
General: Respiratory Distress (n) and Comfortable
HEENT: Normocephalic
Cardiovascular: S1-S2 and Irregular Rhythm
Respiratory: Wheeze (Chronic)
GI: Soft and Non Distended
Neurology: Awake and Alert
Labs/Micro/Reports
Lab Data
06/17/23 07:21
06/17/23 07:21
Microbiology
06/13/23 11:51 Blood/Venous Blood Culture - Preliminary
No Growth in 4 days- Final report to follow
06/13/23 11:22 Blood/Venous Blood Culture - Preliminary
No Growth in 4 days- Final report to follow
06/11/23 13:03 Blood/Venous Blood Culture - Final
No Growth - Final Report
--- NOTE | 2023-06-17 14:18 | CM ---
Addendum entered by Bessy Quiles RN 06/17/23 14:56:
DR Stahl completed BIPI script and wrote note for BIPAP. All information sent to Vanessa at [facility] . They will set up BIPAP on Sunday.
Original Note:
entered order for discharge.
As per PT Vn recommended.
Home oxygen test indicates home oxygen need.
Spoke with patient he requested fastest o2 set up possible.Agreed on [facility] Cliical script faxed to [phone] .
Pt qualifies as per [facility].
Postable to be delivered to room and he will call at ri for concentrator to be deliverd to home. Pt stated understanding .
[place] will drive him home.
Pt said Jake CARRANZA he will accept. Referral placed.
PLAN Home with home oxygen with [facility] and Jake Carranza fax [phone]
--- NOTE | 2023-06-17 14:53 | PTCARENOTE ---
Reviewed discharge instructions with patient. Patient verbalizes understanding. Reviewed tapering doses of prednisone - verbalizes understanding. Reviewed heart failure education and patient has heart failure booklet. Patient is going home with
oxygen and [facility]. Removed peripheral IV and tele monitor. Patient states that he understands all instructions and denies questions at this time.
--- NOTE | 2023-06-17 14:57 | CM ---
DR Stahl completed BIPI script and wrote note for BIPAP. All information sent to Vanessa at [facility] . They will set up BIPAP on Sunday.
MD entered order for discharge.
As per PT Vn recommended.
Home oxygen test indicates home oxygen need.
Spoke with patient he requested fastest o2 set up possible.Agreed on Vanessa [facility] Cliical script faxed to [phone] .
Pt qualifies as per [facility].
Portable to be delivered to room and he will call at al for concentrator to be delivered to home. Pt stated understanding .
[place] will drive him home.
Pt said Jake CARRANZA he will accept. Referral placed.
[facility] Carranza fax [phone]
--- NOTE | 2023-06-17 15:57 | PTCARENOTE ---
Patient left via wheelchair accompanied by staff member and spouse. Denies discharge instruction questions.
--- NOTE | 2023-06-18 10:30 | W.HF.CON ---
Heart Failure
- LV Function
Left ventricular function study result: LV Ejection fraction >40%
Ejection Fraction Percentage: 45-50
- ARNI
Patient already on ARNI: No
Heart Failure ARNI Not Indicated: LV Ejection Fraction >/= 40%
- ACEI/ARB
Patient already on ACEI/ARB: No
Heart Failure ACEI/ARB Not Indicated: LV Ejection Fraction > 40%
- Beta Lakia
Patient already on Evidence Based Beta Lakia: Yes
- Mineralocorticord Receptor Antagonist
Patient already on MRA: No
Heart Failure MRA Not Indicated: LV Ejection Fraction > 40%
- SGLT-2 Inhibitor
Patient already on SGLT-2 Inhibitor: Yes
- Afib Anticoagulation
Patient already on Anticoagulation for Afib: Yes
- NYHA CHF Classification
NYHA CHF Classification Level: Class III - Symptoms w/ min exertion, interferes w/ nml daily activity
- ACC/AHA Stage
ACC/AHA Stage: Stage C: Symptomatic Heart Failure
== END 2023-06-17 16:15 | disposition home health service (06) | DRG 208 ==
LOC: 4 EAST ACU 14:49
PROVIDERS: Nurse Practitioner Family; Student in an Organized Health Care Education/Training Program; ADMITTING PHYSICIAN Internal Medicine; ATTENDING PHYSICIAN Family Medicine; CONSULT PHYSICIAN Internal Medicine Critical Care Medicine; EMERGENCY PHYSICIAN Emergency Medicine; FAMILY PHYSICIAN Family Medicine; OTHER PHYSICIAN Internal Medicine Cardiovascular Disease; OTHER PHYSICIAN Internal Medicine Infectious Disease
PROC: 0BH17EZ Insertion of Endotracheal Airway into Trachea, Via Natural or Artificial Opening (ICD-10-PCS; 2023-06-11)
PROC: 5A09357 Assistance with Respiratory Ventilation, Less than 24 Consecutive Hours, Continuous Positive Airway Pressure (ICD-10-PCS; 2023-06-11)
PROC: 5A1945Z Respiratory Ventilation, 24-96 Consecutive Hours (ICD-10-PCS; 2023-06-11)
PROC: 0DH67UZ Insertion of Feeding Device into Stomach, Via Natural or Artificial Opening (ICD-10-PCS; 2023-06-12)
DX: J44.1 Chronic obstructive pulmonary disease with (acute) exacerbation (principal); G92.8 Other toxic encephalopathy; I50.33 Acute on chronic diastolic (congestive) heart failure; J96.21 Acute and chronic respiratory failure with hypoxia; J18.9 Pneumonia, unspecified organism; J96.22 Acute and chronic respiratory failure with hypercapnia; I48.21 Permanent atrial fibrillation; I13.0 Hypertensive heart and chronic kidney disease with heart failure and stage 1 through stage 4 chronic kidney disease, or unspecified chronic kidney disease; N17.9 Acute kidney failure, unspecified; E87.29 Other acidosis; R78.81 Bacteremia; F17.210 Nicotine dependence, cigarettes, uncomplicated; I27.81 Cor pulmonale (chronic); E11.51 Type 2 diabetes mellitus with diabetic peripheral angiopathy without gangrene; N18.31 Chronic kidney disease, stage 3a; E11.22 Type 2 diabetes mellitus with diabetic chronic kidney disease; E78.00 Pure hypercholesterolemia, unspecified; E87.5 Hyperkalemia; G47.33 Obstructive sleep apnea (adult) (pediatric); M10.9 Gout, unspecified; F10.10 Alcohol abuse, uncomplicated; I27.29 Other secondary pulmonary hypertension; M19.90 Unspecified osteoarthritis, unspecified site; I08.1 Rheumatic disorders of both mitral and tricuspid valves; E11.65 Type 2 diabetes mellitus with hyperglycemia; R23.0 Cyanosis; B95.5 Unspecified streptococcus as the cause of diseases classified elsewhere; B96.3 Hemophilus influenzae [H. influenzae] as the cause of diseases classified elsewhere; G47.09 Other insomnia; T38.0X5A Adverse effect of glucocorticoids and synthetic analogues, initial encounter; Y92.239 Unspecified place in hospital as the place of occurrence of the external cause; Z87.01 Personal history of pneumonia (recurrent); Z79.01 Long term (current) use of anticoagulants; Z79.51 Long term (current) use of inhaled steroids; Z79.52 Long term (current) use of systemic steroids; Z91.199 Patient's noncompliance with other medical treatment and regimen due to unspecified reason; Z95.810 Presence of automatic (implantable) cardiac defibrillator; Z88.0 Allergy status to penicillin; Z99.81 Dependence on supplemental oxygen
CPT/HCPCS: 36600; 71045; 80048; 80053; 80162; 80202; 80306; 80307; 81003; 81015; 82010; 82077; 82805; 82962; 82977; 83036; 83605; 83735; 83880; 84100; 84443; 84478; 84484; 85025; 85610; 85730; 87040; 87070; 87077; 87149; 87185; 87205; 87641; 92526; 92610; 93005; 93306; 94002; 94003; 94640; 94660; 96365; 96375; 97116; 97163; 97166; 97535; 99291

== ENCOUNTER → 2023-07-05 | Outpatient (REF) | payer OTHER, MEDICAID, SELFPAY | LOC: DHSLP | PROVIDERS: ATTENDING PHYSICIAN Internal Medicine Critical Care Medicine; FAMILY PHYSICIAN Family Medicine | DX: G47.33 Obstructive sleep apnea (adult) (pediatric) (principal); R09.02 Hypoxemia | CPT/HCPCS: 95810 ==

== ENCOUNTER → 2023-11-26 09:48 | Outpatient (REF) | payer OTHER, MEDICAID, SELFPAY | LOC: RAD 09:48 | PROVIDERS: ATTENDING PHYSICIAN Internal Medicine; FAMILY PHYSICIAN Family Medicine | DX: R14.0 Abdominal distension (gaseous) (principal) | CPT/HCPCS: 71250; 74176 ==

== ENCOUNTER → 2024-05-17 09:51 | Outpatient (REF) | payer OTHER, SELFPAY | LOC: RAD 09:51 | PROVIDERS: ATTENDING PHYSICIAN Internal Medicine; FAMILY PHYSICIAN Family Medicine | DX: R91.1 Solitary pulmonary nodule (principal) | CPT/HCPCS: 71250 ==

== ENCOUNTER 2024-08-09 11:01 | Emergency (ER) | payer OTHER, SELFPAY ==
[2024-08-09 11:04] VITALS: BP 154/73
[2024-08-09 11:30] LABS: % Basophils 0.8 % (0-2); % Eosinophils 1.2 % (0-6); % Immature Granulocytes 0.6 % (0-0.5); % Lymphocytes 8.4 % (20.5-51.1); % Monocytes 6.6 % (1.7-9.3); % Neutrophils 82.4 % (42.2-75.2); Absolute Basophils 0.1 10^3/uL (0-0.2); Absolute Eosinophils 0.1 10^3/uL (0-0.7); Absolute Immature Granulocytes 0.1 10^3/uL (0-0.05); Absolute Lymphocytes 0.9 10^3/uL (1.2-3.4); Absolute Monocytes 0.7 10^3/uL (0.1-0.6); Absolute Neutrophils 8.8 10^3/uL (1.4-6.5); Hematocrit 34.9 % (39.0-52.0); Hemoglobin 10.4 g/dL (13.0-18.0); Mean Corp Hgb Conc. 29.8 g/dL (33.0-37.0); Mean Corpuscular Hgb 26.5 pg (27.0-31.0); Mean Corpuscular Volume 88.8 fL (80.0-94.0); Mean Platelet Volume 9.5 fL (7.4-10.4); Nucleated Red Blood Cells % 0 % (-); Platelet Count 212 10^3/uL (130-400); Red Blood Cell Count 3.93 10^6/uL (4.70-6.10); Red Cell Dist. Width 18.2 % (11.5-14.5); White Blood Cell Count 10.7 10^3/uL (4.8-10.8)
[2024-08-09 11:56] LABS: ALT (SGPT) 15 U/L (0-50); AST (SGOT) 30 U/L (17-59); Alkaline Phosphatase 228 U/L (38-126); Blood Urea Nitrogen 52 mg/dl (9-20); Calcium 8.6 mg/dl (8.4-10.2); Carbon Dioxide 27 mmol/L (22-30); Chloride 104 mmol/L (98-107); Glucose 140 mg/dl (70-99); Potassium 5.7 mmol/L (3.5-5.1); Sodium 140 mmol/L (135-145); Total Bilirubin 1.3 mg/dl (0.2-1.3); Total Protein 7.1 g/dl (6.3-8.2); eGFR 51.35
--- NOTE | 2024-08-09 14:06 | ED.GENMED ---
History of Present Illness
General
Chief Complaint: Abnormal Lab Value
Source: patient
Exam Limitations: none
Time Seen by Provider: 08/09/24 12:59
Nursing documentation reviewed up to this point in time: agreed with
History of Present Illness
History of Present Illness:
pt is a 63 y/o M with h/o afib on eliquis, COPD, AICD, chf on lasix 20 mg
CKD
here requesting treatment for hyperkaemia found on outpatient labs
pt says his environmental manager ordered blood work 2 days ago and he was called with results of k o f6.4 and told to call his melter loader
he did and they were going to give him samples of lokelma because pt's insurance doesn't cover it. he decided there was too much traffic to be able to get there yesterday so he didn't go there and now is here requesting lokelma
ihzara is going to see his melter loader in 2days in the office
chronic cough, wheezing, edeam
he says this fluctuates
he want to go home, does not wish for more tests
Past History
Past History
ED Past Medical History: Arrthythmia, CHF, COPD, HTN, Hypercholesterolemia, NIDDM, Valvular disease and Other (Previous cardiac arrest)
ED Past Surgical History: Cardiac and Orthopedic
Social History
Tobacco: Smoker
Alcohol: None
Drug: None
Personal:
Living: with family
Review of Systems
Review of Systems
Allergies reviewed?: Yes
All Other Systems: Not applicable
Phy Exam
Physical Exam
Physical Exam:
GENERAL: Alert , in no apparent distress
EYE: pupils equal and reactive
NECK: Supple
ENT: o/p clr, mmm.
CARDIAC: Regular rate and rhythm .
LUNGS: rhconhi/slight end exp wheezing throughout, occ cough; smoker's cough; no resp distress
ABDOMEN: Soft, without focal tenderness, no r/g, no cvat, normal bowel sounds
NEUROLOGICAL: Alert and oriented, no focal neuro deficits
SKIN: Warm and dry, skin intact.
MUSCULOSKELETAL: mild nonpitting symmetric edema, well perfused. overall mildly pink, nontender, not erythematous
PSYCH: Normal and appropriate interaction.
Course
Orders/Labs/Results
Orders:
Orders
08/09/24 11:09
Electrocardiogram (*1) Urgent
Reason for Study: Other
Other Reason for Exam: hyperkalemia
EKG- Treatment ONCE
08/09/24 11:20
Complete Blood Count/With Diff Urgent
Comprehensive Metabolic Panel Urgent
08/09/24 14:06
Sodium Zirconium Cyclosilicate [Lokelma] 10 gram PO NOW STA
Abnormal Lab Results
08/09/24
11:20
RBC 3.93 L 10^6/uL
(4.70-6.10)
Hgb 10.4 L g/dL
(13.0-18.0)
Hct 34.9 L %
(39.0-52.0)
MCH 26.5 L pg
(27.0-31.0)
MCHC 29.8 L g/dL
(33.0-37.0)
RDW 18.2 H %
(11.5-14.5)
Abs Immat Gran (auto) 0.1 H 10^3/uL
(0-0.05)
Absolute Neuts (auto) 8.8 H 10^3/uL
(1.4-6.5)
Absolute Lymphs (auto) 0.9 L 10^3/uL
(1.2-3.4)
Absolute Monos (auto) 0.7 H 10^3/uL
(0.1-0.6)
Immature Gran % 0.6 H %
(0-0.5)
Neutrophils % 82.4 H %
(42.2-75.2)
Lymphocytes % 8.4 L %
(20.5-51.1)
Potassium 5.7 H mmol/L
(3.5-5.1)
BUN 52 H mg/dl
(9-20)
Creatinine 1.5 H mg/dL
(0.7-1.3)
Glucose 140 H mg/dl
(70-99)
Alkaline Phosphatase 228 H U/L
(38-126)
08/09/24 11:20
08/09/24 11:20
Vital Signs
Initial and Last Documented VS:
Initial Vital Signs
Temp Pulse Resp BP Pulse Ox
36.6 C 86 18 154/73 92
08/09/24 11:04 08/09/24 11:04 08/09/24 11:04 08/09/24 11:04 08/09/24 11:04
Last Documented Vital Signs
Temp Pulse Resp BP Pulse Ox
36.5 C 87 16 172/87 95
08/09/24 14:41 08/09/24 14:41 08/09/24 14:41 08/09/24 14:41 08/09/24 14:41
MDM/Problems Addressed
Differential Diagnosis Includes:
hyperkalemia,
MDM/Problems Addressed:
63-year-old male with a history of A-fib, on Eliquis, CHF on Lasix, chronic kidney disease presents for abnormal lab finding with elevated potassium to 6.4 on outpatient labs 1 by the environmental manager 2 days ago. He was instructed by his melter loader
to come to the office and get Lokelma because he does not afford it with his insurance does not cover it. Patient said he was not willing to go in traffic yesterday to get the Lokelma so that is why he is here. He has had a cough but that is
chronic, he smokes and has COPD. He does not wish for any more tests. Upon my history and physical he had already been waiting for a degree of time, had his labs drawn and wanted the results, the dose of Lokelma and to be discharged. Patient was
informed that his potassium was 5.7 today without any EKG changes, he is always in A-fib which was a slow rate in the 50s. His creatinine is at baseline of 1.5. He does have edema in his legs, some rhonchi and may be wheezes in his lungs and
occasional cough. I did not feel like he was in significant heart failure however I did offer him a chest x-ray and the patient declined. He has a chest CT from earlier this year showing a spiculated mass that though it did decrease in size was
never biopsied. I talked him about this. Patient briefly was made aware but he would like to go home. I do feel like it is reasonable to treat him with a dose of Lokelma since his potassium is downtrending and he has close follow-up with his
melter loader in 2 days. Told to avoid any potassium high foods
*Critical Care Note
Total Time (30-74mins, 75-104mins- exclusive of procedures): Not Applicable
ED Attending Note
-
Portions of this chart may have been created with voice recognition software.� Occasional wrong word or��sound alike� substitutions may have occurred due to the inherent limitations of voice recognition software.
Discharge Plan
Departure
Patient Disposition: Home (Routine Discharge)
Date of Disposition: 08/09/24
Time of Disposition: 14:19
Patient with high blood pressure during this ER visit?: No
Condition: Fair
Discharge Problem:
Hyperkalemia
Instructions: Hyperkalemia (DC), Low-potassium diet
Prescriptions:
No Action
allopurinol 100 mg Tablet
100 mg PO DAILY
sotalol 120 mg Tablet
120 mg PO QPM
dapagliflozin propanediol [Farxiga] 10 mg Tablet
10 mg PO DAILY
digoxin 0.125 MG tablet
0.125 mg PO MOWEFR
metoprolol succinate 100 mg Tablet Extended Release 24 Hr
100 mg PO BID Qty: 60 0RF
Eliquis 5 MG tablet
5 mg PO BID Qty: 0 0RF
hydrocodone-acetaminophen 10-325 mg Tablet
1 tab PO Q4HPRN PRN (Reason: severe pain)
Trelegy Ellipta 100-62.5-25 mcg Blister With Device
1 inh INHALATION R DAILY
furosemide 40 mg tablet
20 mg PO MOWEFR
guaifenesin 600 mg tablet extended release 12hr
600 mg PO [id number] PRN (Reason: cough)
albuterol sulfate 2.5 mg /3 mL (0.083 %) Solution For Nebulization
2.5 mg INHALATION R Q4HPRN PRN (Reason: sob)
prednisone 10 mg Tablet
See Rx Instructions .ROUTE .COMPLEX Qty: 30 0RF
Rx Instructions:
Take By Mouth:
40 mg daily x3 days, 30 mg daily x3 days,
20 mg daily x3 days, 10 mg daily x3 days.
polyethylene glycol 3350 17 gram/dose powder
17 g PO DAILY Qty: 510 0RF
Referrals:
Maycol Dhaliwal MD [Family Provider] - Follow up in 2-3 days
Activity Restrictions/Additional Instructions:
YOU NEED TO SEE YOUR CASE MGR ON SUNDAY PLANNED
YOU WERE GIVEN LOKELPR TODAY FO [facility] POTASSIUM OF 5.7 TODAY
IT IS BETTER THAN 2 DAYS AGO
BUT YOU NEED TO BE SURE TO AVOID FOODS HIGH IN POTASSIUM
return for any concerns
you should also consider getting another chest xray or cat scan if your cough persist
Interventions
Interventions:
*Risk Screen - Suicide Last Done: 08/09/24 11:04
*General Assessment Last Done: 08/09/24 11:04
*Neglect/Abuse Screening Last Done: 08/09/24 11:04
*ED- Fall Risk Assessment Last Done: 08/09/24 14:41
*ED COVID-19 Vaccine History Last Done: 08/09/24 14:41
*Nursing Disposition Last Done: 08/09/24 14:43
Discharge Date and Time
Discharge Date/Time: 08/09/24 14:43
Print Language: ICELANDIC
[2024-08-09] MEDS: LOKELMA 10 GRAM PO (14:37)
[2024-08-09 14:41] VITALS: BP 172/87
== END 2024-08-09 14:43 | disposition home or self-care (01) ==
LOC: EMR 11:01
PROVIDERS: EMERGENCY PHYSICIAN Emergency Medicine; FAMILY PHYSICIAN Family Medicine
DX: E87.5 Hyperkalemia (principal); I13.0 Hypertensive heart and chronic kidney disease with heart failure and stage 1 through stage 4 chronic kidney disease, or unspecified chronic kidney disease; I50.9 Heart failure, unspecified; E11.22 Type 2 diabetes mellitus with diabetic chronic kidney disease; N18.9 Chronic kidney disease, unspecified; E78.00 Pure hypercholesterolemia, unspecified; I48.91 Unspecified atrial fibrillation; J44.9 Chronic obstructive pulmonary disease, unspecified; Z79.01 Long term (current) use of anticoagulants; F17.200 Nicotine dependence, unspecified, uncomplicated; Z95.810 Presence of automatic (implantable) cardiac defibrillator; Z86.74 Personal history of sudden cardiac arrest
CPT/HCPCS: 99284; 80053; 85025; 93005

== ENCOUNTER → 2024-08-19 08:04 | Outpatient (REF) | payer OTHER, SELFPAY | LOC: RCS 08:04 | PROVIDERS: ATTENDING PHYSICIAN Internal Medicine Cardiovascular Disease; FAMILY PHYSICIAN Family Medicine | DX: I50.22 Chronic systolic (congestive) heart failure (principal) | CPT/HCPCS: 93306 ==

== ENCOUNTER 2024-10-24 13:55 | Inpatient (IN) | payer OTHER, SELFPAY ==
[2024-10-24] VITALS (20 sets, daily range): BP systolic 112–140; BP diastolic 41–97
--- NOTE | 2024-10-24 11:40 | ED.GENMED ---
History of Present Illness
General
Chief Complaint: Abnormal Lab Value
Source: patient
Exam Limitations: none
Time Seen by Provider: 10/24/24 11:09
History of Present Illness
History of Present Illness:
See MDM
Past History
Past History
ED Past Medical History: Arrthythmia, CHF, COPD, HTN, Hypercholesterolemia, NIDDM, Valvular disease and Other (Previous cardiac arrest)
ED Past Surgical History: Cardiac and Orthopedic
Social History
Tobacco: Smoker
Alcohol: None
Drug: None
Personal:
Living: with family
Phy Exam
Physical Exam
Physical Exam:
See MDM
Course
Orders/Labs/Results
Orders:
Orders
10/24/24 11:23
* Blood Bank Products Urgent
's Orders: Bob Beasley DO
Blood Bank Products: *Packed RBC Leuko(PRBC's)
Quantity: 2
Transfuse Today: Yes
Reason: Bleeding
Cardiac Monitoring- Treatment ONCE
IV Insert/Care/Rem.- Treatment PRN
Pantoprazole 80 mg/100 ml Nss [Protonix] 80 mg in 100 ml IV NOW
Pantoprazole [Protonix IV] 80 mg IV NOW STA
10/24/24 11:24
Hydrocodone 5/APAP 325 [[place] 5/325] 2 tablet PO NOW STA
10/24/24 11:27
Consult Gastroenterology [GASTROINTESTINAL CONSULT] Routine
Consulting Provider: Carlos Alberto Tavera
Was physician already notified: Yes
10/24/24 12:04
Type+Screen Urgent
Complete Blood Count/With Diff Urgent
Comprehensive Metabolic Panel Urgent
PTT Urgent
Prothrombin Time Urgent
10/24/24 12:15
ABO2 Urgent
BBK Wristband Number:
Associate notified that ABO2 has been ordered: MARIAN-ER
Date: 10/24/24
Time: 12:15
Windows Technical Specialist ID: [id number]
Abnormal Lab Results
10/24/24
12:04
RBC 2.14 L 10^6/uL
(4.70-6.10)
Hgb 5.1 L* g/dL
(13.0-18.0)
Hct 18.9 L* %
(39.0-52.0)
MCH 23.8 L pg
(27.0-31.0)
MCHC 27.0 L g/dL
(33.0-37.0)
RDW 19.6 H %
(11.5-14.5)
Abs Immat Gran (auto) 0.1 H 10^3/uL
(0-0.05)
Absolute Neuts (auto) 8.0 H 10^3/uL
(1.4-6.5)
Absolute Lymphs (auto) 0.8 L 10^3/uL
(1.2-3.4)
Absolute Monos (auto) 0.9 H 10^3/uL
(0.1-0.6)
Immature Gran % 1.2 H %
(0-0.5)
Neutrophils % 80.5 H %
(42.2-75.2)
Lymphocytes % 8.2 L %
(20.5-51.1)
PT 22.6 H Sec
(11.4-14.6)
APTT 42.2 H Sec
(23.4-35.0)
10/24/24 12:04
Vital Signs
Initial and Last Documented VS:
Initial Vital Signs
Temp Pulse Resp BP Pulse Ox
97.5 F 75 20 134/48 94
10/24/24 10:25 10/24/24 10:25 10/24/24 10:25 10/24/24 10:10/24/24 10:25
Last Documented Vital Signs
Temp Pulse Resp BP Pulse Ox
97.5 F 72 16 125/54 94
10/24/24 10:25 10/24/24 12:00 10/24/24 12:00 10/24/24 12:00 10/24/24 12:00
MDM/Problems Addressed
Differential Diagnosis Includes:
Note:
CHIEF COMPLAINT(S)
Dark stools and fatigue.
HISTORY OF PRESENT ILLNESS
The patient is a 64-year-old male who presented with complaints of dark stools and fatigue. He reported having dark stools on approximately four occasions. The patients history includes a prior blood transfusion in December or December of the
previous year due to significant bleeding associated with a colonoscopy. He is currently on apixaban (Eliquis) for anticoagulation and he did take a dose this morning. The patient described feeling tired, lightheaded, and fatigued, especially when
performing activities such as walking up stairs. He noted a sensation of extreme tiredness and reported an episode of fainting. Outpt lab work reveled hemoglobin level of 5.5 g/dL, per pt. The primary concern is an upper gastrointestinal bleed,
which may be exacerbated by the use of apixaban. The patient denies the use of ibuprofen or aspirin and has not taken any iron supplements or bismuth subsalicylate, which could alter stool color. Physical examination revealed mild abdominal
tenderness.
CHRONIC MEDICAL CONDITIONS SIGNIFICANTLY AFFECTING CARE
The patient is on anticoagulation therapy with apixaban (Eliquis).
PHYSICAL EXAM
General: Well appearing and non-toxic
HEENT: protecting airway
Neck: appears supple
CV: No evidence of cyanosis
Resp: No accessory muscle use
Abd: Non-distended and nontender
Rectal: Black stool guaiac positive
Extremities: No deformities
Neuro: alert
Psych: Normal affect
Skin: Intact
PROBLEM LIST
Acute problems:
1. Upper gastrointestinal bleed
2. Anemia secondary to gastrointestinal bleeding
PLAN
1. Order and administer blood transfusion after obtaining consent.
2. Administer a proton pump inhibitor (pantoprazole) to reduce gastric acid production.
3. Monitor hemoglobin and hematocrit levels, repeat lab tests to check for possible lab error.
4. Withhold apixaban temporarily due to active bleeding.
5. Notify the gastrointestinal team for possible endoscopy to locate and address the source of bleeding.
6. Avoid oral intake until further assessment to minimize gastric acid production.
7. Keep the patient for overnight observation to monitor symptoms and response to treatment.
8. Address patients hydration needs with intravenous fluids as necessary.
DIFFERENTIAL DIAGNOSIS
The Differential Diagnosis includes, in no particular order and is not limited to:
1. Peptic ulcer disease
2. Gastric ulcer
3. Duodenal ulcer
4. Gastroesophageal reflux disease (GERD) with esophagitis
5. Gastric carcinoma
6. Esophageal varices
7. Krista-Miguel tear
8. Gastritis
9. Kate-Patterson syndrome
10. Medication-induced gastrointestinal bleeding (secondary to anticoagulation therapy)
Disposition:
SUMMARY OF ENCOUNTER
The patient was seen in the emergency department for symptoms of dark stools and fatigue, indicative of upper gastrointestinal bleeding. A significant anemia was noted with a hemoglobin level of 5.1 g/dL. Given the ongoing use of apixaban (Eliquis),
the patient was at higher risk for bleeding complications. A blood transfusion was initiated to manage anemia.
DISPOSITION
Admit
ASSESSMENT
The patient is experiencing upper gastrointestinal bleeding and symptomatic anemia, likely exacerbated by anticoagulation therapy.
EMERGENCY TREATMENTS ADMINISTERED
Packed red blood cells were administered to address anemia.
MANAGEMENT OF THE PATIENTS CARE WAS DISCUSSED WITH
The case was discussed with the gastroenterology team, who will evaluate the patient further.
PLAN
The patient will be admitted for further evaluation and management of gastrointestinal bleeding and anemia. Apixaban use will be suspended in light of active bleeding.
INDEPENDENT REVIEW OF LABS AND INTERPRETATION OF TESTS
My independent review of the complete blood count (CBC) indicates a hemoglobin level of 5.1 g/dL, which correlates with symptomatic anemia.
MEDICAL DECISION MAKING
- Number and Complexity of Problems Addressed: Chronic conditions affecting care include the use of apixaban (Eliquis). Differential diagnosis considered consists of peptic ulcer disease, gastric ulcer, duodenal ulcer, GERD with esophagitis, gastric
carcinoma, esophageal varices, Krista-Miguel tear, gastritis, Kate-Patterson syndrome, and medication-induced gastrointestinal bleeding.
- Data:
Category 1: The patient required a blood transfusion. The complete blood count was reviewed, noting a significant anemia.
Category 3: The management of the patients bleeding was discussed with the gastroenterology team.
- Risk: Due to the patients anticoagulation therapy and active bleeding, there is a high risk of complications requiring immediate intervention and hospital admission.
DIAGNOSIS
1. Upper gastrointestinal bleeding - K92.2
2. Symptomatic anemia - D64.9
*Pulse Oximetry
SaO2: 94
Oxygen Mode of Delivery: Room air
Patient hypoxic: no
*Critical Care Note
Total Time (30-74mins, 75-104mins- exclusive of procedures): 33 min
comment:
The high probability of a clinically significant, sudden or life threatening deterioration of the cardiovascular system(s) required my full and direct attention, intervention and personal management. The aggregate critical care time was 33 minutes.
This time is in addition to time spent performing reported procedures but includes the following:
[x] Data Review and interpretation
[x] Patient assessment and monitoring of vital signs
[x] Documentation
[x] Medication orders and management
ED Attending Note
-
Portions of this chart may have been created with voice recognition software.� Occasional wrong word or��sound alike� substitutions may have occurred due to the inherent limitations of voice recognition software.
Discharge Plan
Departure
Patient Disposition: Admit
Date of Disposition: 10/24/24
Time of Disposition: 12:41
Admit to: IMU
Presentation/result/management discussed w/ accepting MD/DO: Hospitalist
Discharge Problem:
UGIB (upper gastrointestinal bleed), Symptomatic anemia
Prescriptions:
No Action
allopurinol 100 mg Tablet
100 mg PO DAILY
sotalol 120 mg Tablet
120 mg PO QPM
dapagliflozin propanediol [Farxiga] 10 mg Tablet
10 mg PO DAILY
digoxin 0.125 MG tablet
0.125 mg PO MOWEFR
metoprolol succinate 100 mg Tablet Extended Release 24 Hr
100 mg PO BID Qty: 60 0RF
Eliquis 5 MG tablet
5 mg PO BID Qty: 0 0RF
hydrocodone-acetaminophen 10-325 mg Tablet
1 tab PO Q4HPRN PRN (Reason: severe pain)
Trelegy Ellipta 100-62.5-25 mcg Blister With Device
1 inh INHALATION R DAILY
furosemide 40 mg tablet
20 mg PO MOWEFR
guaifenesin 600 mg tablet extended release 12hr
600 mg PO [id number] PRN (Reason: cough)
albuterol sulfate 2.5 mg /3 mL (0.083 %) Solution For Nebulization
2.5 mg INHALATION R Q4HPRN PRN (Reason: sob)
prednisone 10 mg Tablet
See Rx Instructions .ROUTE .COMPLEX Qty: 30 0RF
Rx Instructions:
Take By Mouth:
40 mg daily x3 days, 30 mg daily x3 days,
20 mg daily x3 days, 10 mg daily x3 days.
polyethylene glycol 3350 17 gram/dose powder
17 g PO DAILY Qty: 510 0RF
Referrals:
Maycol Dhaliwal MD [Family Provider]
Interventions
Interventions:
*Risk Screen - Suicide Last Done: 10/24/24 11:52
*General Assessment Last Done: 10/24/24 11:52
*Neglect/Abuse Screening Last Done: 10/24/24 11:52
*ED- Fall Risk Assessment Last Done: 10/24/24 11:52
*ED COVID-19 Vaccine History Last Done: 10/24/24 11:52
Discharge Date and Time
Print Language: INDONESIAN
[2024-10-24] MEDS: PROTONIX 100 IV (11:59)
[2024-10-24] MEDS: PROTONIX IV 80 MG IV (11:59)
[2024-10-24] MEDS: NORCO 5/325 2 TABLET PO (12:00)
--- NOTE | 2024-10-24 12:11 | CON.GI ---
Addendum entered and electronically signed by Carlos Alberto Tavera DO 10/24/24 16:58:
I saw and examined the patient.
The UNIT REACTOR OPERATOR's note was reviewed and I agree with the note.
Comment: Mr. Og is a 64 y.o male with a past medical history of HTN, DM II, CKD, HFpEF, hx of V Fib (s/p ICD), A Fib (on eliquis) and history of colon polyps with hx of post-polypectomy bleed who presented to the ED with dark stools and
symptomatic anemia. Denies any prior history of similar symptoms in the past, although notes a prior history of post-polypectomy bleeding at [facility] (unable to review prior regards regarding this). Otherwise, he notes having dark brown and black stools
for a few days along with occasional abdominal pain. He denies any significant NSAIDs or prior EGD in the past. He is on eliquis and lost dose was on 10/24. In the ED, patient was HD-stable and found to have labs revealing a Hgb 5s with prior Hgb 10s
back on 07/2024 along with elevated BUN:College President ratio. Etiology seems concerning for UGIB secondary to possible PUD versus gastroduodenal erosions vs gastroduodenal AVMs versus gastroduodenitis. Clinically, doubt brisk UGIB and no other history of liver
disease making variceal GIB much less likely. Doubt LGIB based on his presentation although was previously advised to have a follow-up colonoscopy due to his prior colon polyps. Currently, he remains HD-stable without any melena or maroon colored
stools while in ED. Favor pursuing an EGD first to allow for eliquis wash-out for at least 2 days. He would also benefit from a colonoscopy as well given the degree of his anemia however currently hesitant/declining to pursue this given his prior
complication of a prior post-polypectomy bleed. For now, would plan for a tentative EGD on Sunday, 10/27, or sooner pending clinical course. Okay for CLD and empiric IV PPI while trending his Hgb with serial CBC and sending anemia w/u. See rest of
care as outlined below.
GI will continue to follow over weekend. Please call with any questions or concerns.
Original Note:
Consultation
-
Date/Time Consultation Requested: 10/24/24 1130
Date/Time Consultation Performed: 10/24/24 1215
Requesting Provider: Bob Beasley DO
Performing Provider: ADAMARIS Serna, Carlos Alberto Tavera MD
Reason for Consultation: melena anemia
Medical History
Chief Complaint / HPI
Chief Complaint: abnormal labs
History of Present Illness:
Pt is a 64yo with hx with hx VF arrest. afib on Eliquis , ICD, CHF, COPD, CKD, HTN, FLAVIO, colon polyps with post polypectomy bleeding with ER eval for abnormal labs and dark stools. On admission noted with melena in ER and asked to evaluate. In
review with patient he report admission about 1 year ago to [facility] for leg issues. During admission was unclear of etiology but proceed for colonoscopy. He recall resection of 9 polyp with post polypectomy bleeding requiring multiple
transfusion. He was recommended to return for repeat colonoscopy but did not as concern for complication. He now reports recent dark stools then noted brown but back to black on admission. Per prior labs hbg was 10.4 in July and now 5.1 on return.
He admits to some fatigue and chronic shortness of breath but only presented as directed by MD with low blood count.
He denies dysphagia, odynophagia, GERD, nausea, vomiting, abdominal pain, diarrhea, constipation, or red stools. Denies NSAID use. no hx Prior EGD.
Past Medical History
Past Medical History: Arrhythmias (VF arrest. afib ), CHF, COPD, HTN, Hypercholesterolemia, NIDDM and Other (prior cardiac arrest, colon polyps with post polypectomy bleeding )
Past Surgical History: Cardiac (ICD), Orthopedic (back surgery) and Other (cataracts)
Social History
Tobacco: Smoker
Alcohol: Occasional (several drinks 1 day per week)
Drug: None
Personal:
Living: With Family
Employment: Disabled
Family History
Family History: Other (no family hx colon CA or polyps)
Allergies / Home Medications
Allergy/AdvReac Type Severity Reaction Status Date / Time
Penicillins Allergy childhood Verified 10/24/24 10:25
�Medication �Instructions �Recorded
allopurinol 100 mg tablet 100 mg PO DAILY Gout 02/01/23
dapagliflozin propanediol 10 mg 10 mg PO DAILY Diabetes 02/01/23
tablet (Farxiga)
digoxin 125 mcg (0.125 mg) tablet 0.125 mg PO MOWEFR Arrhythmia 02/01/23
sotalol 120 mg tablet 120 mg PO QPM Arrhythmia 02/01/23
apixaban 5 mg tablet (Eliquis) 5 mg PO BID Blood clot 04/05/23
prevention/tx #0 tabs
metoprolol succinate 100 mg 100 mg PO BID Arrhythmia #60 tabs 04/05/23
tablet,extended release 24 hr
albuterol sulfate 2.5 mg/3 mL 2.5 mg inhalation R Q4HPRN PRN sob 06/11/23
(0.083 %) solution for nebulization
fluticasone fur. 100 mcg-umeclid 1 inh inhalation R DAILY 06/11/23
62.5 mcg-vilant 25 mcg Lung/Breathing Issues
inhalat.powder (Trelegy Ellipta)
furosemide 40 mg tablet 20 mg PO MOWEFR Fluid 06/11/23
retention/Swelling
guaifenesin 600 mg tablet, 600 mg PO [id number] PRN cough 06/11/23
extended release 12 hr
hydrocodone 10 mg-acetaminophen 1 tab PO Q4HPRN PRN severe pain 06/11/23
325 mg tablet
polyethylene glycol 3350 17 17 g PO DAILY #510 grams 06/17/23
gram/dose oral powder
prednisone 10 mg tablet See Rx Instructions .Route 06/17/23
.COMPLEX #30 tabs
Review of Systems
-
History Source: Patient
Constitutional: Reports Weight Loss
EENT: Reports No Symptoms
Respiratory: Reports Trouble Breathing (chronic )
Cardiac: Reports No Symptoms
Abdomen/GI: Reports Black Stools
: Reports No Symptoms
Musculoskeletal: Reports Edema
Skin: Reports No Symptoms
Neurological: Reports Dizzy and Weakness
Endocrine: Reports No Symptoms
Hematologic/Lymphatic: Reports Bleeding
Vital Signs
Temp Pulse Resp BP Pulse Ox
97.5 F 75 20 134/48 94
10/24/24 10:25 10/24/24 10:25 10/24/24 10:25 10/24/24 10:10/24/24 11:41
Physical Exam
Exam
General: Other (pale appearing and chronically ill )
HEENT: Normocephalic and Anicteric
Respiratory: Rhonchi
Cardiac: Regular Rhythm, Peripheral Edema and Other (LE vascular changes )
GI: Soft, Non Tender and Non Distended
Skin: Warm and Dry
Neuro: Awake, Alert and AO x 3
Psych: Calm
Results
Diagnostic Image Results:
Prior GI Procedures:
EGD: none
Colonoscopy: 2023 [facility] 9 polyps- post polypectomy bleed
Assessment / Plan
-
Pt is a 64yo with hx with hx VF arrest. afib on Eliquis , ICD, CHF, COPD, CKD, HTN, FLAVIO, colon polyps with post polypectomy bleeding with ER eval for abnormal labs and dark stools. On admission noted with melena in ER and asked to evaluate. In
review with patient he report admission about 1 year ago to [facility] for leg issues. During admission was unclear of etiology but proceed for colonoscopy. He recall resection of 9 polyp with post polypectomy bleeding requiring multiple
transfusion. He was recommended to return for repeat colonoscopy but did not as concern for complication. He now reports recent dark stools then noted brown but back to black on admission. Per prior labs hbg was 10.4 in July and now 5.1 on return.
He admits to some fatigue and chronic shortness of breath but only presented as directed by MD with low blood count. no hx Prior EGD.
-symptomatic anemia
-melena
-hx GI bleeding with post polypectomy bleeding with resection of 9 polyps 1 year ago
other med problems:
hx VF arrest. afib on Eliquis , ICD, CHF, COPD, CKD, HTN, FLAVIO, tobacco/ ETOH use, Gout
PLAN:
Etiology of bleeding related to upper source with black stools, BUN and dizziness vs SB or lower source-- also may be multifactorial with CKD-- PUD, Ectasia, mass
no acute large volume bleeding
agree with transfusion
add iron/TIBC, % sat, ferritin, b12, folate
trend hbg
cont PPI
hold Eliquis
discussed EGD/colon -- pt agreeable to EGD after Eliquis wash out still unsure about colon with hx post polypectomy bleeding but was recommended follow up with hx polyps
He may just be agreeable for EGD if neg then colon
ok for diet
procedure likely Sunday unless signs of aggressive bleeding
continue medical optimization over the weekend with multiple medical issues
-
-
-
Thank you for consultation and allowing me to participate in the patient's care. Please call the antisubmarine weapons officer GI physician during the after hours with any questions or concerns.
[2024-10-24 12:28] LABS: INR 1.98; PT 22.6 Sec (11.4-14.6)
[2024-10-24 12:29] LABS: APTT 42.2 Sec (23.4-35.0)
[2024-10-24 12:34] LABS: Hematocrit 18.9 % (39.0-52.0); Hemoglobin 5.1 g/dL (13.0-18.0); Mean Corp Hgb Conc. 27.0 g/dL (33.0-37.0); Mean Corpuscular Volume 88.3 fL (80.0-94.0); Nucleated Red Blood Cells % 1.4 % (-); Platelet Count 299 10^3/uL (130-400); Red Cell Dist. Width 19.6 % (11.5-14.5)
[2024-10-24 12:37] LABS: ALT (SGPT) < 10 U/L (0-50); AST (SGOT) 21 U/L (17-59); Albumin 3.1 g/dl (3.5-5.0); Alkaline Phosphatase 200 U/L (38-126); Blood Urea Nitrogen 90 mg/dl (9-20); Calcium 7.9 mg/dl (8.4-10.2); Carbon Dioxide 21 mmol/L (22-30); Chloride 113 mmol/L (98-107); Glucose 111 mg/dl (70-99); Potassium 5.8 mmol/L (3.5-5.1); Sodium 140 mmol/L (135-145); Total Protein 6.0 g/dl (6.3-8.2); eGFR 38.42
--- NOTE | 2024-10-24 13:01 | HPS.HSE ---
Family Physician
-
Family Physician: Maycol Dhaliwal
Chief Complaint
-
fatigue
History of Present Illness
64-year-old male past medical history of COPD, obstructive sleep apnea, permanent atrial fibrillation on Eliquis, HFpEF, type 2 diabetes, gout, ventricular fibrillation status post ICD, hypertension, CKD 3, alcohol use disorder, smoking history,
presenting with low hemoglobin on outpatient labs and was recommended to come to the hospital. He endorses fatigue and did have some black stool few days ago that was hard. He does have some occasional abdominal pain denies any nausea or vomiting.
Denies any dizziness, chest pain or shortness of breath.
He states that he had GI bleeding in the past and had a colonoscopy that showed colonic polyps. He denies any prior endoscopy.
He smokes 11 cigarettes a day. He has some cough and shortness of breath which is at baseline. He drinks alcohol once a week.
Medical History
Past Medical History
Past Medical History: Reports Other (COPD, obstructive sleep apnea, permanent atrial fibrillation on Eliquis, HFpEF, type 2 diabetes, gout, ventricular fibrillation status post ICD, hypertension, CKD 3, alcohol use disorder, smoking history)
Past Surgical History: Reports None
Social History
Tobacco: Smoker
Alcohol: Occasional
Drug: None
Family History
Family History: Not pertinent
Allergies / Home Medications
Allergies reflects when Allergies were last updated in [facility].
Home Medications with original date entered in [facility]
Allergy/Medication List:
Allergies
Allergy/AdvReac Type Severity Reaction Status Date / Time
Penicillins Allergy childhood Verified 10/24/24 10:25
Home Medications
allopurinol 100 mg tablet 100 mg PO DAILY Gout 02/01/23
dapagliflozin propanediol 10 mg tablet (Farxiga) 10 mg PO DAILY Diabetes 02/01/23
digoxin 125 mcg (0.125 mg) tablet 0.125 mg PO MOWEFR Arrhythmia 02/01/23
sotalol 120 mg tablet 120 mg PO QPM Arrhythmia 02/01/23
apixaban 5 mg tablet (Eliquis) 5 mg PO BID Blood clot prevention/tx #0 tabs 04/05/23
metoprolol succinate 100 mg tablet,extended release 24 hr 100 mg PO BID Arrhythmia #60 tabs 04/05/23
albuterol sulfate 2.5 mg/3 mL (0.083 %) solution for nebulization 2.5 mg inhalation R Q4HPRN PRN sob 06/11/23
fluticasone fur. 100 mcg-umeclid 62.5 mcg-vilant 25 mcg inhalat.powder (Trelegy Ellipta) 1 inh inhalation R DAILY Lung/Breathing Issues 06/11/23
furosemide 40 mg tablet 20 mg PO MOWEFR Fluid retention/Swelling 06/11/23
guaifenesin 600 mg tablet, extended release 12 hr 600 mg PO [id number] PRN cough 06/11/23
hydrocodone 10 mg-acetaminophen 325 mg tablet 1 tab PO Q4HPRN PRN severe pain 06/11/23
polyethylene glycol 3350 17 gram/dose oral powder 17 g PO DAILY #510 grams 06/17/23
prednisone 10 mg tablet See Rx Instructions .Route .COMPLEX #30 tabs 06/17/23
Review of Systems
-
History Source: Patient
A 12 point ROS was completed and negative except as noted: Yes
Constitutional: Reports No Symptoms
EENT: Reports No Symptoms
Respiratory: Reports No Symptoms
Cardiac: Reports No Symptoms
Abdomen/GI: Reports See HPI
: Reports No Symptoms
Musculoskeletal: Reports No Symptoms
Skin: Reports No Symptoms
Neurological: Reports No Symptoms
Endocrine: Reports No Symptoms
Hematologic/Lymphatic: Reports No Symptoms
Psych: Reports No Symptoms
Physical Exam
Vital Signs
Vital Signs
Temp Pulse Resp BP Pulse Ox
97.5 F 69 20 125/54 95
10/24/24 10:25 10/24/24 12:45 10/24/24 12:45 10/24/24 12:00 10/24/24 12:45
Physical Exam
General: Well Developed, Well Nourished and No Apparent Distress
HEENT: NormoCephalic, Moist mucous membranes and Atraumatic
Respiratory: Clear
Cardiac: S1/S2 and Regular Rhythm; No Murmur or Rub
GI: Soft, Non Tender, Non Distended and Normal Bowel Sounds; No Organomegaly
Rectal: Deferred by Provider
Musculoskeletal: No Clubbing, No Cyanosis and No Edema
Skin: No Rash
Neuro: Nonfocal/grossly intact
Laboratory Results
-
10/24/24 12:04
Laboratory Results
PT 22.6 Sec (11.4-14.6) H 10/24/24 12:04
INR 1.98 10/24/24 12:04
APTT 42.2 Sec (23.4-35.0) H 10/24/24 12:04
Total Bilirubin 0.7 mg/dl (0.2-1.3) 10/24/24 12:04
AST 21 U/L (17-59) 10/24/24 12:04
ALT < 10 U/L (0-50) 10/24/24 12:04
Alkaline Phosphatase 200 U/L (38-126) H 10/24/24 12:04
Data Reviewed
-
Lab Data: Labs Reviewed by me
Old Records: Reviewed
Impression/Plan
-
IMPRESSION:
PLAN:
# Symptomatic acute blood loss anemia
# Upper GI bleeding possibly peptic ulcer
- Hemoglobin 5.1
-Hold Eliquis
- 2 units of blood
-N.p.o.
- Protonix 40 BID
-Check iron studies, B12, folate
-GI consult
#Chronic hyperkalemia
CKD 3A
- Baseline creatinine between 1.5-2 and potassium generally above 5.5
-would like to give lokelma but will avoid due to GI bleeding
-Check EKG
-insulin dextrose
COPD
- Continue Trelegy, albuterol
Obstructive sleep apnea
Chronic HFpEF
- continue lasix
- Hold dapagliflozin
Type 2 diabetes
- Insulin sliding scale
Gout
- Continue allopurinol
Permanent atrial fibrillation
- Hold Eliquis
- Continue sotalol
- Continue metoprolol, digoxin
Ventricular fibrillation status post ICD
Essential hypertension
Former alcohol use disorder
- Not drinking significantly at this time
Smoking history
-Current smoker
- Nicotine patch
Full code
DVT prophylaxis�SCDs
N.p.o.
[2024-10-24] MEDS: NOVOLIN R 5 UNITS IV (13:37)
[2024-10-24] MEDS: DEXTROSE 50% SYRINGE 25 GRAMS IV (13:37)
[2024-10-24 13:38] LABS: Glucose - Point of Care 115 mg/dl (70-99)
[2024-10-24 14:14] LABS: Total Iron Binding Capacity 388 ug/dl (261-462)
[2024-10-24 14:16] LABS: Iron < 20 ug/dl (49-181)
--- NOTE | 2024-10-24 14:41 | CM ---
Patient seen at bedside with patient . Patient lives in a 2 story home with a walker and a cane at home. Patient primarily uses the cane. Patient PCP is Dr. Dhaliwal and he uses the [facility] in [address] [place] [address]. Patient plan is for discharge home with VN
or no needs at this time. CM will continue to follow for discharge planning needs.
Plan;home with no needs; watch for VN needs.
[2024-10-24 14:43] LABS: Glucose - Point of Care 153 mg/dl (70-99)
[2024-10-24 15:33] LABS: Ferritin 7.4 ng/ml (17.9-464.0)
[2024-10-24 15:42] LABS: Glucose - Point of Care 154 mg/dl (70-99)
[2024-10-24 16:03] LABS: Potassium 5.2 mmol/L (3.5-5.1)
[2024-10-24 16:05] LABS: Folate 11.2 ng/ml (2.76-20); Vitamin B12 585 pg/ml (239-931)
[2024-10-24 17:45] LABS: Glucose - Point of Care 169 mg/dl (70-99)
[2024-10-24] MEDS: NORCO 7.5/325 1 TABLET PO ×2 (18:00→21:21)
[2024-10-24] MEDS: NOVOLOG FLEXPEN-LOW RESISTANCE SC (18:02)
[2024-10-24] MEDS: BETAPACE 120 MG PO (18:53)
--- NOTE | 2024-10-24 19:45 | PTCARENOTE ---
Pt received from ED at 1945. Pt pleasant, AAOx3, VSS, and able to ambulate into room w/o assistance. Pt presents with low HBG, but does not complain of any dizziness, lightheadedness, or pain. Pt receptive to room and call perez. Pt bed in lowest
position and call perez within reach. Pt educated on importance of call perez usage, pt relays understanding and cooperation. Will continue with current plan of care.
[2024-10-24] MEDS: PROTONIX IV 40 MG IV (21:18)
[2024-10-24] MEDS: NSS (PRESERVATIVE FREE) 10 ML IV (21:18)
[2024-10-24] MEDS: TOPROL XL 50 MG PO (21:19)
[2024-10-24 23:49] LABS: Glucose - Point of Care 127 mg/dl (70-99)
[2024-10-25] VITALS (14 sets, daily range): BP systolic 117–133; BP diastolic 47–59
--- NOTE | 2024-10-25 06:34 | W.PN.GI.CBS2 ---
Today's Communication / Plan
-
F/u post-transfusion CBC, transfuse for goal Hgb > 8 prior to endoscopy. Otherwise, no signs of overt GI bleeding since ED/admission. Plan for EGD on 10/27/24, for further evaluation. See rest of care as outlined below.
Assessment / Plan
-
#Symptomatic Anemia
#Acute Blood Loss Anemia
#Dark Stools c/f Melena
#C/f UGIB
#A Fib (on eliquis)
#Hx of Colon Polyps c/b #Post-polypectomy Bleed
Impression: Mr. Og is a 64 y.o male with a past medical history of HTN, DM II, CKD, HFpEF, hx of V Fib (s/p ICD), A Fib (on eliquis) and history of colon polyps with hx of post-polypectomy bleed who presented to the ED with dark stools and
symptomatic anemia. Denies any prior history of similar symptoms in the past, although notes a prior history of post-polypectomy bleeding at [facility] (unable to review prior regards regarding this). Otherwise, he notes having dark brown and black stools
for a few days along with occasional abdominal pain. He denies any significant NSAIDs or prior EGD in the past. He is on eliquis and lost dose was on 10/24. In the ED, patient was HD-stable and found to have labs revealing a Hgb 5s with prior Hgb 10s
back on 07/2024 along with elevated BUN:Senior Accounts Payable Clerk ratio. Etiology seems concerning for UGIB secondary to possible PUD versus gastroduodenal erosions vs gastroduodenal AVMs versus gastroduodenitis. Clinically, doubt brisk UGIB and no other history of liver
disease making variceal GIB much less likely. Doubt LGIB based on his presentation although was previously advised to have a follow-up colonoscopy due to his prior colon polyps. Currently, he remains HD-stable without any melena or maroon colored
stools since his admission.
S/p 2 uPRBCs pending post-transfusion CBC without any active signs of GI bleeding since admission
Recommendations:
- Okay for diet as tolerated
- F/u post-transfusion CBC, transfuse for goal Hgb > 8.0 prior to endoscopy
- Trend Hgb with serial CBC
- IV PPI 40 mg BiD
- F/u anemia w/u as previously ordered
- Still planning for a diagnostic EGD next Sunday on 10/27/24 which would allow for 2-day washout given patient's eliquis (last dose on 10/24)
- If EGD is unremarkable, would consider pursuing a colonoscopy however patient declining given his prior hx of previous post-polypectomy bleeding in the past (at [facility])
- Continue to hold eliquis while inpatient
- Notify GI if any evidence of overt GI bleeding over weekend
- Rest of care as per primary team
GI will continue to follow. Please call with any questions or concerns.
-
Subjective
Subjective
Date of Service: October 25, 2024
- Ordered 2 uPRBCS on 10/24/24, pending repeat AM CBC
- Otherwise, no acute events overnight or bloody stools/melena. Remains HD-stable
Feeling well, resting comfortably this AM without any abdominal pain. Denies any recent BMs since admission. No melena or bloody stools.
Objective
Data Reviewed
Laboratory Data:
Laboratory Results
PT 22.6 Sec (11.4-14.6) H 10/24/24 12:04
INR 1.98 10/24/24 12:04
APTT 42.2 Sec (23.4-35.0) H 10/24/24 12:04
Total Bilirubin 0.7 mg/dl (0.2-1.3) 10/24/24 12:04
AST 21 U/L (17-59) 10/24/24 12:04
ALT < 10 U/L (0-50) 10/24/24 12:04
Alkaline Phosphatase 200 U/L (38-126) H 10/24/24 12:04
Vital Signs and I&O:
Vital Signs
Temp Pulse Resp BP Pulse Ox
97.8 F 62 18 127/51 95
10/25/24 04:58 10/25/24 04:58 10/25/24 04:58 10/25/24 04:58 10/25/24 04:58
I&O
10/23/24 10/24/24 10/25/24
06:59 06:59 06:59
Intake Total 1220 / 1220
Balance 1220 / 1220
Physical Exam
Physical Exam
HEENT: Anicteric and Moist mucous membranes
Pulmonary: Other (Normal WOB on room air)
GI: Soft, Distended (Mildly distended) and Non Tender
Extremities: No Edema
Neuro: Non Focal
[2024-10-25] MEDS: SPIRIVA RESPIMAT 2.5 MCG 2 PUFF INH (07:23)
[2024-10-25] MEDS: SYMBICORT 160/4.5 MCG INHALER 2 PUFF INH (07:23)
[2024-10-25 08:03] LABS: Glucose - Point of Care 124 mg/dl (70-99)
[2024-10-25] MEDS: NICODERM TRANSDERMAL 14 MG TRANSDERM (08:27)
[2024-10-25] MEDS: NOVOLOG FLEXPEN-LOW RESISTANCE SC (08:27)
[2024-10-25] MEDS: TOPROL XL 50 MG PO ×2 (08:28→19:53)
[2024-10-25] MEDS: NORCO 7.5/325 1 TABLET PO ×4 (08:28→22:35)
[2024-10-25] MEDS: ZYLOPRIM 100 MG PO (08:28)
[2024-10-25] MEDS: PROTONIX IV 40 MG IV ×2 (08:32→19:45)
[2024-10-25] MEDS: NSS (PRESERVATIVE FREE) 10 ML IV ×2 (08:33→19:44)
--- NOTE | 2024-10-25 08:54 | W.PN.HOSP.TC ---
Today's Communication/Plan
-
IV Iron Await hemoglobin level today, will give more blood transfusion if HGB less than 8
ok for diet
Lokelma
Add insulin treatment to control potassium and glucose level
Assessment / Plan
Assessment / Plan
Physical Exam
General: No Apparent Distress
HEENT: NormoCephalic, Moist mucous membranes and Atraumatic
Respiratory: Clear
Cardiac: S1/S2 , Murmur
GI: Soft, Non Tender, Non Distended and Normal Bowel Sounds;
Musculoskeletal: No Clubbing, No Cyanosis
Neuro: AAO X3, Nonfocal/grossly intact, he followed commands
Psych: calm, no agitation.
A/P:
# Symptomatic acute blood loss anemia due to GI bleeding exacerbated by use of Eliquis
- Hemoglobin 5.1
No pain or nausea, tolerating diet
-Hold Eliquis
- 2 units of blood, await HGB of today, we will need more blood , agree that goal should be > 8
-N.p.o.
- Protonix 40 BID
- Low iron studies
Normal B12 & folate
- Appreciate GI help
Will ask pulmonary & cardiology for pre-procedure evaluation
#Acute hyperkalemia
Will give Lokelma
better glucose control
# Acute on CKD IIIA
No hematuria or flank pain
Monitor renal function, treating anemia will help
# chronic hypoxic respiratory failure on home O2 but reports not needing to use it regularly
# COPD
- Continue Trelegy, albuterol
# Obstructive sleep apnea
#Chronic HFpEF
Euvolemic at present time
# Type 2 diabetes
- Insulin sliding scale
# Gout
- Continue allopurinol
Permanent atrial fibrillation
- Hold Eliquis
- Continue sotalol
- Continue metoprolol, digoxin
Ventricular fibrillation status post ICD
Essential hypertension
Former alcohol use disorder
- Not drinking significantly at this time
Smoking history
-Current smoker
- Nicotine patch
Full code
DVT prophylaxis�SCDs
Total time spent to see the patient, examine the patient, review lab results and data, discuss treatment plan with patient, nursing staff around 55 minutes
Anticipated Discharge: > 48 hours
Subjective/Interval History
-
Date of Service: October 25, 2024
He feels better after blood transfusion
No active GI bleeding
No chest pain
Objective Data
-
Labs:
Laboratory Results
10/25/24
08:31
WBC Pending
Hgb Pending
Hct Pending
Plt Count Pending
Sodium Pending
Potassium Pending
Chloride Pending
Carbon Dioxide Pending
BUN Pending
Creatinine Pending
Glucose Pending
Calcium Pending
Total Bilirubin Pending
AST Pending
ALT Pending
Alkaline Phosphatase Pending
Vital Signs:
Vital Signs
Temp Pulse Resp BP Pulse Ox
97.5 F 72 18 130/59 97
10/25/24 07:55 10/25/24 08:28 10/25/24 07:55 10/25/24 08:28 10/25/24 07:55
I&O
10/24/24 10/25/24 10/26/24
06:59 06:59 06:59
Intake Total 1220 / 1220
Balance 1220 / 1220
--- NOTE | 2024-10-25 09:11 | CON.CAR ---
Addendum entered and electronically signed by Chalo Bell MD 10/25/24 10:31:
Patient seen and evaluated personally. I agree with documentation, plan of care and physical examination as noted below.
Briefly, Mr. Vigil is 64-year-old gentleman with a history of HFrEF, nonischemic cardiomyopathy, CKD, permanent A-fib with history of V-fib arrest status post ICD, HTN, COPD, pulmonary fibrosis, who presented with GI bleed. Patient's Eliquis has
been held and is undergoing GI workup including an EGD. Currently n.p.o. on IV fluids. Patient's perioperative risk is intermediate and proceed with the planned EGD as documented below.
Will continue to follow perioperatively.
Original Note:
Consultation
Consultation Request
Date/Time Consultation Requested: 10/25/2024 06:45
Date/Time Consultation Performed: 10/25/2024 09:15
Requesting Provider: Dr. Contreras
Performing Provider: ADAMARIS Anne for Dr. Bell
Reason for Consultation: GI bleeding on apixaban, preprocedure cardiac risk assessment
Medical History
-
Chief Complaint: Black stool
History of Present Illness:
Meek Og is a 64-year-old male (known to Dr. 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
COPD, and abnormal PET (lung) who presented to the emergency department complaining of black stool. He had 4 separate occasions of this. His last dose of apixaban was 10/25/2019 5 AM dose. He is symptomatic as he is endorsing fatigue and
lightheadedness. He had an episode of presyncope. ER labs notable for a hemoglobin of 5.1, hematocrit of 18.9, potassium 5.8, BUN 90, creatinine 1.9, and calcium of 7.9. Cardiology was consulted for risk assessment for EGD and GI bleeding on
apixaban. He denies chest pain and dizziness.
Past Medical History
Past Medical History: Arrhythmias (Permanent atrial fibrillation, VF [ICD, on sotalol]), CHF (recovered EF), COPD, HTN and Renal Failure (CKD)
Past Surgical History: Orthopedic
Social History
Tobacco: Smoker
Drug: None
Family History
Family History: Reviewed & Not Pertinent
Allergies / Home Medications
Allergy/AdvReac Type Severity Reaction Status Date / Time
Penicillins Allergy childhood Verified 10/24/24 10:25
�Medication �Instructions �Recorded �Confirmed �Type
allopurinol 100 mg tablet 100 mg PO DAILY Gout 02/01/23 10/24/24 History
digoxin 125 mcg (0.125 mg) tablet 0.125 mg PO MOWEFR Arrhythmia 02/01/23 10/24/24 History
sotalol 120 mg tablet 120 mg PO QPM Arrhythmia 02/01/23 10/24/24 History
apixaban 5 mg tablet (Eliquis) 5 mg PO BID Blood clot 04/05/23 10/24/24 Rx
prevention/tx #0 tabs
hydrocodone 10 mg-acetaminophen 1 tab PO QID Pain 06/11/23 10/24/24 History
325 mg tablet
dapagliflozin propanediol 10 mg 10 mg PO DAILY Heart Failure 10/24/24 10/24/24 History
tablet (Farxiga)
fluticasone fur. 200 mcg-umeclid 1 ea inhalation DAILY 10/24/24 10/24/24 History
62.5 mcg-vilant 25 mcg Lung/Breathing Issues
inhalat.powder (Trelegy Ellipta)
furosemide 20 mg tablet 20 mg PO DAILYPRN PRN ankle 10/24/24 10/24/24 History
swelling from fluid
furosemide 20 mg tablet 20 mg PO MOWEFR Fluid 10/24/24 10/24/24 History
Retention/Swelling
levalbuterol HCl 1.25 mg/3 mL 1.25 mg inhalation QIDPRN PRN 10/24/24 10/24/24 History
solution for nebulization shortness of breath
metoprolol succinate 50 mg 50 mg PO BID Heart Failure 10/24/24 10/24/24 History
tablet,extended release 24 hr
polyethylene glycol 3350 17 17 g PO DAILY PRN constipation 10/24/24 10/24/24 History
gram/dose oral powder
Physical Exam
Vital Signs
Temp Pulse Resp BP Pulse Ox
97.5 F 72 18 130/59 97
10/25/24 07:55 10/25/24 08:28 10/25/24 07:55 10/25/24 08:28 10/25/24 07:55
Impression / Plan
-
I/P: 64M with with HFrEF (recovered EF), nonischemic cardiomyopathy, CKD stage IIIb, permanent atrial fibrillation (on apixaban), VF arrest (on sotalol, ICD in place), hypertension, COPD, and abnormal PET (lung) who presented to the emergency
department complaining of black stool.
Primary pilates instructor: Dr. Davis
Cardiac risk assessment - EGD
- No anginal symptoms
- No contraindication with active bleeding
Upper GI bleed, symptomatic
- Last dose of apixaban 10/24/2024 ~08:00
- EGD per GI on 10/27/2024
- Transfusion per primary service - he may need IV furosemide with transfusions
Permanent atrial fibrillation
- Rate controlled
- No plans for rhythm control
- Oral Anticoagulation: Apixaban on hold with GIB
- [id number]: score at least (Heart failure, HTN, age 75 or more, Diabetes Mellitus, prior Stroke/TIA, Vascular disease, age 65-74, female gender)
HFrEF ,recovered EF - chronic
-He does not appear to be in decompensated heart failure
-GDMT as tolerated:
-Diuretic: Furosemide 20mg MoWeFr
-ROHITH/ARB/ARNI: None due to significant hyperkalemia in the past
-SGLT2 inhibitor: Farxiga 10 mg daily
-Aldosterone agonist: None due to significant hyperkalemia in the past
-Beta shady: Metoprolol succinate and sotalol (VF)
-Isosorbide/Hydralazine:�Not indicated
-ICD: Medtronic
-Trend daily weight, I/O, and BMP
CKD stage IIIb, with proteinuria, follows with Dr. Bauer in the outpatient setting
Suspected neoplasm of lung, abnormal PET, pulmonary evaluation was recommended at his last office visit
HTN, stable, follow
VF, suppressed on sotalol, ICD in place
COPD, no acute exacerbation, per primary
Current smoker, full cessation recommended
[2024-10-25 09:41] LABS: Hematocrit 23.0 % (39.0-52.0); Hemoglobin 6.6 g/dL (13.0-18.0); Mean Corp Hgb Conc. 28.7 g/dL (33.0-37.0); Mean Corpuscular Volume 88.1 fL (80.0-94.0); Nucleated Red Blood Cells % 1.9 % (-); Platelet Count 259 10^3/uL (130-400); Red Cell Dist. Width 18.3 % (11.5-14.5)
[2024-10-25 09:49] LABS: ALT (SGPT) < 10 U/L (0-50); AST (SGOT) 20 U/L (17-59); Albumin 3.1 g/dl (3.5-5.0); Alkaline Phosphatase 190 U/L (38-126); Blood Urea Nitrogen 79 mg/dl (9-20); Calcium 7.9 mg/dl (8.4-10.2); Carbon Dioxide 22 mmol/L (22-30); Chloride 111 mmol/L (98-107); Estimated Creatinine Clearance 40 ml/min; Glucose 123 mg/dl (70-99); Potassium 5.6 mmol/L (3.5-5.1); Sodium 138 mmol/L (135-145); Total Protein 5.9 g/dl (6.3-8.2); eGFR 36.13
--- NOTE | 2024-10-25 10:57 | CON.PUL ---
Consultation
Consultation Request
Date/Time Consultation Requested: 10/25/2024643
Date/Time Consultation Performed: 10/25/2024 - 1043
Requesting Provider: Dr. Contreras
Performing Provider: Dr. Camacho
Reason for Consultation: Preoperative risk stratification for EGD
Medical History
-
Chief Complaint: Anemia + fatigue/SOB
History of Present Illness:
64-year-old male with a past medical history of A-fib on Eliquis, class IV COPD on triple inhaler therapy, HAM pulmonary nodule, history of VF/VT arrest (10/2018) s/p ICD implantation, FLAVIO, hypertension, CKD, history of chronic systolic heart failure
with recovered LVEF, pulmonary hypertension and valvular heart disease with moderate TR and history of MR who presents for anemia. Patient's been having dark stool prior to his hospital arrival, and has been feeling fatigue for weeks. He has been
continuing to take Eliquis. Also having occasional abdominal pain. Has not been taking significant amount of NSAIDs and denies having a prior EGD done in the past. In the ER he was afebrile, hemodynamically stable with pulse rate 75 and BP
134/40, and saturating 94% on room air. Pertinent labs showed an Hb of 5.1, WBC 9.9, platelet count 299, INR 1.98, potassium 5.2, creatinine 1.9, BUN 90, and iron level <20. Patient was typed and crossed, and was started on multiple blood unit
PRBC transfusions. He was admitted to the floor, GI consulted, and given his multiple pulmonary comorbidities, pulmonary service now consulted for preprocedure evaluation/optimization.
When I saw the patient today, he was still complaining of fatigue + SOB. His cough occurs daily but it is not worse than usual. He continues to smoke 10 cigarettes a day. He does feel like he is slowly improving since he arrived here yesterday.
He has been compliant with his inhaler, Trelegy. He did previously return his NIV equipment that he was using for FLAVIO with chronic hypercapnia. He currently denies SOB at rest, chest pain, STERN, fevers or chills.
PMHx: A-fib on Eliquis, COPD on Trelegy requiring 1 L/min with exertion per prior 6MWT (October 2023), pulmonary nodule in HAM, history of V-fib arrest (October 2018), DM type II, cataracts, CKD, hypertension, FLAVIO, history of chronic systolic heart
failure now with recovered LVEF (50-55% per TTE from 08/19/2024), pulmonary hypertension (last PASP was 92 mmHg on TTE from 08/19/2024 with moderate TR, dilated RA and normal RV size/function)
PSHx: Back surgery, cataract surgery in left eye (08/2019), ICD implantation (12/23/2018)
Past Medical History
Past Medical History: Other (Above as per HPI)
Past Surgical History: Other (Above as per HPI)
Social History
Tobacco: Smoker (Active smoker of 0.5 PPD, previously smoked 1 PPD)
Alcohol: Occasional (Can be significant amount at times, reported to be up to 12 beers in 1 sitting at times)
Drug: None
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
Family History
Family History: CAD (Mother + maternal uncle) and Other
Allergies / Home Medications
Allergies
Allergy/AdvReac Type Severity Reaction Status Date / Time
Penicillins Allergy childhood Verified 10/24/24 10:25
Home Medications
�Medication �Instructions �Recorded �Confirmed �Last Taken �Type
allopurinol 100 mg tablet 100 mg PO DAILY Gout 02/01/23 10/24/24 10/24/24 History
digoxin 125 mcg (0.125 mg) tablet 0.125 mg PO MOWEFR Arrhythmia 02/01/23 10/24/24 10/24/24 History
sotalol 120 mg tablet 120 mg PO QPM Arrhythmia 02/01/23 10/24/24 10/23/24 History
apixaban 5 mg tablet (Eliquis) 5 mg PO BID Blood clot 04/05/23 10/24/24 10/24/24 Rx
prevention/tx #0 tabs
hydrocodone 10 mg-acetaminophen 1 tab PO QID Pain 06/11/23 10/24/24 10/24/24 History
325 mg tablet
dapagliflozin propanediol 10 mg 10 mg PO DAILY Heart Failure 10/24/24 10/24/24 10/24/24 History
tablet (Farxiga)
fluticasone fur. 200 mcg-umeclid 1 ea inhalation DAILY 10/24/24 10/24/24 10/24/24 History
62.5 mcg-vilant 25 mcg Lung/Breathing Issues
inhalat.powder (Trelegy Ellipta)
furosemide 20 mg tablet 20 mg PO DAILYPRN PRN ankle 10/24/24 10/24/24 Unknown History
swelling from fluid
furosemide 20 mg tablet 20 mg PO MOWEFR Fluid 10/24/24 10/24/24 10/24/24 History
Retention/Swelling
levalbuterol HCl 1.25 mg/3 mL 1.25 mg inhalation QIDPRN PRN 10/24/24 10/24/24 Unknown History
solution for nebulization shortness of breath
metoprolol succinate 50 mg 50 mg PO BID Heart Failure 10/24/24 10/24/24 10/24/24 History
tablet,extended release 24 hr
polyethylene glycol 3350 17 17 g PO DAILY PRN constipation 10/24/24 10/24/24 Unknown History
gram/dose oral powder
Review of Systems
-
History Source: Patient
All other systems: Negative unless noted
Vitals / Labs / Diagnostic Testing
Vital Signs
Temp Pulse Resp BP Pulse Ox
97.5 F 72 18 130/59 97
10/25/24 07:55 10/25/24 07:55 10/25/24 07:55 10/25/24 07:55 10/25/24 07:55
Laboratory Results
10/24/24
12:04
PT 22.6 H
INR 1.98
APTT 42.2 H
Diagnostic Testing:
Physical Exam
-
HEENT: Normocephalic and Anicteric
Cardiovascular: S1/S2, Rub (negative) and Peripheral Edema (+1 lower extremity pitting edema bilaterally)
Respiratory: Wheeze (Catron bilaterally), Rales (Bilateral), Rhonchi (negative) and Non-Labored Respirations
GI: Soft, Non Distended, Non Tender and Normal Bowel Sounds
Neurology: AO x 3 and Tremors (negative)
Skin: Warm and Dry
General: Respiratory Distress (negative), Comfortable, Chills (negative) and Sweats (negative)
Assessment
-
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
heart failure with recovered LVEF, pulmonary hypertension and valvular heart disease with moderate TR and history of MR who presents for anemia. Patient's been having dark stool prior to his hospital arrival, and has been feeling fatigue for weeks.
He has been continuing to take Eliquis. Also having occasional abdominal pain. Has not been taking significant amount of NSAIDs and denies having a prior EGD done in the past. In the ER he was afebrile, hemodynamically stable with pulse rate 75
and BP 134/40, and saturating 94% on room air. Pertinent labs showed an Hb of 5.1, WBC 9.9, platelet count 299, INR 1.98, potassium 5.2, creatinine 1.9, BUN 90, and iron level <20. Patient was typed and crossed, and was started on multiple blood
unit PRBC transfusions. He was admitted to the floor, GI consulted, and given his multiple pulmonary comorbidities, pulmonary service now consulted for preprocedure evaluation/optimization.
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
history of chronic systolic heart failure now with recovered LVEF (50-55% per TTE from 08/19/2024), NICM, pulmonary hypertension (last PASP was 92 mmHg on TTE from 08/19/2024 with moderate TR, dilated RA and normal RV size/function), history of
colonic polyps complicated by post polypectomy bleed
Impression:
#Acute gastrointestinal hemorrhage with suspected UGIB
#Acute on chronic anemia now due to acute blood loss
#Chronic anticoagulation use with Eliquis
#Preoperative pulmonary risk stratification in this patient with Class IV COPD/emphysema, PH + chronic cough with lower lobe predominant bronchial wall thickening with distal airway mucoid impaction
#Left upper lobe nodule measuring 2.2 x 1.6 x 1.4 cm (prior PET/CT in 12/2023 measured 2.8 x 2.8 cm with max SUV 21.5 (delayed 23.5) - never biopsied as pt wanted to think about it)
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
#History of FLAVIO intolerant/noncompliant to PAP therapy � overall AHI was mildly 6.1 events/hour with erasto O2 saturation 77%, however REM specific index was severely elevated at 62.1 events/hour
#Chronic hypercapnic respiratory failure (end-tidal CO2 during his PSG in July 2023 showed an average of 46 mmHg although it did go as high as 66 mmHg
#Pulmonary hypertension (last PASP was 92 mmHg on TTE from 08/19/2024 with moderate TR, dilated RA and normal RV size/function)
#Paroxysmal A-fib on Eliquis
#History of V-fib arrest (10/2017) s/p ICD for secondary prevention (12/2017) now on sotalol
#DM type II
#CKD
#Hypertension
Plan:
- Although he is currently endorsing SOB, he says that it does not feel like a COPD exacerbation, as his cough is at baseline, and is currently requiring 2 L/min (is prescribed 1L O2 at home w/ activity)
- Hence, SOB currently is due to his acute blood loss as he has symptomatic anemia from suspected UGIB given dark stool prior to arrival with ongoing fatigue and significant anemia that has been persisting despite multiple blood transfusions since
hospital admission
- He is pending EGD for this Sunday --> given his pulmonary and cardiac comorbidities, he is high risk for a low�intermediate risk procedure; no further optimization is needed prior to endoscopy can be performed; here are additional recommendations
leading up to procedure that should be followed:
- Continue with inhalers listed below; consider giving a dose of Decadron preoperatively; continue with nicotine patch to help prevent nicotine withdrawal symptoms going into endoscopy
- If patient is intubated during endoscopy, use low tidal volume strategy between 4-6 cc/kg/IBW, and titrate PEEP + FiO2 to maintain plateau pressure <30 and SpO2 88-95%; beware for his history of hypercapnia and REM�related FLAVIO -hence if he is
significantly sedated he may be very difficult to arouse, in which case additional time off sedation will be the best option and may need to place onto BiPAP after extubation to assure his pCO2 remained stable while checking serial blood gases, or
hooking up to ETCO2 continuous capnography
- Need to be aware that he does have chronic wheezing (reviewed below)
- Despite him having this HAM nodule, there is no threat to his large airways and all central + distal airways are patent from most recent CT chest on 05/17/2024.
- Given that we have no imaging this hospitalization, I will check a CXR tomorrow
- His ARISCAT score is intermediate/13.3% risk of in-hospital postop pulmonary complications
- He is currently wheezing however he has chronic wheezing, heard on multiple prior visits in outpatient pulmonary office- explained by his continued tobacco smoking use with chronic cough and his bronchiolitis seen on imaging; most recent
spirometry performed on 04/04/2024 showed very severe COPD with post-bronchodilator FEV1: 1.07 L / 29% predicted; also with concomitant severe restrictive defect with post-BD FVC: 1.95 L / 39% predicted.
- Continue with Symbicort 160 mcg + Spiriva Respimat 2.5mcg and prn nebulized albuterol
- Would hold off on systemic steroids, as I do worry if we start him on steroids that this could worsen his GI bleed
- Continue with supplemental O2, reducing dose as tolerated while maintaining SpO2 88-95%; check ambulatory pulse oximetry prior to discharge
- I will check a blood gas tomorrow to assess his pH and pCO2 as we have no recent blood gas data
- Defer treatment of GI bleed to GI team + hospitalist
- Large-bore IV x 2, hold all blood thinners until deemed appropriate to start per GI team
- PPI 40mg IV BID
- Trend H/H and transfuse if needed to keep Hb>7-8g/dL; keep plt>50k, INR<1.8; hold Eliquis
- Cardiology also consulted given patient's history of A-fib on Eliquis + Hx of VF arrest on sotalol
- Incentive spirometer encouraged q1hr while awake
- Replete electrolytes with K>4, Mg>2
- Maintain euglycemia with goal BG >100 and <180
- PT/OT, once bleed has been stabilized
- DVT ppx: SCDs only for now; holding Eliquis in setting of acute GIB
Pulmonary service will continue to follow along. Recommend patient follow-up with our pulmonary office again after discharge, as Dr. Ashby was reviewing his known left upper lobe nodule and had been urging the patient to get a biopsy, however
patient has been wanting to think about it and has not followed up since April 2024. I do strongly recommend that the patient follow-up with our office and seriously discuss the risks and benefits of obtaining a left upper lobe biopsy vs
continued radiographic surveillance.
(Patient was seen and evaluated on 10/25/2024). Total time spent today was 56 minutes for this encounter. Time includes reviewing laboratory test/imaging results, reviewing pertinent medical records, obtaining and reviewing medical history,
performing an appropriate exam, ordering medications, tests and procedures. Time also includes documentation of this encounter, coordinating patient care and communicating with other healthcare professionals. Total time does not include separately
billed tests performed on this date of service.
[2024-10-25 11:36] LABS: Glucose - Point of Care 225 mg/dl (70-99)
[2024-10-25 11:40] LABS: Anisocytosis Slight; Normal RBC Morphology No
[2024-10-25 11:41] LABS: Hypochromasia +1; Macrocytosis +1
[2024-10-25 11:42] LABS: Basophilic Stippling Slight
[2024-10-25 11:43] LABS: Ovalocytes +1; Target Cells +1
[2024-10-25] MEDS: LOKELMA 10 GRAM PO (11:43)
[2024-10-25] MEDS: LANTUS 0.1 UNITS SC (11:44)
[2024-10-25 12:04] LABS: Glycohemoglobin (HgbA1c) 5.0 % (4.0-5.6)
[2024-10-25] MEDS: NOVOLOG FLEXPEN-LOW RESISTANCE 2 UNITS SC (13:27)
[2024-10-25] MEDS: FERRLECIT 110 MG IV (15:40)
[2024-10-25 16:34] LABS: Glucose - Point of Care 156 mg/dl (70-99)
[2024-10-25] MEDS: NOVOLOG FLEXPEN-LOW RESISTANCE 1 UNITS SC (17:03)
[2024-10-25] MEDS: BETAPACE 120 MG PO (17:04)
[2024-10-25 19:00] LABS: Hematocrit 27.5 % (39.0-52.0); Hemoglobin 8.1 g/dL (13.0-18.0); Mean Corp Hgb Conc. 29.5 g/dL (33.0-37.0); Mean Corpuscular Volume 88.4 fL (80.0-94.0); Platelet Count 224 10^3/uL (130-400); Red Cell Dist. Width 17.5 % (11.5-14.5)
[2024-10-25] MEDS: SYMBICORT 160/4.5 MCG INHALER INH (20:05)
[2024-10-25 21:59] LABS: Glucose - Point of Care 127 mg/dl (70-99)
[2024-10-26 03:00] VITALS: BP 128/67
[2024-10-26 05:56] VITALS: BMI 25.5
--- NOTE | 2024-10-26 06:22 | W.PN.GI.CBS2 ---
Today's Communication / Plan
-
Hgb remains stable, suspect recent melena from prior old blood. Plan for EGD tomorrow, 10/27/24, for further evaluation. Keep NPO at [place]. See rest of care as outlined below.
Assessment / Plan
-
#Symptomatic Anemia
#Acute Blood Loss Anemia
#Melena #C/f UGIB
#A Fib (on eliquis)
#Hx of Colon Polyps c/b #Post-polypectomy Bleed (2023- at [facility])
Impression: Mr. Og is a 64 y.o male with a past medical history of HTN, DM II, CKD, HFpEF, hx of V Fib (s/p ICD), A Fib (on eliquis) and history of colon polyps with hx of post-polypectomy bleed who presented to the ED with dark stools and
symptomatic anemia. Denies any prior history of similar symptoms in the past, although notes a prior history of post-polypectomy bleeding at [facility] (unable to review prior regards regarding this). Otherwise, he notes having dark brown and black stools
for a few days along with occasional abdominal pain. He denies any significant NSAIDs or prior EGD in the past. He is on eliquis and lost dose was on 10/24. In the ED, patient was HD-stable and found to have labs revealing a Hgb 5s with prior Hgb 10s
back on 07/2024 along with elevated BUN:Board Mill Supervisor ratio. Etiology seems concerning for UGIB secondary to possible PUD versus gastroduodenal erosions vs gastroduodenal AVMs versus gastroduodenitis. Clinically, doubt brisk UGIB and no other history of liver
disease making variceal GIB much less likely. Doubt LGIB based on his presentation although was previously advised to have a follow-up colonoscopy due to his prior colon polyps. Currently, he remains HD-stable without any melena or maroon colored
stools since his admission.
S/p total of 2 additional uPRBCs on 10/24 (total of 4 uPRBCs since admission) with Hgb 6.6 -> 8.1. Repeat Hgb stable with Hgb 8.1 -> 8.0 this AM. One episode of melena on evening of 10/25 but without any further significant melena or maroon colored
stools. Continues to remain HD-stable and suspect recent melena likely from old blood as without any further episodes and stable H/h.
Recommendations:
- Okay for diet as tolerated. Keep NPO at MN
- Ensure two large bore IVs at all times
- Trend Hgb with serial CBC, transfuse for goal Hgb > 8.0
- Continue IV PPI 40 mg BiD
- Agree with IV iron given low iron sat and ferritin (7s)
- Plan for EGD tomorrow, 10/27/24, given need to allow for 2-day washout given eliquis. Discussed benefits and risks of procedure again this AM
- If EGD is unremarkable, would still consider pursuing a colonoscopy however patient opted to defer this given his prior hx of previous post-polypectomy bleeding in the past (at [facility])
- Continue to hold eliquis while inpatient (last dose 10/24)
- Evaluated by Pulmonary and Cardiology, reviewed risk stratification
- Notify GI if any evidence of overt GI bleeding over weekend
- Rest of care as per primary team
GI will continue to follow. Please call with any questions or concerns.
-
Subjective
Subjective
Date of Service: October 26, 2024
- S/p total of 2 additional uPRBCs on 10/24 (total of 4 uPRBCs since admission) with Hgb 6.6 -> 8.1
- Repeat Hgb stable with Hgb 8.1 -> 8.0
- Otherwise, remains HD-stable without evidence of tachycardia, reported having dark black stools
Feeling well, resting comfortably this AM. Had one episode of dark, black tarry stool last evening. First episode since admission. Denies any further melena or maroon colored stools. No other abdominal pain or nausea/vomiting.
Objective
Data Reviewed
Laboratory Data:
Laboratory Results
PT 22.6 Sec (11.4-14.6) H 10/24/24 12:04
INR 1.98 10/24/24 12:04
APTT 42.2 Sec (23.4-35.0) H 10/24/24 12:04
Total Bilirubin 0.7 mg/dl (0.2-1.3) 10/25/24 08:31
AST 20 U/L (17-59) 10/25/24 08:31
ALT < 10 U/L (0-50) 10/25/24 08:31
Alkaline Phosphatase 190 U/L (38-126) H 10/25/24 08:31
Vital Signs and I&O:
Vital Signs
Temp Pulse Resp BP Pulse Ox
97.6 F 65 20 128/67 95
10/26/24 03:00 10/26/24 03:00 10/26/24 03:00 10/26/24 03:00 10/26/24 03:00
I&O
10/24/24 10/25/24 10/26/24
06:59 06:59 06:59
Intake Total 1220 / 1220 2420 / 2420
Balance 1220 / 1220 2420 / 2420
Physical Exam
Physical Exam
HEENT: Anicteric and Moist mucous membranes
Pulmonary: Other (Normal WOB on room air)
GI: Soft, Non Distended and Non Tender
Extremities: No Edema
Neuro: Non Focal
[2024-10-26] MEDS: NORCO 7.5/325 1 TABLET PO ×4 (06:25→21:18)
[2024-10-26 07:15] LABS: Venous Blood Gas B.E. -6.2 mmol/L (-4 to +4); Venous Blood Gas O2 Sat % 98.7 %
[2024-10-26 07:18] LABS: Hematocrit 26.5 % (39.0-52.0); Hemoglobin 8.0 g/dL (13.0-18.0); Mean Corp Hgb Conc. 30.2 g/dL (33.0-37.0); Mean Corpuscular Volume 88.0 fL (80.0-94.0); Platelet Count 204 10^3/uL (130-400); Red Cell Dist. Width 17.4 % (11.5-14.5)
[2024-10-26 07:24] LABS: Glucose - Point of Care 106 mg/dl (70-99)
[2024-10-26] MEDS: SPIRIVA RESPIMAT 2.5 MCG 2 PUFF INH (07:46)
[2024-10-26] MEDS: SYMBICORT 160/4.5 MCG INHALER 2 PUFF INH (07:47)
[2024-10-26] MEDS: NOVOLOG FLEXPEN-LOW RESISTANCE SC ×3 (07:49→17:42)
[2024-10-26] MEDS: NICODERM TRANSDERMAL 14 MG TRANSDERM (07:49)
[2024-10-26] MEDS: PROTONIX IV 40 MG IV ×2 (07:52→19:40)
[2024-10-26] MEDS: NSS (PRESERVATIVE FREE) 10 ML IV ×2 (07:52→19:40)
[2024-10-26 07:53] LABS: Blood Urea Nitrogen 71 mg/dl (9-20); Calcium 7.8 mg/dl (8.4-10.2); Carbon Dioxide 20 mmol/L (22-30); Chloride 112 mmol/L (98-107); Estimated Creatinine Clearance 40 ml/min; Glucose 98 mg/dl (70-99); Magnesium 2.3 mg/dl (1.6-2.3); Potassium 5.3 mmol/L (3.5-5.1); Sodium 138 mmol/L (135-145); eGFR 36.13
[2024-10-26] MEDS: TOPROL XL 50 MG PO ×2 (07:54→19:41)
[2024-10-26] MEDS: ZYLOPRIM 100 MG PO (07:54)
[2024-10-26] MEDS: NORCO 7.5/325 PO (08:04)
[2024-10-26 08:09] VITALS: BP 130/55
--- NOTE | 2024-10-26 08:57 | W.PN.HOSP.TC ---
Today's Communication/Plan
-
CBC & BMP in AM
Lokelma
Chest x ray for pre-procedure
NPO past MN
Adjust Vicodin to home schedule
IV Iron
Assessment / Plan
Assessment / Plan
Physical Exam
General: No Apparent Distress
HEENT: NormoCephalic, Moist mucous membranes and Atraumatic
Respiratory: Clear
Cardiac: S1/S2 , Murmur
GI: Soft, Non Tender, Non Distended and Normal Bowel Sounds;
Musculoskeletal: No Clubbing, No Cyanosis
Neuro: AAO X3, Nonfocal/grossly intact, he followed commands
Psych: calm, no agitation.
A/P:
# Symptomatic acute blood loss anemia due to GI bleeding exacerbated by use of Eliquis
- Hemoglobin 5.1
No pain or nausea, tolerating diet
-Hold Eliquis
- s/p 4 units of blood, HGB goal should be > 8
-N.p.o. past MN, EGD 10/27
- Protonix 40 BID
- Low iron studies
Normal B12 & folate
- Appreciate GI help
Cardiology for pre-procedure evaluation
#Acute hyperkalemia
To give another dose Lokelma
To aim at better glucose control
# Chronic pain syndrome with opiate dependency
Pt wanted Vicodin certain hours, adjusted that with pharmacy
He denies worsening pain
# Acute on CKD IIIb
No hematuria or flank pain
Monitor renal function, treating anemia will help
# chronic hypoxic respiratory failure on home O2 but reports not needing to use it regularly
# COPD
- Continue Trelegy, albuterol
Chest x ray
Pulmonary consulted for pre-procedure evaluation
# Obstructive sleep apnea
#Chronic HFpEF
Euvolemic at present time
Consulted Cardiology for pre-procedure evaluation
# Type 2 diabetes
- Insulin sliding scale
# Gout
- Continue allopurinol
#Permanent atrial fibrillation/ Ventricular fibrillation status post ICD
- Hold Eliquis
- Continue sotalol
- Continue metoprolol, digoxin
#Essential hypertension
#Former alcohol use disorder
- Not drinking significantly at this time
#Smoking history
-Current smoker
- Nicotine patch
Full code
DVT prophylaxis�SCDs
Total time spent to see the patient, examine the patient, review lab results and data, discuss treatment plan with patient, nursing staff around 55 minutes
Anticipated Discharge: > 48 hours
Subjective/Interval History
-
Date of Service: October 26, 2024
No abdominal pain
No nausea, tolerating diet
No active rectal bleeding
Objective Data
-
Labs:
Laboratory Results
10/26/24
07:00
WBC 8.5
Hgb 8.0 L
Hct 26.5 L
Plt Count 204
Sodium 138
Potassium 5.3 H
Chloride 112 H
Carbon Dioxide 20 L
BUN 71 H
Creatinine 2.0 H
Glucose 98
Calcium 7.8 L
Vital Signs:
Vital Signs
Temp Pulse Resp BP Pulse Ox
97.7 F 63 16 130/55 95
10/26/24 08:09 10/26/24 08:09 10/26/24 08:09 10/26/24 08:09 10/26/24 08:09
I&O
10/25/24 10/26/24 10/27/24
06:59 06:59 06:59
Intake Total 1220 / 1220 2420 / 2420
Balance 1220 / 1220 2420 / 2420
--- NOTE | 2024-10-26 11:06 | W.PN.CD ---
Today's Communication / Plan
-
- EGD in AM
Impression / Plan
-
I/P: 64M with with HFrEF (recovered EF), nonischemic cardiomyopathy, CKD stage IIIb, permanent atrial fibrillation (on apixaban), VF arrest (on sotalol, ICD in place), hypertension, COPD, and abnormal PET (lung) who presented to the emergency
department complaining of black stool.
Primary consumer loan manager: Dr. Davis
Cardiac risk assessment - EGD
- No anginal symptoms
- No contraindication with active bleeding - Planned for tomorrow.
Upper GI bleed, symptomatic
- Last dose of apixaban 10/24/2024 ~08:00
- EGD per GI on 10/27/2024
- Transfusion per primary service - he may need IV furosemide with transfusions
Permanent atrial fibrillation
- Rate controlled
- No plans for rhythm control
- Oral Anticoagulation: Apixaban on hold with GIB
- [id number]: score at least (Heart failure, HTN, age 75 or more, Diabetes Mellitus, prior Stroke/TIA, Vascular disease, age 65-74, female gender)
HFrEF ,recovered EF - chronic
-He does not appear to be in decompensated heart failure
-GDMT as tolerated:
-Diuretic: Furosemide 20mg MoWeFr
-ROHITH/ARB/ARNI: None due to significant hyperkalemia in the past
-SGLT2 inhibitor: Farxiga 10 mg daily
-Aldosterone agonist: None due to significant hyperkalemia in the past
-Beta shady: Metoprolol succinate and sotalol (VF)
-Isosorbide/Hydralazine:�Not indicated
-ICD: Medtronic
-Trend daily weight, I/O, and BMP
CKD stage IIIb, with proteinuria, follows with Dr. Bauer in the outpatient setting
Suspected neoplasm of lung, abnormal PET, pulmonary evaluation was recommended at his last office visit
HTN, stable, follow
VF, suppressed on sotalol, ICD in place
COPD, no acute exacerbation, per primary
Current smoker, full cessation recommended
Physical Exam
Vital Signs/Labs
Vital Signs
Temp Pulse Resp BP Pulse Ox
97.7 F 63 16 130/55 95
10/26/24 08:09 10/26/24 08:09 10/26/24 08:09 10/26/24 08:09 10/26/24 08:09
10/25/24 10/26/24 10/27/24
06:59 06:59 06:59
Actual Weight 85.7 kg 85.275 kg
10/26/24 07:00
10/26/24 07:00
PT 22.6 Sec (11.4-14.6) H 10/24/24 12:04
INR 1.98 10/24/24 12:04
APTT 42.2 Sec (23.4-35.0) H 10/24/24 12:04
Magnesium 2.3 mg/dl (1.6-2.3) 10/26/24 07:00
10/26/24
07:00
[id number] Pept 2330
Physical Exam
Constitutional: No acute distress and Comfortable
EENT: Anicteric and Moist mucous membranes
Cardiovascular: JVD pressure is normal, Rhythm/rate is irregular (slow RVR) and Pedal edema present
Respiratory: Respiratory effort normal and Lungs clear to auscul.
GI: Soft, Non tender and Normal bowel sounds
Neuro/Psych: Alert, Oriented and AO x 3
Data Reviewed
-
Date of Service: October 26, 2024
Medical Decision Making: Reviewed Test Results, Test Interpretation and Review of Case with other Provider
EKG: Tracing Personally Visualized and interpreted
Echo: Report Reviewed by me
Labs: Labs Reviewed by me
Old Records: Reviewed
[2024-10-26 12:03] VITALS: BP 130/53
[2024-10-26 12:38] LABS: Glucose - Point of Care 106 mg/dl (70-99)
[2024-10-26] MEDS: FERRLECIT 110 MG IV (13:18)
[2024-10-26] MEDS: LOKELMA 10 GRAM PO ×2 (13:23→17:56)
[2024-10-26] MEDS: NICORETTE 2 MG PO (13:58)
[2024-10-26 16:06] VITALS: BP 139/60
--- NOTE | 2024-10-26 16:21 | W.PN.PUL3 ---
Today's Communication / Plan
-
NPO past midnight for EGD tomorrow
PPI
Large-bore IV x2
Trial of nocturnal BiPAP given mild acute component of chronic hypercapnia in addition to metabolic acidosis
Symbicort + Spiriva with prn nebulizer butyryl
Nicotine patch
Strongly urged him to follow-up with Dr. Ashby in the pulmonary office, as he has a known HAM nodule which is high risk for malignancy
Patient is high risk for his EGD, although he is optimized from a pulmonary perspective at this juncture (on room air, breathing comfortably, improved wheezing today, which is chronic)
Pulmonary service will continue to briefly follow along
Assessment
-
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
heart failure with recovered LVEF, pulmonary hypertension and valvular heart disease with moderate TR and history of MR who presents for anemia. Patient's been having dark stool prior to his hospital arrival, and has been feeling fatigue for weeks.
He has been continuing to take Eliquis. Also having occasional abdominal pain. Has not been taking significant amount of NSAIDs and denies having a prior EGD done in the past. In the ER he was afebrile, hemodynamically stable with pulse rate 75
and BP 134/40, and saturating 94% on room air. Pertinent labs showed an Hb of 5.1, WBC 9.9, platelet count 299, INR 1.98, potassium 5.2, creatinine 1.9, BUN 90, and iron level <20. Patient was typed and crossed, and was started on multiple blood
unit PRBC transfusions. He was admitted to the floor, GI consulted, and given his multiple pulmonary comorbidities, pulmonary service now consulted for preprocedure evaluation/optimization.
Chronic conditions PLAY READER: A-fib on Eliquis, COPD on Trelegy requiring 1 L/min with exertion per prior 6MWT (October 2023), pulmonary nodule in HAM, history of V-fib arrest (October 2018) now on sotalol, DM type II, cataracts, CKD, hypertension, FLAVIO,
history of chronic systolic heart failure now with recovered LVEF (50-55% per TTE from 08/19/2024), NICM, pulmonary hypertension (last PASP was 92 mmHg on TTE from 08/19/2024 with moderate TR, dilated RA and normal RV size/function), history of
colonic polyps complicated by post polypectomy bleed
Impression:
#Acute gastrointestinal hemorrhage with suspected UGIB
#Acute on chronic anemia now due to acute blood loss
#Chronic anticoagulation use with Eliquis
#Preoperative pulmonary risk stratification in this patient with Class IV COPD/emphysema, PH + chronic cough with lower lobe predominant bronchial wall thickening with distal airway mucoid impaction
#Left upper lobe nodule measuring 2.2 x 1.6 x 1.4 cm (prior PET/CT in 12/2023 measured 2.8 x 2.8 cm with max SUV 21.5 (delayed 23.5) - never biopsied as pt wanted to think about it)
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
#History of FLAVIO intolerant/noncompliant to PAP therapy � overall AHI was mildly 6.1 events/hour with erasto O2 saturation 77%, however REM specific index was severely elevated at 62.1 events/hour
#Chronic hypercapnic respiratory failure (end-tidal CO2 during his PSG in July 2023 showed an average of 46 mmHg although it did go as high as 66 mmHg)
#Pulmonary hypertension (last PASP was 92 mmHg on TTE from 08/19/2024 with moderate TR, dilated RA and normal RV size/function)
#Paroxysmal A-fib on Eliquis
#History of V-fib arrest (10/2017) s/p ICD for secondary prevention (12/2017) now on sotalol
#DM type II
#CKD
#Hypertension
Plan:
- Patient currently not experiencing a COPD exacerbation as his cough is at baseline, and is currently on room air (was on 2 L/min on 10/25, and he is prescribed 1L O2 at home w/ activity)
- Hence, his initial SOB was due to his acute blood loss with symptomatic anemia from suspected UGIB given dark stool prior to arrival with ongoing fatigue and significant anemia that has been persisting despite multiple blood transfusions since
hospital admission
He is pending EGD for tomorrow --> given his pulmonary and cardiac comorbidities, he is high risk for a low�intermediate risk procedure
- His ARISCAT score is intermediate/13.3% risk of in-hospital postop pulmonary complications
- No further optimization is needed prior to endoscopy can be performed; here are additional recommendations leading up to procedure that should be followed:
- Continue with inhalers listed below; consider giving a dose of Decadron pre-operatively; continue with nicotine patch to help prevent nicotine withdrawal symptoms going into endoscopy
- If patient is intubated during endoscopy, use low tidal volume strategy between 4-6 cc/kg/IBW, and titrate PEEP + FiO2 to maintain plateau pressure <30 and SpO2 88-95%; beware for his history of hypercapnia and REM�related FLAVIO - hence if he is
significantly sedated he may be very difficult to arouse, in which case additional time off sedation will be the best option and may need to place onto BiPAP after extubation to assure his pCO2 remains stable while checking serial blood gases, or
hooking up to ETCO2 continuous capnography
- Need to be aware that he does have chronic wheezing (reviewed below)
- Despite him having this HAM nodule, there is no threat to his large airways and all central + distal airways are patent from most recent CT chest on 05/17/2024.
- He is currently wheezing however this is chronic, heard on multiple prior visits in outpatient pulmonary office with Dr. Ashby - this is explained by his continued tobacco smoking use with chronic cough and his bronchiolitis seen on imaging; most
recent spirometry performed on 04/04/2024 showed very severe COPD with post-bronchodilator FEV1: 1.07 L / 29% predicted; also with concomitant severe restrictive defect with post-BD FVC: 1.95 L / 39% predicted.
- Continue with Symbicort 160 mcg + Spiriva Respimat 2.5mcg and prn nebulized albuterol
- Would hold off on systemic steroids, as I do worry if we start him on steroids that this could increase risk of a more severe GI bleed
- Maintain SpO2 88-95% with supplemental O2 as needed; check ambulatory pulse oximetry prior to discharge
- Blood gas today mainly reflects metabolic acidosis with an acute on chronic respiratory acidosis (baseline serum bicarbonate level is between 30�36)
- Check for causes of metabolic acidosis including lactate + beta-hydroxybutyrate
- Start BiPAP with sleep although he says that he will 'try,' but that he likely will not be able to tolerate it
- Defer treatment of GI bleed to GI team + hospitalist
- Large-bore IV x 2, hold all blood thinners until deemed appropriate to start per GI team
- PPI 40mg IV BID
- Trend H/H and transfuse if needed to keep Hb>7-8g/dL; keep plt>50k, INR<1.8; hold Eliquis
- Cardiology also consulted given patient's history of A-fib on Eliquis + Hx of VF arrest on sotalol
- Incentive spirometer encouraged q1hr while awake
- Replete electrolytes with K>4, Mg>2
- Maintain euglycemia with goal BG >100 and <180; HbA1c: 5 on 10/25/2024
- PT/OT, once bleed has been stabilized
- DVT ppx: SCDs only for now; holding Eliquis in setting of acute GIB
Pulmonary service will continue to follow along. Recommend patient follow-up with our pulmonary office again after discharge, as Dr. Ashby was reviewing his known left upper lobe nodule and had been urging the patient to get a biopsy, however
patient has been wanting to think about it and has not followed up since April 2024. I do strongly recommend that the patient follow-up with our office and seriously discuss the risks and benefits of obtaining a left upper lobe biopsy vs
continued radiographic surveillance. On 10/26 Dr. Camacho reinforced this, and also spoke with his and answered all her questions.
Total time spent today was 39 minutes for this encounter. Time includes reviewing laboratory test/imaging results, reviewing pertinent medical records, obtaining and reviewing medical history, performing an appropriate exam, ordering medications,
tests and procedures. Time also includes documentation of this encounter, coordinating patient care and communicating with other healthcare professionals. Total time does not include separately billed tests performed on this date of service.
Subjective Data
-
Date of Service:
Date of Service: October 26, 2024
Chief Complaint: Pulmonary Follow Up
Subjective:
Patient seen and evaluated today at bedside (late note entry). Hb this morning was 8. He feels well, denies shortness of breath today. Also denies chest pain, STERN, nausea, fevers or chills. Last transfusion was yesterday at 1320.
Review of Systems
General: Other (Negative unless mentioned above)
Objective Data
Data Reviewed
Vital Signs / I&O / Oxygen:
Vital Signs
Temp Pulse Resp BP Pulse Ox
97.7 F 63 16 130/55 95
10/26/24 08:09 10/26/24 08:09 10/26/24 08:09 10/26/24 08:09 10/26/24 08:09
Intake and Output
10/25/24 10/26/24 10/27/24
06:59 06:59 06:59
Intake Total 1220 / 1220 2420 / 2420
Balance 1220 / 1220 2420 / 2420
SaO2 95
Nasal Cannula flow liters per 2
minute
Physical Exam
General: Respiratory Distress (negative), Comfortable, Chills (negative) and Sweats (negative)
HEENT: Normocephalic and Anicteric
Cardiovascular: Irregular Rhythm and Peripheral Edema (negative)
Respiratory: Crackles (Bilaterally), Rhonchi (Bilaterally) and Non-Labored Respirations
GI: Soft, Non Distended, Non Tender and Normal Bowel Sounds
Neurology: Awake, Alert, Oriented and Tremors (negative)
Skin: Warm, Dry, Cyanosis (negative) and Jaundice (negative)
Labs/Micro/Reports
Lab Data
10/26/24 07:00
10/26/24 07:00
Microbiology
10/25/24 05:38 Nose MRSA Screen - Final
No Methicillin Resistant Staphylococcus aureus isolated.
[2024-10-26 17:07] LABS: Glucose - Point of Care 122 mg/dl (70-99)
[2024-10-26] MEDS: BETAPACE 120 MG PO (17:56)
[2024-10-26 19:42] VITALS: BP 134/62
[2024-10-26] MEDS: SYMBICORT 160/4.5 MCG INHALER INH (20:00)
[2024-10-26 21:18] LABS: Glucose - Point of Care 158 mg/dl (70-99)
--- NOTE | 2024-10-26 22:22 | RESPNOTE ---
PT was ordered BIPAP for HS use and PT was unsure about it. He asked if we had a nasal mask and I told him that we did and I brought one up to him. He said that he would give it a try and I told him that i would come back for HS placement. When I
came back, he was unwilling to even give it a try and told me that he decided not to wear it.
[2024-10-26 23:08] VITALS: BP 130/81
[2024-10-27] VITALS (8 sets, daily range): BP systolic 16–146; BP diastolic 51–62; BMI 26.0
[2024-10-27] MEDS: NORCO 7.5/325 1 TABLET PO ×4 (04:57→21:29)
[2024-10-27 05:51] LABS: B.E. -3.2 mmol/L; HCO3 23.5 mmol/L (21-28); O2 Saturation % 93.7 % (94-98); PCO2 50 mmHg (35-48); PO2 61 mmHg (83-108)
[2024-10-27 07:23] LABS: Glucose - Point of Care 105 mg/dl (70-99)
[2024-10-27 07:34] LABS: Hematocrit 26.1 % (39.0-52.0); Hemoglobin 7.6 g/dL (13.0-18.0); Mean Corp Hgb Conc. 29.1 g/dL (33.0-37.0); Mean Corpuscular Volume 89.4 fL (80.0-94.0); Platelet Count 197 10^3/uL (130-400); Red Cell Dist. Width 18.0 % (11.5-14.5)
[2024-10-27] MEDS: NOVOLOG FLEXPEN-LOW RESISTANCE SC ×2 (07:58→11:45)
[2024-10-27] MEDS: ZYLOPRIM 100 MG PO (07:58)
[2024-10-27] MEDS: NICODERM TRANSDERMAL 14 MG TRANSDERM (07:58)
[2024-10-27] MEDS: PROTONIX IV 40 MG IV ×2 (07:59→21:19)
[2024-10-27] MEDS: TOPROL XL 50 MG PO ×2 (07:59→21:24)
[2024-10-27] MEDS: NSS (PRESERVATIVE FREE) 10 ML IV ×2 (07:59→21:19)
[2024-10-27] MEDS: LASIX 20 MG PO (08:03)
[2024-10-27] MEDS: SYMBICORT 160/4.5 MCG INHALER 2 PUFF INH ×2 (08:04→20:23)
[2024-10-27] MEDS: SPIRIVA RESPIMAT 2.5 MCG 2 PUFF INH (08:05)
[2024-10-27 10:06] LABS: Blood Urea Nitrogen 59 mg/dl (9-20); Carbon Dioxide 25 mmol/L (22-30); Chloride 110 mmol/L (98-107); Estimated Creatinine Clearance 40 ml/min; Glucose 96 mg/dl (70-99); Sodium 139 mmol/L (135-145); eGFR 36.13
[2024-10-27 10:13] LABS: Glucose - Point of Care 122 mg/dl (70-99)
[2024-10-27 10:16] LABS: Potassium 5.1 mmol/L (3.5-5.1)
[2024-10-27 10:28] LABS: Calcium 7.9 mg/dl (8.4-10.2)
[2024-10-27 11:11] LABS: Glucose - Point of Care 110 mg/dl (70-99)
--- NOTE | 2024-10-27 11:13 | WOUNDNOTE ---
R MEDIAL LOWER LEG
--- NOTE | 2024-10-27 11:13 | WOUNDNOTE ---
L LATERAL LOWER LEG
--- NOTE | 2024-10-27 11:15 | WOUNDNOTE ---
WON RN note: Patient admitted with upper GI bleed.
See H&P for complete history. Lives at home with .
PMH: Past Medical History: Reports Other (COPD, obstructive sleep apnea, permanent atrial fibrillation on Eliquis, HFpEF, type 2 diabetes, gout, ventricular fibrillation status post ICD, hypertension, CKD 3, alcohol use disorder, smoking history)
Wound Location and type/assessment: Patient admitted with: R lower leg with dried up weeping area, scant garrido crusty drainage on dressing. R knee with healed abrasion, patient states he was changing a fence and scraped leg. L lateral lower leg with
small venous ulcer, base garrido, small serous drainage. Trace edema in legs, non palpable pedal pulses. + pedal pulse audible with Doppler on L, R + with Doppler on posterior tibial only. Heels are blanchable red. Patient states he does not wear
compression at home. Patient turned self to side, sacrum intact.
Appetite: NPO for testing.
Pressure redistribution devices in place: On Pixowl care air bed, can be on Accumax. Pillow under calves.
Plan: Local wound care applied, will order Santyl for L leg wound and mineral oil to moisturize legs. Recommended to Dr. Latham may want to consider GENI/TBI studies to determine if compression appropriate. Encouraged patient and at bedside to
attempt smoking cessation. states she has tried but unable to give up.
Confirmed orders with hospitalist and updated nurse Jasmin. Updated care plan and will follow as needed.
Note to case management of equipment requested for discharge: Patient does own wound care.
Recommend follow up at wound care center upon discharge.
[2024-10-27 11:45] LABS: Glucose - Point of Care 100 mg/dl (70-99)
[2024-10-27] MEDS: LANOXIN 125 MCG PO (12:00)
--- NOTE | 2024-10-27 12:37 | CM ---
Chart reviewed. Care ongoing at this time
Patient on room air, pulmonary following
EGD today
PT/OT when medically able
Plan: Home, poss VN needs
--- NOTE | 2024-10-27 12:46 | W.PN.HOSP.TC ---
Today's Communication/Plan
-
Continue with clears only
Restart Eliquis and monitor
Repeat CBC later today
GI recs
Continue with PPI
GENI/TBI
Assessment / Plan
Assessment / Plan
Physical Exam
General: No Apparent Distress
HEENT: NormoCephalic, Moist mucous membranes and Atraumatic
Respiratory: Clear
Cardiac: S1/S2 , Murmur
GI: Soft, Non Tender, Non Distended and Normal Bowel Sounds;
Musculoskeletal: No Clubbing, No Cyanosis
Neuro: AAO X3, Nonfocal/grossly intact, he followed commands
Psych: calm, no agitation.
A/P:
# Symptomatic acute blood loss anemia due to GI bleeding exacerbated by use of Eliquis
- Hemoglobin 5.1 on admission
No pain or nausea, tolerating diet
-Hold Eliquis
- s/p 4 units of blood,
- EGD report noted and discussed with gastroenterology. Gastroenterology recommended colonoscopy if with any frequent rebleeding. Okay to restart Eliquis tonight and monitor. Continue with clears for now.
- Protonix 40 BID
- Low iron studies
- Normal B12 & folate
- Appreciate GI help
#Acute hyperkalemia
Resolved
# Chronic pain syndrome with opiate dependency
Pt wanted Vicodin certain hours, adjusted that with pharmacy
He denies worsening pain
# Acute on CKD IIIb
No hematuria or flank pain
Monitor renal function, treating anemia will help
# chronic hypoxic respiratory failure on home O2 but reports not needing to use it regularly
# COPD
- Continue Trelegy, albuterol
Chest x ray
Pulmonary pulmonary following
#Suspected PAD with smoking history
GENI/TBI ordered.
# Obstructive sleep apnea
#Chronic HFpEF
Euvolemic at present time
Consulted Cardiology for pre-procedure evaluation
# Type 2 diabetes
- Insulin sliding scale
# Gout
- Continue allopurinol
#Permanent atrial fibrillation/ Ventricular fibrillation status post ICD
- Hold Eliquis
- Continue sotalol
- Continue metoprolol, digoxin
#Essential hypertension
#Former alcohol use disorder
- Not drinking significantly at this time
#Smoking history
-Current smoker
- Nicotine patch
Full code
DVT prophylaxis�SCDs
Anticipated Discharge: 24 - 48 hours
Subjective/Interval History
-
Date of Service: October 27, 2024
Seen post endoscopy
Objective Data
-
Labs:
Laboratory Results
10/27/24 10/27/24
05:46 07:15
WBC 7.5
Hgb 7.6 L
Hct 26.1 L
Plt Count 197
HCO3 23.5
Sodium 139
Potassium 5.1
Chloride 110 H
Carbon Dioxide 25
BUN 59 H
Creatinine 2.0 H
Glucose 96
Calcium 7.9 L
Vital Signs:
Vital Signs
Temp Pulse Resp BP Pulse Ox
97.7 F 65 16 146/57 96
10/27/24 11:57 10/27/24 11:57 10/27/24 11:57 10/27/24 11:57 10/27/24 11:57
I&O
10/26/24 10/27/24 10/28/24
06:59 06:59 06:59
Intake Total 2420 / 2420 760 / 760
Balance 2420 / 2420 760 / 760
Data Reviewed
-
Total Time Spent with Patient (in minutes): 55
[2024-10-27] MEDS: FERRLECIT 110 MG IV (13:05)
--- NOTE | 2024-10-27 14:09 | W.PN.PUL3 ---
Today's Communication / Plan
-
Continue inhaler therapy
Monitor mental status-currently at baseline
BiPAP if necessary and HS if patient tolerates-intolerant.
Follow H&H
Continue PPI
Will follow briefly
Assessment
-
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
heart failure with recovered LVEF, pulmonary hypertension and valvular heart disease with moderate TR and history of MR who presents for anemia. Patient's been having dark stool prior to his hospital arrival, and has been feeling fatigue for weeks.
He has been continuing to take Eliquis. Also having occasional abdominal pain. Has not been taking significant amount of NSAIDs and denies having a prior EGD done in the past. In the ER he was afebrile, hemodynamically stable with pulse rate 75
and BP 134/40, and saturating 94% on room air. Pertinent labs showed an Hb of 5.1, WBC 9.9, platelet count 299, INR 1.98, potassium 5.2, creatinine 1.9, BUN 90, and iron level <20. Patient was typed and crossed, and was started on multiple blood
unit PRBC transfusions. He was admitted to the floor, GI consulted, and given his multiple pulmonary comorbidities, pulmonary service now consulted for preprocedure evaluation/optimization.
Chronic conditions HEALTH OUTCOMES LIAISON: A-fib on Eliquis, COPD on Trelegy requiring 1 L/min with exertion per prior 6MWT (October 2023), pulmonary nodule in HAM, history of V-fib arrest (October 2018) now on sotalol, DM type II, cataracts, CKD, hypertension, FLAVIO,
history of chronic systolic heart failure now with recovered LVEF (50-55% per TTE from 08/19/2024), NICM, pulmonary hypertension (last PASP was 92 mmHg on TTE from 08/19/2024 with moderate TR, dilated RA and normal RV size/function), history of
colonic polyps complicated by post polypectomy bleed
Impression:
#Acute gastrointestinal hemorrhage with suspected UGIB
#Acute on chronic anemia now due to acute blood loss
#Chronic anticoagulation use with Eliquis
#Preoperative pulmonary risk stratification in this patient with Class IV COPD/emphysema, PH + chronic cough with lower lobe predominant bronchial wall thickening with distal airway mucoid impaction
#Left upper lobe nodule measuring 2.2 x 1.6 x 1.4 cm (prior PET/CT in 12/2023 measured 2.8 x 2.8 cm with max SUV 21.5 (delayed 23.5) - never biopsied as pt wanted to think about it)
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
#History of FLAVIO intolerant/noncompliant to PAP therapy � overall AHI was mildly 6.1 events/hour with erasto O2 saturation 77%, however REM specific index was severely elevated at 62.1 events/hour
#Chronic hypercapnic respiratory failure (end-tidal CO2 during his PSG in July 2023 showed an average of 46 mmHg although it did go as high as 66 mmHg)
#Pulmonary hypertension (last PASP was 92 mmHg on TTE from 08/19/2024 with moderate TR, dilated RA and normal RV size/function)
#Paroxysmal A-fib on Eliquis
#History of V-fib arrest (10/2017) s/p ICD for secondary prevention (12/2017) now on sotalol
#DM type II
#CKD
#Hypertension
Plan:
-
From the pulmonary perspective: COPD at baseline.
Chronic wheezing-no evidence for acute exacerbation.
Continue inhaler therapy
No evidence for acute exacerbation.
-
GI bleed:
Status post EGD 10/27/2024
Few, superficial, non-bleeding and well-healed gastric ulcers with
a clean ulcer base (Toni Class III) found in the gastric body and
pylorus
Management per primary team and GI.
-
He is currently wheezing however this is chronic, heard on multiple prior visits in outpatient pulmonary office with Dr. Ashby - this is explained by his continued tobacco smoking use with chronic cough and his bronchiolitis seen on imaging; most
recent spirometry performed on 04/04/2024 showed very severe COPD with post-bronchodilator FEV1: 1.07 L / 29% predicted; also with concomitant severe restrictive defect with post-BD FVC: 1.95 L / 39% predicted.
- Continue with Symbicort 160 mcg + Spiriva Respimat 2.5mcg and prn nebulized albuterol
- Try to avoid systemic corticosteroids given gastric ulcer.
- Maintain SpO2 88-95% with supplemental O2 as needed; check ambulatory pulse oximetry prior to discharge
- Blood gas- chronic respiratory acidosis (baseline serum bicarbonate level is between 30�36)-suspect COPD and possibly obesity hypoventilation syndrome.
Mental status baseline
Intolerant to BiPAP. Use as needed depending mental status
Avoid sedatives
-
Cardiology also consulted given patient's history of A-fib on Eliquis + Hx of VF arrest on sotalol
Oral diuretics
Anticoagulation on hold
Smoking cessation encouraged.
Continue nicotine patch/gum
- Incentive spirometer encouraged q1hr while awake
- PT/OT, once bleed has been stabilized
- DVT ppx: SCDs only for now; holding Eliquis in setting of acute GIB
Prior discussions:
Pulmonary service will continue to follow along. Recommend patient follow-up with our pulmonary office again after discharge, as Dr. Ashby was reviewing his known left upper lobe nodule and had been urging the patient to get a biopsy, however
patient has been wanting to think about it and has not followed up since April 2024. I do strongly recommend that the patient follow-up with our office and seriously discuss the risks and benefits of obtaining a left upper lobe biopsy vs
continued radiographic surveillance. On 10/26 Dr. Camacho reinforced this, and also spoke with his and answered all her questions.
Total time spent today was 37 minutes for this encounter. Time includes reviewing laboratory test/imaging results, reviewing pertinent medical records, obtaining and reviewing medical history, performing an appropriate exam, ordering medications,
tests and procedures. Time also includes documentation of this encounter, coordinating patient care and communicating with other healthcare professionals. Total time does not include separately billed tests performed on this date of service.
Subjective Data
-
Date of Service:
Date of Service: October 27, 2024
Chief Complaint: Pulmonary Follow Up (Severe COPD)
Subjective:
Denies pulmonary complaints
Status post EGD 10/27/2024
Review of Systems
General: Fever (n)
Objective Data
Data Reviewed
Vital Signs / I&O / Oxygen:
Vital Signs
Temp Pulse Resp BP Pulse Ox
97.7 F 65 16 146/57 96
10/27/24 11:57 10/27/24 11:57 10/27/24 11:57 10/27/24 11:57 10/27/24 11:57
Intake and Output
10/26/24 10/27/24 10/28/24
06:59 06:59 06:59
Intake Total 2420 / 2420 760 / 760
Balance 2420 / 2420 760 / 760
SaO2 96
Nasal Cannula flow liters per 2
minute
Physical Exam
General: Respiratory Distress (negative), Comfortable, Chills (negative) and Sweats (negative)
HEENT: Normocephalic and Anicteric
Cardiovascular: Irregular Rhythm and Peripheral Edema (negative)
Respiratory: Crackles (Bilaterally), Rhonchi (Bilaterally) and Non-Labored Respirations
GI: Soft, Non Distended, Non Tender and Normal Bowel Sounds
Neurology: Awake, Alert, Oriented and Tremors (negative)
Skin: Warm, Dry, Cyanosis (negative) and Jaundice (negative)
Labs/Micro/Reports
Lab Data
10/27/24 07:15
10/27/24 07:15
Laboratory Results
10/27/24
05:46
pH 7.28 L
pCO2 50 H
pO2 61 L
HCO3 23.5
O2 Delivery Level
Microbiology
10/25/24 05:38 Nose MRSA Screen - Final
No Methicillin Resistant Staphylococcus aureus isolated.
--- NOTE | 2024-10-27 15:06 | PTCARENOTE ---
Received patient post EGD, clear liquid diet ordered. Pt upset and says he is starving and needs to eat. RN and hospitalist explained reasoning and importance of clear liquid diet. Patient states he needs to eat. Dr. Tavera notified and approved
patient to have regular diet.
--- NOTE | 2024-10-27 15:18 | W.PN.UPDATE ---
Update Note
Progress Note Update
Brief GI Note:
Received page from nursing that patient is refusing colonoscopy and requesting regular diet. He has received a total of 5 uPRBCs and only had a few, shallow/superficial gastric ulcers during his EGD. Although he was found to have PUD, this was not
felt to entirely explain the degree of his anemia given the endoscopic appearance of the ulcers. Strongly advised pursuing a colonoscopy but patient declined after EGD and previously declined on admission. This would technically be against medical
advise particularly given the need to restart his a/c. Regardless, as no plans for a colonoscopy (as patient requesting a regular diet) GI will sign-off. Please call back with any questions or concerns.
Discussed with primary internal medicine team. GI will sign-off, please recontact as needed.
[2024-10-27 16:40] LABS: Glucose - Point of Care 159 mg/dl (70-99)
[2024-10-27] MEDS: NOVOLOG FLEXPEN-LOW RESISTANCE 1 UNITS SC (17:23)
[2024-10-27] MEDS: BETAPACE 120 MG PO (17:24)
[2024-10-27 17:27] LABS: Hematocrit 27.5 % (39.0-52.0); Hemoglobin 8.1 g/dL (13.0-18.0); Mean Corp Hgb Conc. 29.5 g/dL (33.0-37.0); Mean Corpuscular Volume 90.8 fL (80.0-94.0); Platelet Count 197 10^3/uL (130-400); Red Cell Dist. Width 18.3 % (11.5-14.5)
[2024-10-27] MEDS: ELIQUIS 5 MG PO (21:19)
[2024-10-27 21:23] LABS: Glucose - Point of Care 129 mg/dl (70-99)
[2024-10-28] MEDS: NORCO 7.5/325 1 TABLET PO ×3 (05:07→16:16)
[2024-10-28 06:00] VITALS: BMI 26.1
[2024-10-28 06:36] LABS: Hematocrit 25.9 % (39.0-52.0); Hemoglobin 7.6 g/dL (13.0-18.0); Mean Corp Hgb Conc. 29.3 g/dL (33.0-37.0); Mean Corpuscular Volume 90.2 fL (80.0-94.0); Nucleated Red Blood Cells % 2.5 % (-); Platelet Count 208 10^3/uL (130-400); Red Cell Dist. Width 18.4 % (11.5-14.5)
[2024-10-28 07:05] LABS: Blood Urea Nitrogen 53 mg/dl (9-20); Calcium 7.6 mg/dl (8.4-10.2); Carbon Dioxide 24 mmol/L (22-30); Chloride 109 mmol/L (98-107); Estimated Creatinine Clearance 40 ml/min; Glucose 95 mg/dl (70-99); Potassium 4.9 mmol/L (3.5-5.1); Sodium 138 mmol/L (135-145); eGFR 36.13
[2024-10-28 07:42] LABS: Glucose - Point of Care 135 mg/dl (70-99)
--- NOTE | 2024-10-28 08:01 | W.PN.CD ---
Addendum entered and electronically signed by Johnny Lozano MD 10/28/24 08:15:
Patient called me back into the room because he wanted to discuss further. He is very worried about recurrent bleeding. He would like to stay off of Eliquis until his colonoscopy. This is not my medical recommendation but if he refuses to stay in
the hospital to monitor for recurrent bleeding/hemoglobin drop, then it may be safer to send him out off of anticoagulation. He will hold Eliquis until outpatient colonoscopy. I emphasized that he needs to call our office if his colonoscopy ends up
being scheduled more than 2 weeks from now. He verbalized understanding. No longer needs labs later this week.
Original Note:
Today's Communication / Plan
-
If patient is going home today, would recommend CBC Thurs/Fri
Continue Eliquis for now. May need to consider Watchman if he bleeds again
Outpatient colonoscopy
Impression / Plan
-
I/P: 64M with with HFrEF (recovered EF), nonischemic cardiomyopathy, CKD stage IIIb, permanent atrial fibrillation (on apixaban), VF arrest (on sotalol, ICD in place), hypertension, COPD, and abnormal PET (lung) who presented to the emergency
department complaining of black stool. EGD yesterday with a few shallow/superficial gastric ulcers (was not thought to explain degree of anemia). Patient declining inpatient colonoscopy.
Primary international operations manager: Dr. Davis
GI bleed, severe, symptomatic
- s/p 5U pRBCs
- EGD 10/27 with a few shallow/superficial gastric ulcers, not thought to explain degree of anemia. GI recommending inpatient colonoscopy but patient is declining
- Eliquis resumed 10/27 PM with stable hgb. If he is leaving, would recommend CBC Thurs/Fri to ensure stable hgb
- Patient would like to do outpatient colonoscopy
Permanent atrial fibrillation
- Rate controlled
- No plans for rhythm control
- Oral Anticoagulation: Apixaban resumed as above
- [id number]: score at least 3 (Heart failure, HTN, age 75 or more, Diabetes Mellitus, prior Stroke/TIA, Vascular disease, age 65-74, female gender)
- We can consider Watchman device if he bleeds again
HFrEF ,recovered EF - chronic
-He does not appear to be in decompensated heart failure
-GDMT as tolerated:
-Diuretic: Furosemide 20mg MoWeFr
-ROHITH/ARB/ARNI: None due to significant hyperkalemia in the past
-SGLT2 inhibitor: Farxiga 10 mg daily
-Aldosterone agonist: None due to significant hyperkalemia in the past
-Beta shady: Metoprolol succinate and sotalol (VF)
-Isosorbide/Hydralazine:�Not indicated
-ICD: Medtronic
-Trend daily weight, I/O, and BMP
CKD stage IIIb, with proteinuria, follows with Dr. Bauer in the outpatient setting
Suspected neoplasm of lung, abnormal PET, pulmonary evaluation was recommended at his last office visit
HTN, stable, follow
VF, suppressed on sotalol, ICD in place
COPD, no acute exacerbation, per primary
Current smoker, full cessation recommended
Subjective: No recurrent dark, tarry stools since 10/26. Patient is insisting that he leave today. Needs to get home because his is going out of town.
Physical Exam
Vital Signs/Labs
Vital Signs
Temp Pulse Resp BP Pulse Ox
97.9 F 66 20 134/57 94
10/27/24 23:52 10/27/24 23:52 10/27/24 23:52 10/27/24 23:52 10/27/24 23:52
10/27/24 10/28/24 10/29/24
06:59 06:59 06:59
Actual Weight 191 lb 6.4 oz 192 lb 4 oz
10/28/24 06:11
10/28/24 06:11
PT 22.6 Sec (11.4-14.6) H 10/24/24 12:04
INR 1.98 10/24/24 12:04
APTT 42.2 Sec (23.4-35.0) H 10/24/24 12:04
Magnesium 2.3 mg/dl (1.6-2.3) 10/26/24 07:00
10/26/24
07:00
Kvo-H-Nxmrgmhdxac Pept 2330
Physical Exam
Constitutional: No acute distress and Comfortable
Cardiovascular: Pedal edema is absent, Rhythm/rate is irregular and S1S2 is normal
Respiratory: Respiratory effort normal and Wheeze Present
Neuro/Psych: AO x 3
Data Reviewed
-
Date of Service: October 28, 2024
Medical Decision Making: Reviewed Test Results, Independent Historian Assessment, Test Interpretation and Review of Case with other Provider
EKG: Tracing Personally Visualized and interpreted
Echo: Report Reviewed by me
Medical Tests (PFT, Pathology etc): Report Reviewed by me
Labs: Labs Reviewed by me
[2024-10-28] MEDS: SYMBICORT 160/4.5 MCG INHALER 2 PUFF INH (08:13)
[2024-10-28] MEDS: SPIRIVA RESPIMAT 2.5 MCG 2 PUFF INH (08:13)
[2024-10-28] MEDS: ZYLOPRIM 100 MG PO (08:16)
[2024-10-28] MEDS: SANTYL OINTMENT 1 APPLIC TOPICAL (08:16)
[2024-10-28] MEDS: NOVOLOG FLEXPEN-LOW RESISTANCE SC ×2 (08:16→11:52)
[2024-10-28] MEDS: ELIQUIS PO ×2 (08:16→08:26)
[2024-10-28] MEDS: PROTONIX IV 40 MG IV (08:18)
[2024-10-28] MEDS: TOPROL XL 50 MG PO (08:18)
[2024-10-28] MEDS: NSS (PRESERVATIVE FREE) 10 ML IV (08:18)
[2024-10-28] MEDS: HYDROPHOR 1 APPLIC TOPICAL (08:18)
[2024-10-28] MEDS: NICODERM TRANSDERMAL TRANSDERM (08:18)
[2024-10-28 08:46] VITALS: BP 129/50
--- NOTE | 2024-10-28 08:59 | PN.CDI ---
CDI
- -
CDI:
Physician Documentation Request
Admit Date: 10/24/24 13:55
Dear Doctor Noa,
Pulmonary notes indicate patient has class IV COPD on triple inhaler therapy. The progress note contains a diagnosis of 'Chronic hypercapnic respiratory failure'
Hospitalist progress notes state ' chronic hypoxic respiratory failure'
In an attempt to clarify potentially conflicting documentation, please clarify the type of chronic respiratory failure:
Chronic hypercapnic respiratory failure
Chronic hypoxic respiratory failure
Other
Use of terms such as suspected, likely, concern for, or probable (associated with a specific diagnosis that is being evaluated, monitored, or treated as if it exists) are acceptable and can be coded in the inpatient setting, when documented at the
time of discharge.
Thank you,
Devi Fernando RN, BSN
CDI Specialist
tiger text
Please use your independent medical judgment in providing your response.
[2024-10-28 11:36] LABS: Glucose - Point of Care 135 mg/dl (70-99)
--- NOTE | 2024-10-28 12:21 | W.PN.PUL3 ---
Today's Communication / Plan
-
Continue inhalers
Avoid sedatives
Strongly encouraged to follow-up with pulmonary to evaluate his lung nodule
Smoking cessation
Sign off
Assessment
-
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
heart failure with recovered LVEF, pulmonary hypertension and valvular heart disease with moderate TR and history of MR who presents for anemia. Patient's been having dark stool prior to his hospital arrival, and has been feeling fatigue for weeks.
He has been continuing to take Eliquis. Also having occasional abdominal pain. Has not been taking significant amount of NSAIDs and denies having a prior EGD done in the past. In the ER he was afebrile, hemodynamically stable with pulse rate 75
and BP 134/40, and saturating 94% on room air. Pertinent labs showed an Hb of 5.1, WBC 9.9, platelet count 299, INR 1.98, potassium 5.2, creatinine 1.9, BUN 90, and iron level <20. Patient was typed and crossed, and was started on multiple blood
unit PRBC transfusions. He was admitted to the floor, GI consulted, and given his multiple pulmonary comorbidities, pulmonary service now consulted for preprocedure evaluation/optimization.
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
history of chronic systolic heart failure now with recovered LVEF (50-55% per TTE from 08/19/2024), NICM, pulmonary hypertension (last PASP was 92 mmHg on TTE from 08/19/2024 with moderate TR, dilated RA and normal RV size/function), history of
colonic polyps complicated by post polypectomy bleed
Impression:
#Acute gastrointestinal hemorrhage with suspected UGIB
#Acute on chronic anemia now due to acute blood loss
#Chronic anticoagulation use with Eliquis
#Preoperative pulmonary risk stratification in this patient with Class IV COPD/emphysema, PH + chronic cough with lower lobe predominant bronchial wall thickening with distal airway mucoid impaction
#Left upper lobe nodule measuring 2.2 x 1.6 x 1.4 cm (prior PET/CT in 12/2023 measured 2.8 x 2.8 cm with max SUV 21.5 (delayed 23.5) - never biopsied as pt wanted to think about it)
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
#History of FLAVIO intolerant/noncompliant to PAP therapy � overall AHI was mildly 6.1 events/hour with erasto O2 saturation 77%, however REM specific index was severely elevated at 62.1 events/hour
#Chronic hypercapnic respiratory failure (end-tidal CO2 during his PSG in July 2023 showed an average of 46 mmHg although it did go as high as 66 mmHg)
#Pulmonary hypertension (last PASP was 92 mmHg on TTE from 08/19/2024 with moderate TR, dilated RA and normal RV size/function)
#Paroxysmal A-fib on Eliquis
#History of V-fib arrest (10/2017) s/p ICD for secondary prevention (12/2017) now on sotalol
#DM type II
#CKD
#Hypertension
Plan:
-
From the pulmonary perspective: COPD at baseline.
No significant bronchospastic on exam.
Continue inhaler therapy without change.
No evidence for acute exacerbation.
-
GI bleed:
Status post EGD 10/27/2024
Few, superficial, non-bleeding and well-healed gastric ulcers with
a clean ulcer base (Toni Class III) found in the gastric body and
pylorus
GI has signed off patient declined colonoscopy inpatient.
-
He is currently wheezing however this is chronic, heard on multiple prior visits in outpatient pulmonary office with Dr. Ashby - this is explained by his continued tobacco smoking use with chronic cough and his bronchiolitis seen on imaging; most
recent spirometry performed on 04/04/2024 showed very severe COPD with post-bronchodilator FEV1: 1.07 L / 29% predicted; also with concomitant severe restrictive defect with post-BD FVC: 1.95 L / 39% predicted.
- Continue with Symbicort 160 mcg + Spiriva Respimat 2.5mcg and prn nebulized albuterol
- Try to avoid systemic corticosteroids given gastric ulcer.
- Maintain SpO2 88-95% with supplemental O2 as needed; check ambulatory pulse oximetry prior to discharge
- Blood gas- chronic respiratory acidosis (baseline serum bicarbonate level is between 30�36)-suspect COPD and possibly obesity hypoventilation syndrome.
Mental status baseline
Avoid sedatives
This could be addressed in the outpatient setting. Likely combination of COPD and obesity hypoventilation
-
Cardiology also consulted given patient's history of A-fib on Eliquis + Hx of VF arrest on sotalol
Oral diuretics
Anticoagulation on hold-correspondence reviewed. Restart after colonoscopy is performed at some point. Patient understands risk of stroke without taking anticoagulation.
Smoking cessation encouraged.
Continue nicotine patch/gum
- Incentive spirometer encouraged q1hr while awake
- PT/OT, once bleed has been stabilized
- DVT ppx: SCDs only for now; holding Eliquis in setting of acute GIB
Prior discussions:
Pulmonary service will continue to follow along. Recommend patient follow-up with our pulmonary office again after discharge, as Dr. Ashby was reviewing his known left upper lobe nodule and had been urging the patient to get a biopsy, however
patient has been wanting to think about it and has not followed up since April 2024. I do strongly recommend that the patient follow-up with our office and seriously discuss the risks and benefits of obtaining a left upper lobe biopsy vs
continued radiographic surveillance. On 10/26 Dr. Camacho reinforced this, and also spoke with his and answered all her questions.
-
No additional pulmonary recommendations
Sign off
Subjective Data
-
Date of Service:
Date of Service: October 28, 2024
Chief Complaint: Pulmonary Follow Up (Severe COPD)
Subjective:
Denies any pulmonary complaints
Correspondence from GI noted-patient refused colonoscopy. Wanted to eat
Review of Systems
Cardiopulmonary: Dyspnea (Not at rest)
Neuro: Headache (Denies)
Objective Data
Data Reviewed
Vital Signs / I&O / Oxygen:
Vital Signs
Temp Pulse Resp BP Pulse Ox
97.8 F 71 14 129/50 95
10/28/24 08:46 10/28/24 08:46 10/28/24 08:46 10/28/24 08:46 10/28/24 08:46
Intake and Output
10/27/24 10/28/24 10/29/24
06:59 06:59 06:59
Intake Total 760 / 760 1440 / 1440
Balance 760 / 760 1440 / 1440
SaO2 95
Nasal Cannula flow liters per 2
minute
Physical Exam
General: Respiratory Distress (negative), Comfortable, Chills (negative) and Sweats (negative)
HEENT: Normocephalic and Anicteric
Cardiovascular: Irregular Rhythm and Peripheral Edema (negative)
Respiratory: Crackles (Bilaterally), Rhonchi (Bilaterally) and Non-Labored Respirations
GI: Soft, Non Distended, Non Tender and Normal Bowel Sounds
Neurology: Awake, Alert, Oriented and Tremors (negative)
Skin: Warm, Dry, Cyanosis (negative) and Jaundice (negative)
Labs/Micro/Reports
Lab Data
10/28/24 06:11
10/28/24 06:11
Microbiology
10/25/24 05:38 Nose MRSA Screen - Final
No Methicillin Resistant Staphylococcus aureus isolated.
--- NOTE | 2024-10-28 12:41 | W.PN.HOSP.TC ---
Addendum entered and electronically signed by John Latham MD 10/29/24 14:14:
Chronic hypercapnic respiratory failure
Original Note:
Today's Communication/Plan
-
transfuse 1u prbc prior to dc
refusing colonoscopy and GENI/TBI
Eliquis on hold
Assessment / Plan
Assessment / Plan
Physical Exam
General: No Apparent Distress
HEENT: NormoCephalic, Moist mucous membranes and Atraumatic
Respiratory: Clear
Cardiac: S1/S2 , Murmur
GI: Soft, Non Tender, Non Distended and Normal Bowel Sounds;
Musculoskeletal: LE venous stasis and left leg wound
Neuro: AAO X3, Nonfocal/grossly intact, he followed commands
Psych: calm, no agitation.
A/P:
# Symptomatic acute blood loss anemia due to GI bleeding exacerbated by use of Eliquis
- Hemoglobin 5.1 on admission
- s/p 4 units of blood, Hgb at 7.6. Will transfuse additional 1 unit.
- EGD report noted and discussed with gastroenterology. Gastroenterology recommended colonoscopy however, patient refused.
- Protonix 40 BID
- Low iron studies
- Normal B12 & folate
- Pt states he wants to hold of on taking Eliquis. States he will undergo colonoscopy as outpatient. Pt to call cardiology if procedure delayed >2 weeks. Pt verbalized understanding. d/w with Gi and cardiology.
#Acute hyperkalemia
Resolved
# Chronic pain syndrome with opiate dependency
Pt wanted Vicodin certain hours, adjusted that with pharmacy
He denies worsening pain
# Acute on CKD IIIb
No hematuria or flank pain
Monitor renal function, treating anemia will help
# chronic hypoxic respiratory failure on home O2 but reports not needing to use it regularly
# COPD
- Continue Trelegy, albuterol
Chest x ray
Pulmonary pulmonary following
#Suspected PAD with smoking history
GENI/TBI ordered however, pt refused.
# Obstructive sleep apnea
#Chronic HFpEF
Euvolemic at present time
cont home regimen
# Type 2 diabetes
- Insulin sliding scale
# Gout
- Continue allopurinol
#Permanent atrial fibrillation/ Ventricular fibrillation status post ICD
- Hold Eliquis
- Continue sotalol
- Continue metoprolol, digoxin
#Essential hypertension
#Former alcohol use disorder
- Not drinking significantly at this time
#Smoking history
-Current smoker
- Nicotine patch
Full code
DVT prophylaxis�SCDs
More than 30 minutes spent in discharge including
Final examination of the patient
Summarizing hospital stay
Instructions for continuing care to all relevant caregivers
Preparation of discharge records, prescriptions, and referral forms
Total time spent (in minutes): 52
Anticipated Discharge: Today
Subjective/Interval History
-
Date of Service: October 28, 2024
Pt insisting on going home
does not want to stay in hospital
Objective Data
-
Labs:
Laboratory Results
10/28/24
06:11
WBC 7.9
Hgb 7.6 L
Hct 25.9 L
Plt Count 208
Sodium 138
Potassium 4.9
Chloride 109 H
Carbon Dioxide 24
BUN 53 H
Creatinine 2.0 H
Glucose 95
Calcium 7.6 L
Vital Signs:
Vital Signs
Temp Pulse Resp BP Pulse Ox
97.8 F 71 14 129/50 95
10/28/24 08:46 10/28/24 08:46 10/28/24 08:46 10/28/24 08:46 10/28/24 08:46
I&O
10/27/24 10/28/24 10/29/24
06:59 06:59 06:59
Intake Total 760 / 760 1440 / 1440
Balance 760 / 760 1440 / 1440
--- NOTE | 2024-10-28 12:49 | W.DCSUMMARY ---
Discharge Summary
Discharge Data
Date of Admission: 10/24/24
Date of Discharge: 10/28/24
-
Pending Results: No
Hospital Course
64-year-old male past medical history of atrial fibrillation, chronic coagulopathy on Eliquis, class IV COPD, left upper lobe pulmonary nodule, history of V-fib/V. tach arrest as post ICD implantation, FLAVIO, hypertension, CKD, congestive heart
failure, pulmonary hypertension, tobacco abuse on daily basis who is presenting with fatigue for weeks. Patient was found to have anemia. Patient was suspected with gastrointestinal bleeding. Patient received total of 5 days of packed red blood
cell transfusion. Eliquis was held. After Eliquis washout patient underwent endoscopy and post endoscopy gastroenterology recommended patient to undergo colonoscopy. Patient refused colonoscopy and said he will schedule it as outpatient. Patient
was maintained on Protonix twice daily. Patient also with further discussion with cardiology and gastroenterology. Patient stated he will hold off on taking Eliquis for now. Will schedule colonoscopy as outpatient. Patient knows to call
cardiology if the procedure is delayed greater than 2 weeks. Patient was also recommended to undergo lower extremity GENI and TBI after being evaluated with wound care people. Patient refused to go GENI and said he will schedule as outpatient.
Patient was recommended to follow-up closely with primary care doctor and gastroenterology and cardiology.
Discharge Plan
-
Patient Disposition: Home (Routine Discharge)
Discharge Diagnosis/Procedures: Acute blood loss anemia due to GI bleeding exacerbated by the use of Eliquis
Status post blood transfusion
Acute hypokalemia
Chronic kidney disease
Condition: Fair
Diet: As tolerated
Blood Work: CBC in 3 to 5 days via primary doctor to assess anemia.
Others Tests: Recommend GENI/TBI for assessment of peripheral arterial disease via primary doctor
Activity Restrictions/Additional Instructions:
Wound Care Instructions
L lateral leg: clean with soap and water, Santyl then adaptic, ABD pad and melani daily.
mineral oil(aquaphor) to moisturize legs daily.
If R leg weeps can apply adaptic and dry dressing daily.
Leg elevation when sitting
Smoking cessation plan
Follow up at wound care center call for an appointment.
Follow-up with gastroenterology for colonoscopy-call make appointment. If colonoscopy delayed greater than 2 weeks call cardiology to call management of Eliquis.
Referrals:
Johnny Lozano MD [Active, Cardiology]
Referral Note: call cardiology office if the colonoscopy ends up being more than 2 weeks away
Manasa Cam DO [Active, Pulmonary Medicine] - in two to three weeks
Referral Note: Patient was supposed to see Dr. Ashby in July 2024
Maycol Dhaliwal MD [Family Provider] - in less than 1 week
Prescriptions:
New
pantoprazole [Protonix] 40 mg tablet,delayed release (DR/EC)
40 mg PO DAILY Qty: 30 0RF
Continued
allopurinol 100 mg Tablet
100 mg PO DAILY
sotalol 120 mg Tablet
120 mg PO QPM
digoxin 0.125 MG tablet
0.125 mg PO MOWEFR
hydrocodone-acetaminophen 10-325 mg Tablet
1 tab PO QID
metoprolol succinate 50 mg tablet extended release 24 hr
50 mg PO BID
furosemide 20 mg tablet
20 mg PO MOWEFR
furosemide 20 mg tablet
20 mg PO DAILYPRN PRN (Reason: ankle swelling from fluid)
levalbuterol HCl 1.25 mg/3 mL Solution For Nebulization
1.25 mg INHALATION QIDPRN PRN (Reason: shortness of breath)
dapagliflozin propanediol [Farxiga] 10 mg tablet
10 mg PO DAILY
Trelegy Ellipta 200-62.5-25 mcg blister with device
1 ea INHALATION DAILY
polyethylene glycol 3350 17 gram/dose powder
17 g PO DAILY PRN (Reason: constipation)
Held
Eliquis 5 MG tablet
5 mg PO BID Qty: 0 0RF
Hold Instructions: Resume on 11/11/24.
Discharge Date and Time
Print Language: LUX[place]
--- NOTE | 2024-10-28 14:34 | CM ---
Mercedes is for discharge to home today, patient declines visiting nurse services after discharge, home with spouse, daughter also to assist with discharge.
Plan; Home no needs.
[2024-10-28 15:46] VITALS: BP 149/66
[2024-10-28 16:01] VITALS: BP 146/61
[2024-10-28 16:08] VITALS: BP 135/56
[2024-10-28 18:10] VITALS: BP 142/80
== END 2024-10-28 18:49 | disposition home or self-care (01) | DRG 378 ==
LOC: 4 WEST ACU 13:55
PROVIDERS: Internal Medicine; ADMITTING PHYSICIAN Hospitalist; ATTENDING PHYSICIAN Hospitalist; CONSULT PHYSICIAN Student in an Organized Health Care Education/Training Program; EMERGENCY PHYSICIAN Student in an Organized Health Care Education/Training Program; FAMILY PHYSICIAN Family Medicine; OTHER PHYSICIAN Internal Medicine Cardiovascular Disease; OTHER PHYSICIAN Internal Medicine Critical Care Medicine
PROC: 30233N1 Transfusion of Nonautologous Red Blood Cells into Peripheral Vein, Percutaneous Approach (ICD-10-PCS; 2024-10-24)
PROC: 0DB98ZX Excision of Duodenum, Via Natural or Artificial Opening Endoscopic, Diagnostic (ICD-10-PCS; 2024-10-27)
PROC: 0DB78ZX Excision of Stomach, Pylorus, Via Natural or Artificial Opening Endoscopic, Diagnostic (ICD-10-PCS; 2024-10-27)
PROC: 0DB68ZX Excision of Stomach, Via Natural or Artificial Opening Endoscopic, Diagnostic (ICD-10-PCS; 2024-10-27)
DX: K25.4 Chronic or unspecified gastric ulcer with hemorrhage (principal); D62 Acute posthemorrhagic anemia; I13.0 Hypertensive heart and chronic kidney disease with heart failure and stage 1 through stage 4 chronic kidney disease, or unspecified chronic kidney disease; I48.21 Permanent atrial fibrillation; I50.32 Chronic diastolic (congestive) heart failure; I42.8 Other cardiomyopathies; J96.12 Chronic respiratory failure with hypercapnia; D68.32 Hemorrhagic disorder due to extrinsic circulating anticoagulants; F11.20 Opioid dependence, uncomplicated; G47.33 Obstructive sleep apnea (adult) (pediatric); E11.22 Type 2 diabetes mellitus with diabetic chronic kidney disease; M10.9 Gout, unspecified; N18.32 Chronic kidney disease, stage 3b; J43.9 Emphysema, unspecified; E78.00 Pure hypercholesterolemia, unspecified; J84.10 Pulmonary fibrosis, unspecified; I27.20 Pulmonary hypertension, unspecified; R91.1 Solitary pulmonary nodule; I08.1 Rheumatic disorders of both mitral and tricuspid valves; E87.6 Hypokalemia; F17.210 Nicotine dependence, cigarettes, uncomplicated; T45.515A Adverse effect of anticoagulants, initial encounter; E87.5 Hyperkalemia; K31.7 Polyp of stomach and duodenum; G89.4 Chronic pain syndrome; K29.80 Duodenitis without bleeding; Z79.01 Long term (current) use of anticoagulants; Z79.84 Long term (current) use of oral hypoglycemic drugs; Z79.899 Other long term (current) drug therapy; Z82.49 Family history of ischemic heart disease and other diseases of the circulatory system; Z86.0100 Personal history of colon polyps, unspecified; Z86.74 Personal history of sudden cardiac arrest; Z95.810 Presence of automatic (implantable) cardiac defibrillator; Z91.198 Patient's noncompliance with other medical treatment and regimen for other reason
CPT/HCPCS: 36430; 36600; 71046; 80048; 80053; 82010; 82607; 82728; 82746; 82805; 82962; 83036; 83540; 83550; 83605; 83735; 83880; 84100; 84132; 85025; 85027; 85610; 85730; 86850; 86900; 86901; 86920; 87070; 88305; 88342; 93005; 94640; 96365; 96366; 99291; J2916; P9016

== ENCOUNTER 2025-01-28 10:33 | Outpatient (RCR) | payer OTHER, SELFPAY ==
[2025-01-26 08:43] VITALS: BP 124/54
[2025-01-26] MEDS: VENOFER 110 MG IV (08:52)
[2025-01-26 10:00] VITALS: BP 145/42
[2025-01-28 10:45] VITALS: BP 126/53
[2025-01-28] MEDS: VENOFER 110 MG IV (11:05)
[2025-01-28 12:25] VITALS: BP 128/46
== END 2025-01-29 09:37 | disposition home or self-care (01) ==
LOC: OID 10:33
PROVIDERS: ATTENDING PHYSICIAN Internal Medicine; FAMILY PHYSICIAN Family Medicine
DX: D64.9 Anemia, unspecified (principal); N18.32 Chronic kidney disease, stage 3b; D63.1 Anemia in chronic kidney disease
CPT/HCPCS: 96365; J1756

== ENCOUNTER 2025-02-06 10:21 | Outpatient (RCR) | payer OTHER, SELFPAY ==
[2025-02-02 10:53] VITALS: BP 128/49
[2025-02-02] MEDS: VENOFER 110 MG IV (11:05)
[2025-02-02 12:25] VITALS: BP 131/58
[2025-02-04] MEDS: VENOFER 110 MG IV (10:36)
[2025-02-04 10:41] VITALS: BP 129/53
[2025-02-04 11:50] VITALS: BP 125/52
[2025-02-06] MEDS: VENOFER 110 MG IV (11:07)
[2025-02-06 11:12] VITALS: BP 120/53
[2025-02-06 12:09] LABS: Albumin 3.7 g/dl (3.5-5.0); Blood Urea Nitrogen 55 mg/dl (9-20); Calcium 8.4 mg/dl (8.4-10.2); Carbon Dioxide 25 mmol/L (22-30); Chloride 108 mmol/L (98-107); Glucose 88 mg/dl (70-99); Magnesium 1.9 mg/dl (1.6-2.3); Potassium 5.2 mmol/L (3.5-5.1); Sodium 140 mmol/L (135-145); eGFR 36.13
[2025-02-06 12:35] VITALS: BP 133/52
== END 2025-02-09 10:41 | disposition home or self-care (01) ==
LOC: OID 10:21
PROVIDERS: ATTENDING PHYSICIAN Internal Medicine; FAMILY PHYSICIAN Family Medicine
DX: D64.9 Anemia, unspecified (principal); R80.9 Proteinuria, unspecified; N18.32 Chronic kidney disease, stage 3b; I10 Essential (primary) hypertension
CPT/HCPCS: 36415; 80069; 83735; 96365; J1756